=== PATIENT | female | born 1935 | race Caucasian/White ===

== ENCOUNTER → 2016-11-02 | Outpatient (CLI) | payer MEDICARE, OTHER | LOC: MW.CHFP 09:43 | PROVIDERS: ATTEND Family Medicine | DX: R73.01 Impaired fasting glucose (principal); Z53.9 Procedure and treatment not carried out, unspecified reason ==

== ENCOUNTER 2017-05-28 08:00 | Inpatient (IN) | payer MEDICARE, OTHER ==
[2017-07-03] MEDS ORDERED: Famotidine 20 MG/2 ML SDV IVPUSH SCH (06:00)
[2017-07-03] MEDS ORDERED: Ketorolac 15 MG/ML SDV IVPUSH SCH ×2 (06:00→14:15)
[2017-07-03] MEDS ORDERED: Scopolamine 1.5 MG Transdermal Patch TRDERM SCH (06:00)
[2017-07-03] MEDS ORDERED: Acetaminophen 1,000 MG in Premix Bag 1 BAG IV SCH ×2 (06:00→14:00)
[2017-07-03] MEDS ORDERED: Lactated Ringers 1,000 ML IV SCH (06:00)
[2017-07-03] MEDS ORDERED: oxyCODONE ER 10 MG TAB.ER PO SCH ×2 (06:00→21:00)
[2017-07-03] MEDS ORDERED: Tranexamic Acid 4,000 MG in Sodium Chloride 0.9% 100 ML IV SCH (08:00)
[2017-07-03] MEDS ORDERED: ceFAZolin 1 GM in Premix Bag 1 BAG IV SCH (08:00)
[2017-07-03] MEDS ORDERED: Ropivacaine 49.25 ML, Ketorolac 30 MG, EPINEPHrine 0.5 MG, cloNIDine 80 MCG in Sodium C... INJECT ONE (08:00)
[2017-07-03] MEDS ORDERED: Propofol 200 MG/20 ML SDV ONE (09:35)
[2017-07-03] MEDS ORDERED: Midazolam 1 MG/ML 2 ML SDV ONE (09:35)
[2017-07-03] MEDS ORDERED: diphenhydrAMINE 50 MG/ML SDV ONE (09:35)
[2017-07-03] MEDS ORDERED: Ondansetron 4 MG/2 ML SDV ONE (09:35)
[2017-07-03] MEDS ORDERED: fentaNYL 100 MCG/2 ML SDV ONE (09:35)
[2017-07-03] MEDS ORDERED: ceFAZolin 1 GM Vial ONE (09:36)
[2017-07-03] MEDS ORDERED: ePHEDrine 50 MG/ML SDV ONE (12:17)
[2017-07-03] MEDS ORDERED: oxyCODONE 5 MG Tab PO PRN (13:49)
[2017-07-03] MEDS ORDERED: HYDROmorphone 2 MG/ML Syringe IVPUSH PRN (14:21)
[2017-07-03] MEDS ORDERED: diphenhydrAMINE 50 MG Cap PO PRN (14:23)
[2017-07-03] MEDS ORDERED: Ondansetron 4 MG/2 ML SDV IVPUSH PRN (14:28)
[2017-07-03] MEDS ORDERED: Acetaminophen/HYDROcodone 325-10 MG Tab PO PRN (15:23)
[2017-07-03] MEDS ORDERED: oxyCODONE ER 10 MG TAB.ER ONE (17:24)
[2017-07-03] MEDS: Acetaminophen 1,000 MG in Premix Bag 1 BAG IV SCH ×2 (17:30→22:56)
--- NOTE | 2017-07-03 17:39 | PCM.CONS ---
H&P History of Present Illness - General Date of Service: 07/03/17 Admit Problem/Dx: Admission Diagnosis/Problem Admission Diagnosis/Problem Replacement of total knee joint Source of Information: Patient, Old Records (Dr. 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 Patient arrived to floor from PACU. She is alert and oriented, slightly drowsy. She denies chest pain, SOB or palpitations. No pain to L knee. Lam in place. Reports feeling well this morning prior to surgery and was doing well at home. Her plan is to return to home with upon discharge. ECHO 03/2016 reported EF 60-65% with some diastolic dysfunction, moderate pulmonary HTN, bioprosthetic aortic valve working well. PCP, Dr Burroughs. - Related Data Allergies/Adverse Reactions: Allergies Allergy/AdvReac Type Severity Reaction Status Date / Time nitrofurantoin Allergy Rash Verified 06/29/17 13:50 [From Macrobid] nitrofurantoin Allergy Rash Verified 06/29/17 13:50 macrocrystalline [From Macrobid] Home Medications: Home Meds Amitriptyline [Elavil] 5 mg PO BEDTIME 06/29/17 [History] Aspirin/Dipyridamole [Aspirin-Dipyridam ER 25-200 mg] 1 cap PO BIDMEALS [History] Calcium Carbonate [Calcium] 600 mg PO DAILY 06/29/17 [History] Cholecalciferol (Vitamin D3) [Vitamin D3] 1,000 unit PO DAILY 06/29/17 [History] Lisinopril 10 mg PO DAILY 06/29/17 [History] Metoprolol Tartrate 25 mg PO BID 06/29/17 [History] Multivitamin [Multiple Vitamins] 1 tab PO DAILY 06/29/17 [History] Vitamin B Complex [B Complex] 1 tab PO DAILY 06/29/17 [History] atorvaSTATin Calcium [Atorvastatin Calcium] 40 mg PO BEDTIME 06/29/17 [History] cycloSPORINE [Restasis Multidose] 1 drop EYEBOTH DAILY 06/29/17 [History] Past Medical History HEENT History: Reports: Cataract, Hard of Hearing, Other (See Below) Other HEENT History: wears glasses, 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 Denies: Asthma, COPD, PE Gastrointestinal History: Reports: Chronic Constipation, Irritable Bowel Syndrome Other Gastrointestinal History: lactose intolerant Genitourinary History: Reports: None. Denies: Chronic Renal Insuffiency Musculoskeletal History: Reports: Arthritis Neurological History: Reports: CVA Other Neuro History: after Aortic valve replacement, has hearing loss to L ear , but no other residual Endocrine/Metabolic History: Reports: None. Denies: Diabetes, Type II, Hypothyroidism Dermatologic History: Reports: Other (See Below) Other Dermatologic History: has 3 "spots" frozen on her forehead - Past Surgical History HEENT Surgical History: Reports: Cataract Surgery Cardiovascular Surgical History: Reports: Coronary Artery Bypass, Valve Replacement Other Cardiovascular Surgeries/Procedures: Aortic valve replacement GI Surgical History: Reports: Cholecystectomy Female Surgical History: Reports: Breast Biopsy Social & Family History - Tobacco Use Smoking Status *Q: Never Smoker - Recreational Drug Use Recreational Drug Use: No Drug Use in Last 12 Months: No H&P Review of Systems - Review of Systems: Review Of Systems: See Below General: Reports: No Symptoms. Denies: Fever, Chills, Malaise, Weakness HEENT: Reports: No Symptoms. Denies: Headaches, Sinus Congestion, Visual Changes Pulmonary: Reports: No Symptoms. Denies: Shortness of Breath Cardiovascular: Reports: No Symptoms. Denies: Chest Pain, Palpitations, Edema Gastrointestinal: Reports: No Symptoms. Denies: Abdominal Pain, Black Stool, Bloody Stool, Decreased Appetite, Nausea, Vomiting Genitourinary: Reports: Burning Musculoskeletal: Reports: No Symptoms Skin: Reports: No Symptoms Psychiatric: Reports: No Symptoms. Denies: Confusion Hematologic/Lymphatic: Reports: No Symptoms Immunologic: Reports: No Symptoms Exam - Exam Exam: See Below - Vital Signs Vital Signs: Last Vital Signs Temp 96.5 F 07/03/17 14:15 Pulse 58 L 07/03/17 14:15 Resp 18 07/03/17 14:15 BP 158/68 H 07/03/17 14:15 Pulse Ox 98 12/19/17 14:15 Weight: 60.328 kg - Exam Quality Assessment: Supplemental Oxygen, Urinary Catheter, DVT Prophylaxis General: Alert, Oriented, Cooperative HEENT: Conjunctiva Clear, Posterior Pharynx Clear, Pupils Reactive Neck: Supple, Trachea Midline, 2 Lungs: Clear to Auscultation, Normal Respiratory Effort Cardiovascular: Regular Rate, Regular Rhythm, Normal S1, Normal S2 GI/Abdominal Exam: Normal Bowel Sounds, Soft, Non-Tender, No Organomegaly, No Distention, No Abnormal Bruit, No Mass, Pelvis Stable Extremities: Normal Inspection, Normal Range of Motion, Non-Tender, No Pedal Edema, Normal Capillary Refill Neuro Extensive - Mental Status: Alert, Oriented x3, Normal Mood/Affect, Normal Cognition Neuro Extensive - Motor, Sensory, Reflexes: CN II-XII Intact Psychiatric: Alert, Normal Affect, Normal Mood Consult PN Assessment/Plan Procedures: Procedures ASSAY OF CK (CPK) (12/29/13) ASSAY OF FOLIC ACID SERUM (07/04/16) ASSAY OF FREE THYROXINE (09/21/14) ASSAY THYROID STIM HORMONE (09/21/14) CHEST X-RAY 2VW FRONTAL&LATL (05/10/17) COMPLETE CBC AUTOMATED (06/30/16) COMPLETE CBC W/AUTO DIFF WBC (06/25/17) COMPREHEN METABOLIC PANEL (01/23/17) DRAIN/INJ JOINT/BURSA W/O US (12/09/15) ELECTROCARDIOGRAM TRACING (05/10/17) GLYCOSYLATED HEMOGLOBIN TEST (05/10/17) IIV4 VACC NO PRSV 0.5 ML IM (05/10/16) LIPID PANEL (04/04/17) LOWER EXTREMITY STUDY (04/22/15) METABOLIC PANEL TOTAL CA (06/25/17) MICROBE SUSCEPTIBLE MAI (10/27/16) MRI JNT OF LWR EXTRE W/O DYE (04/26/17) OFFICE/OUTPATIENT VISIT EST (05/10/17) OFFICE/OUTPATIENT VISIT EST (04/10/17) OFFICE/OUTPATIENT VISIT EST (05/10/16) OFFICE/OUTPATIENT VISIT EST (08/31/15) OFFICE/OUTPATIENT VISIT EST (02/23/14) PCV13 VACCINE IM (05/10/16) PROTEIN E-PHORESIS SERUM (04/09/15) PROTHROMBIN TIME (05/10/17) ROUTINE VENIPUNCTURE (06/25/17) TRANSFERASE (AST) (SGOT) (12/29/13) TTE W/DOPPLER COMPLETE (06/01/17) URINALYSIS AUTO W/SCOPE (05/11/17) URINE BACTERIA CULTURE (10/27/16) URINE CULTURE/COLONY COUNT (02/21/17) VITAMIN B-12 (07/04/16) X-RAY EXAM OF KNEE 1 OR 2 (05/04/15) X-RAY EXAM OF KNEE 3 (04/09/15) (1) S/P total knee arthroplasty SNOMED Code(s): 3972897694291, 7214047665296 Code(s): Z96.659 - PRESENCE OF UNSPECIFIED ARTIFICIAL KNEE JOINT Current Visit: Yes Qualifiers: Laterality: left Qualified Code(s): Z96.652 - Presence of left artificial knee joint (2) HTN (hypertension) SNOMED Code(s): 38826854 Code(s): I10 - ESSENTIAL (PRIMARY) HYPERTENSION Current Visit: Yes Qualifiers: Hypertension type: essential hypertension Qualified Code(s): I10 - Essential (primary) hypertension (3) History of CVA with residual deficit SNOMED Code(s): 125051605 Code(s): I69.30 - UNSPECIFIED SEQUELAE OF CEREBRAL INFARCTION Current Visit : Yes (4) Hx of aortic valve replacement SNOMED Code(s): 9486605730754, 9220127997377 Code(s): Z95.2 - PRESENCE OF PROSTHETIC HEART VALVE Current Visit: Yes (5) Hx of CABG SNOMED Code(s): 114490704 Code(s): Z95.1 - PRESENCE OF AORTOCORONARY BYPASS GRAFT Current Visit: Yes (6) Pulmonary HTN SNOMED Code(s): 81471607 Code(s): I27.20 - PULMONARY HYPERTENSION, UNSPECIFIED Current Visit: Yes (7) Diastolic dysfunction SNOMED Code(s): 4798180 Code(s): I51.9 - HEART DISEASE, UNSPECIFIED Current Visit: Yes Problem List Initiated/Reviewed/Updated: Yes Plan: This 82 year old female admitted for L TKA Hospitalist service consulted for medical comorbidities 1. S/P L TKA: orders per Dr. Antonio 2. Hx AVR: Continue Aggrenox BID, starting tomorrow morning. 3. HTN: Stable. Continue Metoprolol, Lisinopril. BMP pending. 4. CAD, HX CABG: Stable, continue Atorvastatin. 5. Hx diastolic dysfunction, moderate pulmonary HTN: Will stop LR now, patient obtained 2 L LR in OR. appears euvolemic, would recommend small boluses if hydration needed. VTE prophylaxis: ASA stopped and switched to patient home medication Aggrenox BID.
--- NOTE | 2017-07-03 17:39 | PCM.OPNOTE ---
- General Post-Op/Procedure Note Date of Surgery/Procedure: 07/03/17 Operative Procedure(s): L TKA Post-Op Diagnosis: DJD left knee Anesthesia Technique: Moderate Sedation, Spinal Primary Surgeon: Elly Antonio Staff Nurse Icu Resource Team: Jamee Smith Staff Nurse Icu Resource Team: Miky Sutherland in mLs: 50 Condition: Good Free Text/Narrative:: tt=36 min #[id number]
[2017-07-03] MEDS: Metoprolol Tartrate 25 MG Tab PO SCH (18:20)
[2017-07-03] MEDS: ceFAZolin 1 GM in Premix Bag 1 BAG IV SCH (18:35)
--- NOTE | 2017-07-03 19:04 | OR ---
SURGEON: Elly Antonio MD DATE OF PROCEDURE: 07/03/2017 PREOPERATIVE DIAGNOSIS: Degenerative joint disease, left knee, tricompartmental. POSTOPERATIVE DIAGNOSIS: Degenerative joint disease, left knee, tricompartmental. PROCEDURE: Left total knee arthroplasty. COMPLAINT INVESTIGATIONS OFFICER: Jamee Smith PA-C and Miky Sutherland PA-C. ANESTHESIA: Spinal with sedation. ESTIMATED BLOOD LOSS: 50 mL. TOURNIQUET TIME: 36 minutes. COMPLICATIONS: None. DVT PROPHYLAXIS: PAS boot and SUSANA hose to the nonoperative leg. IMPLANTS USED: Keily Persona femoral component size 6 standard (LPS), tibial component size D, 11 mm all-polyethylene articular surface, and 32 mm all-polyethylene patella. FINDINGS: Intraoperative findings showed evidence of tricompartmental degenerative changes with complete eburnation of the bone along the medial femoral condyle and medial tibial plateau. Osteophyte formation was also noted. No significant synovitis was found. BRIEF HISTORY: Dilshad is an 82-year-old female, who has had complaint of progressive left knee pain. She had failed conservative treatment. Due to her lack of response to conservative treatment, I did recommend surgical intervention. The risks and goals of the procedure were discussed with the patient and were documented preoperatively. She agreed to proceed. DESCRIPTION OF PROCEDURE: The patient was properly identified and brought to the operating room. The patient was then transferred from the operating room cart and placed on the operating table in a supine position. Anesthesia was administered by the anesthesia staff. After adequate anesthesia was obtained, a well-padded tourniquet was applied to the surgical lower extremity. Lam catheter was placed. The lower extremity was then prepped in standard fashion using ChloraPrep solution. It was then sterilely draped. A time-out was performed to ensure correct site and procedure. Preoperative antibiotics were given along with one gram tranexamic acid IV. The surgical site had been marked preoperatively. An Esmarch was used to exsanguinate the right lower extremity and the tourniquet was inflated. An incision was made over the anterior aspect of the knee. The subcutaneous tissues were dissected down to the level of the fascia. A medial parapatellar approach to the knee was made. A portion of the infrapatellar fat pad was then excised. The distal femur was then exposed. The step reamer was used to gain access to the intramedullary canal. This was placed in 6 degrees of valgus. Pins were placed. The distal femoral cutting block was placed and the distal femoral cut was made. Instrumentation was then removed. The femur was then sized. Both Whitesides' line and the epicondylar axis were then marked with electrocautery. The 4-in-1 cutting block was placed. This was placed in a slightly externally rotated position, which corresponded well with the previously drawn lines. The cutting guide was then pinned into position. An Miguel Ángel wing guide was used to check the depth of resection of our anterior condylar cut and it was felt that no notching would occur. The anterior condylar cut was then made followed by the posterior condylar cut. Both the posterior chamfer and anterior chamfer cuts were then made. The cutting block was then removed along with the excess bony remnants. We then turned our attention to the tibia. The anterior cruciate ligament and posterior cruciate ligament were released and a posterior cruciate ligament retractor was placed to allow the tibia to be pulled anteriorly. The tibial extra-medullary guide was then positioned. We chose to take approximately 2 mm off of the lowest side. The proximal tibia cutting guide was then placed and screwed into position. The proximal tibial resection was then made with care being taken to protect the patellar tendon. The bony resection was then removed. The remainder of the medial and lateral meniscus were then excised. Care was taken to protect the popliteus tendon. The tibia was then sized to the appropriate size. The distal femur was then elevated. The posterior capsule was stripped off the distal femur both medially and laterally. The posterior capsule along with the medial and lateral gutters were then injected with a standard mixture consisting of clonidine, epinephrine, Toradol, and opivacaine, unless any allergies were found preoperatively. The femoral component was then placed onto the distal femur in a slightly lateral position. This fit the femur well. A box cut was then made without difficulty. This was then removed. The tibial trial along with the polyethylene liner was then placed. The knee came easily into full extension and was stable to varus and valgus stressing both in full extension and flexion. Any additional releases were performed at this time. We then returned our attention to the patella. The patella was everted and towel clamps were used to hold the patella in position. It was resected to a 15 millimeter thickness. It was then sized to the appropriate size. It was prepared in the usual fashion after placing the predetermined size clamps. This was placed in a slightly superior and medial position. The clamp was then removed. The patellar trial button was placed. The knee was taken through a range of motion using the no-touch technique. The patella tracked centrally. A drop mary was then placed to check alignment. All instruments were then removed from the knee. The tibial sizer was then placed on the tibia. The tibia was prepared in the usual fashion using the reamer and broach. This was then removed. All bony surfaces were copiously irrigated with Pulsavac solution. They were then suctioned dry. Cement was prepared on the back table in the usual manner. Antibiotic impregnated cement was used if the patient was diabetic. Once it was prepared, the bone ends were again suctioned dry. The tibia was cemented into place first. This was malleted into position. Excess cement was then cleared. The femur was then placed in a similar manner. We placed the polyethylene trial into place and the knee was brought into full extension. An axial load was placed while keeping the knee in full extension. The patella button was also cemented into position and the clamp was used to hold this in place as the cement was allowed to cure. The wound was copiously irrigated with saline using a pulsavac welder helper. Following this, 1 gram of tranexamic acid was applied topically to the wound during the curing process. After we had adequate curing of the cement, the knee was again taken through a range of motion. The size of the polyethylene was then determined. The polyethylene trial was then removed. The tibial tray was suctioned to make sure there was no remaining soft tissue or cement. Excess cement was cleared from around the edges of the prosthesis as well. The tourniquet was then deflated. We were able to observe for any excess bleeding and none was noted. Electrocautery was used to maintain hemostasis. An additional gram of tranexamic acid was given IV. The retractors were again placed and the predetermined polyethylene was then placed. This was locked into position without difficulty. The knee was again taken through a range of motion with no change from the prior exam. The fascial layer was closed with Number One Vicryl. The subcutaneous tissues were closed with 2-0 Vicryl. The skin was closed with regina. Xeroform gauze was placed over the wound and a bulky dressing was applied. The patient was then awakened from anesthesia and transferred back to the operating room cart. They were brought to the recovery room in stable condition. All needle and sponge counts were correct. ZEESHAN KIRK /[id number]
[2017-07-03] MEDS: Acetaminophen 500 MG Tab PO SCH (20:50)
[2017-07-03] MEDS: Amitriptyline 10 MG Tab PO SCH (20:57)
[2017-07-03] MEDS: Docusate Sodium 100 MG Cap PO SCH (20:57)
[2017-07-03] MEDS: atorvaSTATin 40 MG Tab PO SCH (20:57)
[2017-07-04] MEDS: ceFAZolin 1 GM in Premix Bag 1 BAG IV SCH (02:28)
[2017-07-04] MEDS: Acetaminophen 500 MG Tab PO SCH ×4 (02:33→22:53)
[2017-07-04] MEDS ORDERED: Acetaminophen 500 MG Tab PO SCH (05:00)
[2017-07-04] MEDS: Multivitamin Tab PO SCH (08:09)
[2017-07-04] MEDS: Docusate Sodium 100 MG Cap PO SCH ×2 (08:09→20:59)
[2017-07-04] MEDS: Cholecalciferol (Vitamin D3) 1,000 Unit Tab PO SCH (08:10)
--- NOTE | 2017-07-04 08:36 | PCM48HPAN ---
Post Anesthesia Note - EVALUATION WITHIN 48HRS OF ANESTHETIC Vital Signs in Normal Range: Yes Patient Participated in Evaluation: Yes Respiratory Function Stable: Yes Airway Patent: Yes Cardiovascular Function Stable: Yes Hydration Status Stable: Yes Pain Control Satisfactory: Yes Nausea and Vomiting Control Satisfactory: Yes Mental Status Recovered: Yes - COMMENTS/OBSERVATIONS Free Text/Narrative:: Patient sitting up in chair and states she is doing really well. Denies any complaints at this time
[2017-07-04] MEDS ORDERED: Sodium Chloride 0.9% 500 ML IV SCH ×2 (08:45→16:15)
[2017-07-04] MEDS ORDERED: Calcium Carbonate 500 MG Tab.Chew PO SCH (09:00)
[2017-07-04] MEDS ORDERED: Lisinopril 10 MG Tab PO SCH (09:00)
[2017-07-04] MEDS ORDERED: Aspirin 325 MG Tab.EC PO SCH (09:00)
[2017-07-04] MEDS: Metoprolol Tartrate 25 MG Tab PO SCH ×2 (09:00→16:32)
--- NOTE | 2017-07-04 09:11 | PCM.SURGPN ---
Addendum entered and electronically signed by Jamee Smith PA 07/04/17 11: 26: pt continues to be pleasantly confused. will d/c norco ordered tylenol 1000 mg PO q6h for pain control if tylenol is not adequate, please contact provider Original Note: <Jamee Smith - Last Filed: 07/04/17 09:07> - General Info Date of Service: 07/04/17 Date of Surgery/Procedure: 07/03/17 POD#: 1 Functional Status: Reports: Pain Controlled, Tolerating Diet, Ambulating - Review of Systems General: Reports: No Symptoms Pulmonary: Reports: No Symptoms Cardiovascular: Reports: No Symptoms Gastrointestinal: Reports: No Symptoms Musculoskeletal: Reports: Leg Pain Psychiatric: Reports: Confusion (per other providers, patient's baseline is pleasantly confused.) Systems Review Comment:: pt up to chair for breakfast pleasantly confused - believes she is at a conference no pain at rest, minimal with activity tolerating PO intake well no concerns today - Patient Data Vitals - Most Recent: Last Vital Signs Temp 97.6 F 07/04/17 08:07 Pulse 59 L 07/04/17 08:07 Resp 18 07/04/17 08:07 BP 104/52 L 07/04/17 08:07 Pulse Ox 92 L 07/04/17 08:07 Weight - Most Recent: 60.328 kg I&O - Last 24 Hours: Intake & Output 07/03/17 07/04/17 07/04/17 22:59 06:59 14:59 Intake Total 200 860 Output Total 0 350 Balance 200 510 Lab Results Last 24 Hrs: Laboratory Results - last 24 hr 07/03/17 07/03/17 07/03/17 Range/Units 10:35 16:00 16:00 WBC 8.32 (4.0-11.0) K/uL RBC 3.94 L (4.30-5.90) M/uL Hgb 13.1 (12.0-16.0) g/dL Hct 39.7 (36.0-46.0) % MCV 100.8 H (80.0-98.0) fL MCH 33.2 H (27.0-32.0) pg MCHC 33.0 (31.0-37.0) g/dL RDW Std Deviation 46.5 (28.0-62.0) fl RDW Coeff of Julissa 13 (11.0-15.0) % Plt Count 100 L (150-400) K/uL MPV 10.70 (7.40-12.00) fL Neut % (Auto) 71.8 (48.0-80.0) % Lymph % (Auto) 17.1 (16.0-40.0) % [place] % (Auto) 10.8 (0.0-15.0) % Eos % (Auto) 0.2 (0.0-7.0) % Baso % (Auto) 0.1 (0.0-1.5) % Neut # (Auto) 6.0 H (1.4-5.7) K/uL Lymph # (Auto) 1.4 (0.6-2.4) K/uL [place] # (Auto) 0.9 H (0.0-0.8) K/uL Eos # (Auto) 0.0 (0.0-0.7) K/uL Baso # (Auto) 0.0 (0.0-0.1) K/uL Nucleated RBC % 0.0 /100WBC Nucleated RBCs # 0 K/uL Sodium 137 (136-146) mmol/L Potassium 5.0 (3.5-5.1) mmol/L Chloride 103 (98-110) mmol/L Carbon Dioxide 28 (21-31) mmol/L BUN 16 (6.0-23.0) mg/dL Creatinine 1.2 (0.6-1.5) mg/dL Est Cr Clr Drug Dosing 27.27 mL/min Estimated GFR (MDRD) 43.0 ml/min Glucose 129 H (60-110) mg/dL Calcium 8.6 L (8.8-10.8) mg/dL Blood Type O POSITIVE Antibody Screen NEGATIVE 07/04/17 07/04/17 Range/Units 05:01 05:01 WBC (4.0-11.0) K/uL RBC (4.30-5.90) M/uL Hgb 11.9 L (12.0-16.0) g/dL Hct 36.1 (36.0-46.0) % MCV (80.0-98.0) fL MCH (27.0-32.0) pg MCHC (31.0-37.0) g/dL RDW Std Deviation (28.0-62.0) fl RDW Coeff of Julissa (11.0-15.0) % Plt Count (150-400) K/uL MPV (7.40-12.00) fL Neut % (Auto) (48.0-80.0) % Lymph % (Auto) (16.0-40.0) % [place] % (Auto) (0.0-15.0) % Eos % (Auto) (0.0-7.0) % Baso % (Auto) (0.0-1.5) % Neut # (Auto) (1.4-5.7) K/uL Lymph # (Auto) (0.6-2.4) K/uL [place] # (Auto) (0.0-0.8) K/uL Eos # (Auto) (0.0-0.7) K/uL Baso # (Auto) (0.0-0.1) K/uL Nucleated RBC % /100WBC Nucleated RBCs # K/uL Sodium 137 (136-146) mmol/L Potassium 4.8 (3.5-5.1) mmol/L Chloride 102 (98-110) mmol/L Carbon Dioxide 27 (21-31) mmol/L BUN 21 (6.0-23.0) mg/dL Creatinine 1.7 H (0.6-1.5) mg/dL Est Cr Clr Drug Dosing 19.25 mL/min Estimated GFR (MDRD) 28.8 ml/min Glucose 116 H (60-110) mg/dL Calcium 8.5 L (8.8-10.8) mg/dL Blood Type Antibody Screen Med Orders - Current: Current Medications Acetaminophen (Tylenol Extra Strength) 1,000 mg PO Q6H [facility] Last Admin: 07/04/17 05:17 Dose: 1,000 mg Hydrocodone Bitart/Acetaminophen ([place] 325-10 Mg) 1 - 2 tab PO Q4H PRN PRN Reason: Pain Last Admin: 07/04/17 02:36 Dose: 1 tab Amitriptyline HCl (Elavil) 5 mg PO BEDTIME [facility] Last Admin: 07/03/17 20:57 Dose: 5 mg Atorvastatin Calcium (Lipitor) 40 mg PO BEDTIME [facility] Last Admin: 07/03/17 20:57 Dose: 40 mg Calcium Carbonate/Glycine (Tums) 600 mg PO DAILY [facility] Last Admin: 07/04/17 08:10 Dose: 600 mg Cholecalciferol (Vitamin D3) 1,000 units PO DAILY [facility] Last Admin: 07/04/17 08:10 Dose: 1,000 units Diphenhydramine HCl (Benadryl) 25 - 50 mg PO Q6H PRN PRN Reason: Itching Dipyridamole/Aspirin (Aggrenox 200-25 Mg) 1 cap PO BIDMEALS [facility] Docusate Sodium (Colace) 100 mg PO BID [facility] Last Admin: 07/04/17 08:09 Dose: 100 mg Hydromorphone HCl (Dilaudid) 0.5 - 1 mg IVPUSH Q3H PRN PRN Reason: Pain Sodium Chloride (Normal Saline) 500 mls @ 175 mls/hr IV ASDIRECTED [facility] Stop: 07/04/17 11:37 Metoprolol Tartrate (Lopressor) 25 mg PO BIDMEALS [facility] Last Admin: 07/03/17 18:20 Dose: 25 mg Multivitamins/Minerals/Vitamin C (Tab-A-Tone) 1 tab PO DAILY [facility] Last Admin: 07/04/17 08:09 Dose: 1 tab Ondansetron HCl (Zofran) 4 mg IVPUSH Q6H PRN PRN Reason: Nausea/Vomiting Cyclosporine [ Restasis Multidose] 1 Drop 1 each EYEBOTH DAILY [facility] Vitamin B Complex 1 (Tab) 1 each PO DAILY [facility] Discontinued Medications Acetaminophen (Tylenol Extra Strength) 1,000 mg PO Q6H [facility] Last Admin: 07/04/17 02:33 Dose: Not Given Aspirin (Ecotrin) 325 mg PO BID [facility] Cefazolin Sodium (Ancef) Confirm Administered Dose 1 gm .ROUTE .STK-MED ONE Stop: 07/03/17 09:37 Diphenhydramine HCl (Benadryl) Confirm Administered Dose 50 mg .ROUTE .STK-MED ONE Stop: 07/03/17 09:36 Ephedrine Sulfate (Ephedrine Sulfate) Confirm Administered Dose 50 mg .ROUTE .STK-MED ONE Stop: 07/03/17 12:18 Famotidine (Pepcid) 40 mg IVPUSH ONARRIVE [facility] Stop: 07/03/17 14:01 Fentanyl (Sublimaze) Confirm Administered Dose 100 mcg .ROUTE .STK-MED ONE Stop: 07/03/17 09:36 Acetaminophen 1,000 mg/ Premix 100 mls @ 400 mls/hr IV ONARRIVE [facility] Stop: 07/03/17 14:01 Cefazolin Sodium/Dextrose 1 gm (/ Premix) 50 mls @ 100 mls/hr IV ONCALL [facility] Stop: 07/03/17 14:01 Ropivacaine 49.25 ml/Ketorolac Tromethamine 30 mg/Epinephrine HCl 0.5 mg/ Clonidine HCl 80 mcg/ Sodium Chloride 100 mls @ 50 mls/hr INJECT SEECOMMENT ONE Stop: 07/03/17 09:59 Lactated Ringer's (Ringers, Lactated) 1,000 mls @ 100 mls/hr IV ASDIRECTED [facility] Tranexamic Acid 4,000 mg/ (Sodium Chloride) 140 mls @ 600 mls/hr IV ASDIRECTED [facility] Stop: 07/03/17 14:01 Acetaminophen 1,000 mg/ Premix 100 mls @ 400 mls/hr IV Q6H [facility] Stop: 07/03/17 20:00 Last Admin: 07/03/17 19:38 Dose: Not Given Cefazolin Sodium/Dextrose 1 gm (/ Premix) 50 mls @ 100 mls/hr IV Q8H [facility] Stop: 07/04/17 02:00 Last Admin: 07/04/17 02:28 Dose: 100 mls/hr Acetaminophen 1,000 mg/ Premix 100 mls @ 400 mls/hr IV Q6H [facility] Stop: 07/03/17 23:30 Last Admin: 07/03/17 22:56 Dose: 400 mls/hr Cefazolin Sodium/Dextrose (Ancef) Confirm Administered Dose 50 mls @ as directed .ROUTE .STK-MED ONE Stop: 07/03/17 09:36 Acetaminophen (Ofirmev) Confirm Administered Dose 100 mls @ as directed IV .STK- MED ONE Stop: 07/03/17 17:30 Ketorolac Tromethamine (Toradol) 15 mg IVPUSH ONARRIVE [facility] Stop: 07/03/17 14:01 Ketorolac Tromethamine (Toradol) 15 mg IVPUSH Q6H [facility] Stop: 07/04/17 04:00 Last Admin: 07/03/17 19:38 Dose: Not Given Lisinopril (Prinivil) 10 mg PO DAILY [facility] Midazolam HCl (Versed 1 Mg/Ml) Confirm Administered Dose 2 mg .ROUTE .STK-MED ONE Stop: 07/03/17 09:36 Ondansetron HCl (Zofran) Confirm Administered Dose 4 mg .ROUTE .STK-MED ONE Stop: 07/03/17 09:36 Oxycodone HCl (Oxycontin) 10 mg PO ONARRIVE [facility] Stop: 07/03/17 14:01 Oxycodone HCl (Oxycontin) 10 mg PO Q12HR [facility] Oxycodone HCl (Oxycodone) 5 - 10 mg PO Q4H PRN PRN Reason: Pain Oxycodone HCl (Oxycontin) Confirm Administered Dose 10 mg .ROUTE .STK-MED ONE Stop: 07/03/17 17:25 Propofol (Diprivan 20 Ml) Confirm Administered Dose 400 mg .ROUTE .STK-MED ONE Stop: 07/03/17 09:36 Scopolamine (Transderm-Scop) 1.5 mg TRDERM ONARRIVE [facility] Tranexamic Acid (Cyklokapron) Confirm Administered Dose 4,000 mg .ROUTE .STK- MED ONE Stop: 07/03/17 07:22 - Exam Wound/Incisions: Dressing Dry and Intact General: Alert, Oriented Cardiovascular: Regular Rate, Regular Rhythm Extremities: Other (exam LLE - at/ehl/gastroc 5/5, dp 2+, sensation intact distally. ) Physical Findings Comment:: vss, afeb uo 450mL hgb 11.9 Cr 1.7 - Problem List Review Problem List Initiated/Reviewed/Updated: Yes - My Orders Last 24 Hours: Active Orders 24 hr Category Date Time Status Insert Urinary Catheter [OM.PC] Q24H Care 07/04/17 08:00 Ordered Remove Regalado Catheter [Urinary Catheter Removal] [RC] Care 07/04/17 09:06 Ordered Per Unit Routine Consult to Physical Therapy [PT Evaluation and Cons 07/03/17 14:29 Active Treatment] [CONS] Routine Regular Diet [DIET] Diet 07/03/17 Dinner Active HEMOGLOBIN/HEMATOCRIT,HH [HEME] DAILY Lab 07/05/17 05:00 Ordered HEMOGLOBIN/HEMATOCRIT,HH [HEME] DAILY Lab 07/06/17 05:00 Ordered Acetaminophen [Tylenol Extra Strength] Med 07/04/17 05:00 Active 1,000 mg PO Q6H Acetaminophen/HYDROcodone [Pingree 325-10 MG] Med 07/03/17 15:23 Active 1 - 2 tab PO Q4H PRN Amitriptyline [Elavil] Med 07/03/17 21:00 Active 5 mg PO BEDTIME Aspirin/Dipyridamole [Aggrenox 200-25 MG] Med 07/04/17 09:00 Active 1 cap PO BIDMEALS Calcium Carbonate [Tums] Med 07/04/17 09:00 Active 600 mg PO DAILY Cholecalciferol (Vitamin D3) [Vitamin D3] Med 07/04/17 09:00 Active 1,000 units PO DAILY Docusate Sodium [Colace] Med 07/03/17 21:00 Active 100 mg PO BID HYDROmorphone [Dilaudid] Med 07/03/17 14:21 Active 0.5 - 1 mg IVPUSH Q3H PRN Metoprolol Tartrate [Lopressor] Med 07/03/17 17:00 Active 25 mg PO BIDMEALS Multivitamins [Tab-A-Tone] Med 07/04/17 09:00 Active 1 tab PO DAILY Ondansetron [Zofran] Med 07/03/17 14:28 Active 4 mg IVPUSH Q6H PRN Patient's Own Medication [Ptom] Med 07/04/17 09:00 Active 1 each EYEBOTH DAILY Patient's Own Medication [Ptom] Med 07/04/17 09:00 Active 1 each PO DAILY Sodium Chloride 0.9% [Normal Saline] 500 ml Med 07/04/17 08:45 Active IV ASDIRECTED atorvaSTATin [Lipitor] Med 07/03/17 21:00 Active 40 mg PO BEDTIME diphenhydrAMINE [Benadryl] Med 07/03/17 14:23 Active 25 - 50 mg PO Q6H PRN Ice Therapy [OM.PC] Routine Oth 07/03/17 14:30 Ordered Medication Orders Acetaminophen (Tylenol Extra Strength) 1,000 mg PO Q6H [facility] Last Admin: 07/04/17 05:17 Dose: 1,000 mg Hydrocodone Bitart/Acetaminophen (Pingree 325-10 Mg) 1 - 2 tab PO Q4H PRN PRN Reason: Pain Last Admin: 07/04/17 02:36 Dose: 1 tab Amitriptyline HCl (Elavil) 5 mg PO BEDTIME [facility] Last Admin: 07/03/17 20:57 Dose: 5 mg Atorvastatin Calcium (Lipitor) 40 mg PO BEDTIME [facility] Last Admin: 07/03/17 20:57 Dose: 40 mg Calcium Carbonate/Glycine (Tums) 600 mg PO DAILY [facility] Last Admin: 07/04/17 08:10 Dose: 600 mg Cholecalciferol (Vitamin D3) 1,000 units PO DAILY [facility] Last Admin: 07/04/17 08:10 Dose: 1,000 units Diphenhydramine HCl (Benadryl) 25 - 50 mg PO Q6H PRN PRN Reason: Itching Dipyridamole/Aspirin (Aggrenox 200-25 Mg) 1 cap PO BIDMEALS [facility] Docusate Sodium (Colace) 100 mg PO BID [facility] Last Admin: 07/04/17 08:09 Dose: 100 mg Admin: 07/03/17 20:57 Dose: 100 mg Hydromorphone HCl (Dilaudid) 0.5 - 1 mg IVPUSH Q3H PRN PRN Reason: Pain Sodium Chloride (Normal Saline) 500 mls @ 175 mls/hr IV ASDIRECTED [facility] Stop: 07/04/17 11:37 Metoprolol Tartrate (Lopressor) 25 mg PO BIDMEALS [facility] Last Admin: 07/03/17 18:20 Dose: 25 mg Multivitamins/Minerals/Vitamin C (Tab-A-Tone) 1 tab PO DAILY [facility] Last Admin: 07/04/17 08:09 Dose: 1 tab Ondansetron HCl (Zofran) 4 mg IVPUSH Q6H PRN PRN Reason: Nausea/Vomiting Cyclosporine [ Restasis Multidose] 1 Drop 1 each EYEBOTH DAILY [facility] Vitamin B Complex 1 (Tab) 1 each PO DAILY [facility] - Assessment Assessment (Free Text/Narrative):: POD#1 L TKA acute posthemorrhagic anemia - Plan Plan (Free Text/Narrative):: DC regalado fluid bolus per hospitalist PT today home aggrenox as DVT prophylaxis if pain controlled and does well with PT, will d/ch to home today dressing change prior to discharge <Elly Antonio R - Last Filed: 12/20/17 12:20> - Patient Data Vitals - Most Recent: Last Vital Signs Temp 97.6 F 07/04/17 08:07 Pulse 65 07/04/17 11:33 Resp 18 07/04/17 08:07 BP 107/46 L 07/04/17 11:33 Pulse Ox 97 07/04/17 11:33 I&O - Last 24 Hours: Intake & Output 07/03/17 07/04/17 07/04/17 22:59 06:59 14:59 Intake Total 200 860 Output Total 0 350 Balance 200 510 Lab Results Last 24 Hrs: Laboratory Results - last 24 hr 07/03/17 07/03/17 07/03/17 Range/Units 10:35 16:00 16:00 WBC 8.32 (4.0-11.0) K/uL RBC 3.94 L (4.30-5.90) M/uL Hgb 13.1 (12.0-16.0) g/dL Hct 39.7 (36.0-46.0) % MCV 100.8 H (80.0-98.0) fL MCH 33.2 H (27.0-32.0) pg MCHC 33.0 (31.0-37.0) g/dL RDW Std Deviation 46.5 (28.0-62.0) fl RDW Coeff of Julissa 13 (11.0-15.0) % Plt Count 100 L (150-400) K/uL MPV 10.70 (7.40-12.00) fL Neut % (Auto) 71.8 (48.0-80.0) % Lymph % (Auto) 17.1 (16.0-40.0) % [place] % (Auto) 10.8 (0.0-15.0) % Eos % (Auto) 0.2 (0.0-7.0) % Baso % (Auto) 0.1 (0.0-1.5) % Neut # (Auto) 6.0 H (1.4-5.7) K/uL Lymph # (Auto) 1.4 (0.6-2.4) K/uL [place] # (Auto) 0.9 H (0.0-0.8) K/uL Eos # (Auto) 0.0 (0.0-0.7) K/uL Baso # (Auto) 0.0 (0.0-0.1) K/uL Nucleated RBC % 0.0 /100WBC Nucleated RBCs # 0 K/uL Sodium 137 (136-146) mmol/L Potassium 5.0 (3.5-5.1) mmol/L Chloride 103 (98-110) mmol/L Carbon Dioxide 28 (21-31) mmol/L BUN 16 (6.0-23.0) mg/dL Creatinine 1.2 (0.6-1.5) mg/dL Est Cr Clr Drug Dosing 27.27 mL/min Estimated GFR (MDRD) 43.0 ml/min Glucose 129 H (60-110) mg/dL Calcium 8.6 L (8.8-10.8) mg/dL Blood Type O POSITIVE Antibody Screen NEGATIVE 07/04/17 07/04/17 Range/Units 05:01 05:01 WBC (4.0-11.0) K/uL RBC (4.30-5.90) M/uL Hgb 11.9 L (12.0-16.0) g/dL Hct 36.1 (36.0-46.0) % MCV (80.0-98.0) fL MCH (27.0-32.0) pg MCHC (31.0-37.0) g/dL RDW Std Deviation (28.0-62.0) fl RDW Coeff of Julissa (11.0-15.0) % Plt Count (150-400) K/uL MPV (7.40-12.00) fL Neut % (Auto) (48.0-80.0) % Lymph % (Auto) (16.0-40.0) % [place] % (Auto) (0.0-15.0) % Eos % (Auto) (0.0-7.0) % Baso % (Auto) (0.0-1.5) % Neut # (Auto) (1.4-5.7) K/uL Lymph # (Auto) (0.6-2.4) K/uL [place] # (Auto) (0.0-0.8) K/uL Eos # (Auto) (0.0-0.7) K/uL Baso # (Auto) (0.0-0.1) K/uL Nucleated RBC % /100WBC Nucleated RBCs # K/uL Sodium 137 (136-146) mmol/L Potassium 4.8 (3.5-5.1) mmol/L Chloride 102 (98-110) mmol/L Carbon Dioxide 27 (21-31) mmol/L BUN 21 (6.0-23.0) mg/dL Creatinine 1.7 H (0.6-1.5) mg/dL Est Cr Clr Drug Dosing 19.25 mL/min Estimated GFR (MDRD) 28.8 ml/min Glucose 116 H (60-110) mg/dL Calcium 8.5 L (8.8-10.8) mg/dL Blood Type Antibody Screen Med Orders - Current: Current Medications Acetaminophen (Tylenol Extra Strength) 1,000 mg PO Q6H [facility] Last Admin: 07/04/17 11:38 Dose: 1,000 mg Amitriptyline HCl (Elavil) 5 mg PO BEDTIME [facility] Last Admin: 07/03/17 20:57 Dose: 5 mg Atorvastatin Calcium (Lipitor) 40 mg PO BEDTIME [facility] Last Admin: 07/03/17 20:57 Dose: 40 mg Calcium Carbonate/Glycine (Tums) 600 mg PO DAILY [facility] Last Admin: 07/04/17 08:10 Dose: 600 mg Cholecalciferol (Vitamin D3) 1,000 units PO DAILY [facility] Last Admin: 07/04/17 08:10 Dose: 1,000 units Diphenhydramine HCl (Benadryl) 25 - 50 mg PO Q6H PRN PRN Reason: Itching Dipyridamole/Aspirin (Aggrenox 200-25 Mg) 1 cap PO BIDMEALS [facility] Last Admin: 07/04/17 09:21 Dose: 1 cap Docusate Sodium (Colace) 100 mg PO BID [facility] Last Admin: 07/04/17 08:09 Dose: 100 mg Hydromorphone HCl (Dilaudid) 0.5 - 1 mg IVPUSH Q3H PRN PRN Reason: Pain Metoprolol Tartrate (Lopressor) 25 mg PO BIDMEALS [facility] Last Admin: 07/04/17 09:00 Dose: Not Given Multivitamins/Minerals/Vitamin C (Tab-A-Tone) 1 tab PO DAILY [facility] Last Admin: 07/04/17 08:09 Dose: 1 tab Ondansetron HCl (Zofran) 4 mg IVPUSH Q6H PRN PRN Reason: Nausea/Vomiting Cyclosporine [ Restasis Multidose] 1 Drop 1 each EYEBOTH DAILY [facility] Last Admin: 07/04/17 10:02 Dose: Not Given Vitamin B Complex 1 (Tab) 1 each PO DAILY [facility] Last Admin: 07/04/17 10:02 Dose: Not Given Discontinued Medications Acetaminophen (Tylenol Extra Strength) 1,000 mg PO Q6H [facility] Last Admin: 07/04/17 02:33 Dose: Not Given Acetaminophen (Tylenol Extra Strength) 1,000 mg PO Q6H [facility] Last Admin: 07/04/17 05:17 Dose: 1,000 mg Hydrocodone Bitart/Acetaminophen (Pingree 325-10 Mg) 1 - 2 tab PO Q4H PRN PRN Reason: Pain Last Admin: 07/04/17 02:36 Dose: 1 tab Aspirin (Ecotrin) 325 mg PO BID [facility] Cefazolin Sodium (Ancef) Confirm Administered Dose 1 gm .ROUTE .STK-MED ONE Stop: 07/03/17 09:37 Diphenhydramine HCl (Benadryl) Confirm Administered Dose 50 mg .ROUTE .STK-MED ONE Stop: 07/03/17 09:36 Ephedrine Sulfate (Ephedrine Sulfate) Confirm Administered Dose 50 mg .ROUTE .STK-MED ONE Stop: 07/03/17 12:18 Famotidine (Pepcid) 40 mg IVPUSH ONARRIVE [facility] Stop: 07/03/17 14:01 Fentanyl (Sublimaze) Confirm Administered Dose 100 mcg .ROUTE .STK-MED ONE Stop: 07/03/17 09:36 Acetaminophen 1,000 mg/ Premix 100 mls @ 400 mls/hr IV ONARRIVE [facility] Stop: 07/03/17 14:01 Cefazolin Sodium/Dextrose 1 gm (/ Premix) 50 mls @ 100 mls/hr IV ONCALL [facility] Stop: 07/03/17 14:01 Ropivacaine 49.25 ml/Ketorolac Tromethamine 30 mg/Epinephrine HCl 0.5 mg/ Clonidine HCl 80 mcg/ Sodium Chloride 100 mls @ 50 mls/hr INJECT SEECOMMENT ONE Stop: 07/03/17 09:59 Lactated Ringer's (Ringers, Lactated) 1,000 mls @ 100 mls/hr IV ASDIRECTED [facility] Tranexamic Acid 4,000 mg/ (Sodium Chloride) 140 mls @ 600 mls/hr IV ASDIRECTED [facility] Stop: 07/03/17 14:01 Acetaminophen 1,000 mg/ Premix 100 mls @ 400 mls/hr IV Q6H [facility] Stop: 07/03/17 20:00 Last Admin: 07/03/17 19:38 Dose: Not Given Cefazolin Sodium/Dextrose 1 gm (/ Premix) 50 mls @ 100 mls/hr IV Q8H [facility] Stop: 07/04/17 02:00 Last Admin: 07/04/17 02:28 Dose: 100 mls/hr Acetaminophen 1,000 mg/ Premix 100 mls @ 400 mls/hr IV Q6H [facility] Stop: 07/03/17 23:30 Last Admin: 07/03/17 22:56 Dose: 400 mls/hr Cefazolin Sodium/Dextrose (Ancef) Confirm Administered Dose 50 mls @ as directed .ROUTE .STK-MED ONE Stop: 07/03/17 09:36 Acetaminophen (Ofirmev) Confirm Administered Dose 100 mls @ as directed IV .STK- MED ONE Stop: 07/03/17 17:30 Sodium Chloride (Normal Saline) 500 mls @ 175 mls/hr IV ASDIRECTED [facility] Stop: 07/04/17 11:37 Last Admin: 07/04/17 09:23 Dose: 175 mls/hr Ketorolac Tromethamine (Toradol) 15 mg IVPUSH ONARRIVE [facility] Stop: 07/03/17 14:01 Ketorolac Tromethamine (Toradol) 15 mg IVPUSH Q6H [facility] Stop: 07/04/17 04:00 Last Admin: 07/03/17 19:38 Dose: Not Given Lisinopril (Prinivil) 10 mg PO DAILY [facility] Midazolam HCl (Versed 1 Mg/Ml) Confirm Administered Dose 2 mg .ROUTE .STK-MED ONE Stop: 07/03/17 09:36 Ondansetron HCl (Zofran) Confirm Administered Dose 4 mg .ROUTE .STK-MED ONE Stop: 07/03/17 09:36 Oxycodone HCl (Oxycontin) 10 mg PO ONARRIVE [facility] Stop: 07/03/17 14:01 Oxycodone HCl (Oxycontin) 10 mg PO Q12HR [facility] Oxycodone HCl (Oxycodone) 5 - 10 mg PO Q4H PRN PRN Reason: Pain Oxycodone HCl (Oxycontin) Confirm Administered Dose 10 mg .ROUTE .STK-MED ONE Stop: 07/03/17 17:25 Propofol (Diprivan 20 Ml) Confirm Administered Dose 400 mg .ROUTE .STK-MED ONE Stop: 07/03/17 09:36 Scopolamine (Transderm-Scop) 1.5 mg TRDERM ONARRIVE [facility] Tranexamic Acid (Cyklokapron) Confirm Administered Dose 4,000 mg .ROUTE .STK- MED ONE Stop: 07/03/17 07:22 - My Orders Last 24 Hours: Active Orders 24 hr Category Date Time Status Insert Urinary Catheter [OM.PC] Q24H Care 07/04/17 08:00 Ordered Remove Regalado Catheter [Urinary Catheter Removal] [RC] Care 07/04/17 09:06 Active Per Unit Routine Consult to Physical Therapy [PT Evaluation and Cons 07/03/17 14:29 Active Treatment] [CONS] Routine Regular Diet [DIET] Diet 07/03/17 Dinner Active HEMOGLOBIN/HEMATOCRIT,HH [HEME] DAILY Lab 07/05/17 05:00 Ordered HEMOGLOBIN/HEMATOCRIT,HH [HEME] DAILY Lab 07/06/17 05:00 Ordered Acetaminophen [Tylenol Extra Strength] Med 07/04/17 11:30 Active 1,000 mg PO Q6H Amitriptyline [Elavil] Med 07/03/17 21:00 Active 5 mg PO BEDTIME Aspirin/Dipyridamole [Aggrenox 200-25 MG] Med 07/04/17 09:00 Active 1 cap PO BIDMEALS Calcium Carbonate [Tums] Med 07/04/17 09:00 Active 600 mg PO DAILY Cholecalciferol (Vitamin D3) [Vitamin D3] Med 07/04/17 09:00 Active 1,000 units PO DAILY Docusate Sodium [Colace] Med 07/03/17 21:00 Active 100 mg PO BID HYDROmorphone [Dilaudid] Med 07/03/17 14:21 Active 0.5 - 1 mg IVPUSH Q3H PRN Metoprolol Tartrate [Lopressor] Med 07/03/17 17:00 Active 25 mg PO BIDMEALS Multivitamins [Tab-A-Tone] Med 07/04/17 09:00 Active 1 tab PO DAILY Ondansetron [Zofran] Med 07/03/17 14:28 Active 4 mg IVPUSH Q6H PRN Patient's Own Medication [Ptom] Med 07/04/17 09:00 Active 1 each EYEBOTH DAILY Patient's Own Medication [Ptom] Med 07/04/17 09:00 Active 1 each PO DAILY atorvaSTATin [Lipitor] Med 07/03/17 21:00 Active 40 mg PO BEDTIME diphenhydrAMINE [Benadryl] Med 07/03/17 14:23 Active 25 - 50 mg PO Q6H PRN Ice Therapy [OM.PC] Routine Oth 07/03/17 14:30 Ordered Medication Orders Acetaminophen (Tylenol Extra Strength) 1,000 mg PO Q6H [facility] Last Admin: 07/04/17 11:38 Dose: 1,000 mg Amitriptyline HCl (Elavil) 5 mg PO BEDTIME [facility] Last Admin: 07/03/17 20:57 Dose: 5 mg Atorvastatin Calcium (Lipitor) 40 mg PO BEDTIME [facility] Last Admin: 07/03/17 20:57 Dose: 40 mg Calcium Carbonate/Glycine (Tums) 600 mg PO DAILY [facility] Last Admin: 07/04/17 08:10 Dose: 600 mg Cholecalciferol (Vitamin D3) 1,000 units PO DAILY [facility] Last Admin: 07/04/17 08:10 Dose: 1,000 units Diphenhydramine HCl (Benadryl) 25 - 50 mg PO Q6H PRN PRN Reason: Itching Dipyridamole/Aspirin (Aggrenox 200-25 Mg) 1 cap PO BIDMEALS [facility] Last Admin: 07/04/17 09:21 Dose: 1 cap Docusate Sodium (Colace) 100 mg PO BID [facility] Last Admin: 07/04/17 08:09 Dose: 100 mg Admin: 07/03/17 20:57 Dose: 100 mg Hydromorphone HCl (Dilaudid) 0.5 - 1 mg IVPUSH Q3H PRN PRN Reason: Pain Metoprolol Tartrate (Lopressor) 25 mg PO BIDMEALS [facility] Last Admin: 07/04/17 09:00 Dose: Not Given Admin: 07/03/17 18:20 Dose: 25 mg Multivitamins/Minerals/Vitamin C (Tab-A-Tone) 1 tab PO DAILY [facility] Last Admin: 07/04/17 08:09 Dose: 1 tab Ondansetron HCl (Zofran) 4 mg IVPUSH Q6H PRN PRN Reason: Nausea/Vomiting Cyclosporine [ Restasis Multidose] 1 Drop 1 each EYEBOTH DAILY [facility] Last Admin: 07/04/17 10:02 Dose: Vitamin B Complex 1 (Tab) 1 each PO DAILY [facility] Last Admin: 07/04/17 10:02 Dose: - Plan Plan (Free Text/Narrative):: 1115 Patient seen and examined. Agree with the above note. Patient has some confusion today which is slightly more confused than her baseline. She states she is not having any pain in the knee. She did well with physical therapy. Appreciate hospitalist management with medical comorbidities. Exam of the knee shows a dressing to be dry and intact. AT/EHL/gastroc 5/5. Sensation grossly intact. DP/PT pulses 2+. 1. Minimize narcotic usage. Will give scheduled Tylenol. 2. Resume Aggrenox for DVT prophylaxis. 3. Continue physical therapy 4. Plan discharge home tomorrow. erick
[2017-07-04] MEDS: Aspirin/Dipyridamole 200-25 MG Cap.ER PO SCH ×2 (09:21→16:31)
--- NOTE | 2017-07-04 09:35 | CR ---
EXAMINATION: Left knee HISTORY: TKA COMPARISON: 04/26/2017 TECHNIQUE: 2 views FINDINGS/IMPRESSION: Left total knee hardware is demonstrated in good position and alignment. Postope rative soft tissue changes are noted.
[2017-07-04] MEDS: Vitamin B Complex 1 TAB PO SCH (10:02)
[2017-07-04] MEDS: Cyclosporine [Restasis Multidose] 1 DROP EYEBOTH SCH (10:02)
--- NOTE | 2017-07-04 10:04 | PCM.CONSN ---
- General Info Date of Service: 07/04/17 Admission Dx/Problem (Free Text): Admission Diagnosis/Problem Admission Diagnosis/Problem Replacement of total knee joint Subjective Update: Sitting up in the chair today. Denies any pain, no chest pain or SOB, Had to be remind she had knee surgery. Functional Status: Reports: Pain Controlled, Tolerating Diet, Ambulating - Review of Systems General: Reports: No Symptoms. Denies: Fever Pulmonary: Reports: No Symptoms. Denies: Shortness of Breath Cardiovascular: Reports: No Symptoms. Denies: Chest Pain Gastrointestinal: Reports: No Symptoms. Denies: Abdominal Pain, Nausea, Vomiting Genitourinary: Reports: No Symptoms. Denies: Dysuria, Frequency Psychiatric: Reports: No Symptoms. Denies: Confusion - Patient Data Vitals - Most Recent: Last Vital Signs Temp 97.6 F 07/04/17 08:07 Pulse 59 L 07/04/17 08:07 Resp 18 07/04/17 08:07 BP 104/52 L 07/04/17 08:07 Pulse Ox 92 L 07/04/17 08:07 Weight - Most Recent: 60.328 kg I&O - Last 24 Hours: Intake & Output 07/03/17 07/04/17 07/04/17 22:59 06:59 14:59 Intake Total 200 860 Output Total 0 350 Balance 200 510 Lab Results Last 24 Hours: Laboratory Results - last 24 hr 07/03/17 07/03/17 07/03/17 Range/Units 10:35 16:00 16:00 WBC 8.32 (4.0-11.0) K/uL RBC 3.94 L (4.30-5.90) M/uL Hgb 13.1 (12.0-16.0) g/dL Hct 39.7 (36.0-46.0) % MCV 100.8 H (80.0-98.0) fL MCH 33.2 H (27.0-32.0) pg MCHC 33.0 (31.0-37.0) g/dL RDW Std Deviation 46.5 (28.0-62.0) fl RDW Coeff of Julissa 13 (11.0-15.0) % Plt Count 100 L (150-400) K/uL MPV 10.70 (7.40-12.00) fL Neut % (Auto) 71.8 (48.0-80.0) % Lymph % (Auto) 17.1 (16.0-40.0) % Long % (Auto) 10.8 (0.0-15.0) % Eos % (Auto) 0.2 (0.0-7.0) % Baso % (Auto) 0.1 (0.0-1.5) % Neut # (Auto) 6.0 H (1.4-5.7) K/uL Lymph # (Auto) 1.4 (0.6-2.4) K/uL Long # (Auto) 0.9 H (0.0-0.8) K/uL Eos # (Auto) 0.0 (0.0-0.7) K/uL Baso # (Auto) 0.0 (0.0-0.1) K/uL Nucleated RBC % 0.0 /100WBC Nucleated RBCs # 0 K/uL Sodium 137 (136-146) mmol/L Potassium 5.0 (3.5-5.1) mmol/L Chloride 103 (98-110) mmol/L Carbon Dioxide 28 (21-31) mmol/L BUN 16 (6.0-23.0) mg/dL Creatinine 1.2 (0.6-1.5) mg/dL Est Cr Clr Drug Dosing 27.27 mL/min Estimated GFR (MDRD) 43.0 ml/min Glucose 129 H (60-110) mg/dL Calcium 8.6 L (8.8-10.8) mg/dL Blood Type O POSITIVE Antibody Screen NEGATIVE 07/04/17 07/04/17 Range/Units 05:01 05:01 WBC (4.0-11.0) K/uL RBC (4.30-5.90) M/uL Hgb 11.9 L (12.0-16.0) g/dL Hct 36.1 (36.0-46.0) % MCV (80.0-98.0) fL MCH (27.0-32.0) pg MCHC (31.0-37.0) g/dL RDW Std Deviation (28.0-62.0) fl RDW Coeff of Julissa (11.0-15.0) % Plt Count (150-400) K/uL MPV (7.40-12.00) fL Neut % (Auto) (48.0-80.0) % Lymph % (Auto) (16.0-40.0) % Long % (Auto) (0.0-15.0) % Eos % (Auto) (0.0-7.0) % Baso % (Auto) (0.0-1.5) % Neut # (Auto) (1.4-5.7) K/uL Lymph # (Auto) (0.6-2.4) K/uL Long # (Auto) (0.0-0.8) K/uL Eos # (Auto) (0.0-0.7) K/uL Baso # (Auto) (0.0-0.1) K/uL Nucleated RBC % /100WBC Nucleated RBCs # K/uL Sodium 137 (136-146) mmol/L Potassium 4.8 (3.5-5.1) mmol/L Chloride 102 (98-110) mmol/L Carbon Dioxide 27 (21-31) mmol/L BUN 21 (6.0-23.0) mg/dL Creatinine 1.7 H (0.6-1.5) mg/dL Est Cr Clr Drug Dosing 19.25 mL/min Estimated GFR (MDRD) 28.8 ml/min Glucose 116 H (60-110) mg/dL Calcium 8.5 L (8.8-10.8) mg/dL Blood Type Antibody Screen Med Orders - Current: Current Medications Hydrocodone Bitart/Acetaminophen ([place] 325-10 Mg) 1 - 2 tab PO Q4H PRN PRN Reason: Pain Last Admin: 07/04/17 02:36 Dose: 1 tab Amitriptyline HCl (Elavil) 5 mg PO BEDTIME [facility] Last Admin: 07/03/17 20:57 Dose: 5 mg Atorvastatin Calcium (Lipitor) 40 mg PO BEDTIME [facility] Last Admin: 07/03/17 20:57 Dose: 40 mg Calcium Carbonate/Glycine (Tums) 600 mg PO DAILY [facility] Last Admin: 07/04/17 08:10 Dose: 600 mg Cholecalciferol (Vitamin D3) 1,000 units PO DAILY [facility] Last Admin: 07/04/17 08:10 Dose: 1,000 units Diphenhydramine HCl (Benadryl) 25 - 50 mg PO Q6H PRN PRN Reason: Itching Dipyridamole/Aspirin (Aggrenox 200-25 Mg) 1 cap PO BIDMEALS [facility] Last Admin: 07/04/17 09:21 Dose: 1 cap Docusate Sodium (Colace) 100 mg PO BID [facility] Last Admin: 07/04/17 08:09 Dose: 100 mg Hydromorphone HCl (Dilaudid) 0.5 - 1 mg IVPUSH Q3H PRN PRN Reason: Pain Sodium Chloride (Normal Saline) 500 mls @ 175 mls/hr IV ASDIRECTED [facility] Stop: 07/04/17 11:37 Last Admin: 07/04/17 09:23 Dose: 175 mls/hr Metoprolol Tartrate (Lopressor) 25 mg PO BIDMEALS [facility] Last Admin: 07/03/17 18:20 Dose: 25 mg Multivitamins/Minerals/Vitamin C (Tab-A-Tone) 1 tab PO DAILY [facility] Last Admin: 07/04/17 08:09 Dose: 1 tab Ondansetron HCl (Zofran) 4 mg IVPUSH Q6H PRN PRN Reason: Nausea/Vomiting Cyclosporine [ Restasis Multidose] 1 Drop 1 each EYEBOTH DAILY [facility] Last Admin: 07/04/17 10:02 Dose: Not Given Vitamin B Complex 1 (Tab) 1 each PO DAILY [facility] Last Admin: 07/04/17 10:02 Dose: Not Given Discontinued Medications Acetaminophen (Tylenol Extra Strength) 1,000 mg PO Q6H [facility] Last Admin: 07/04/17 02:33 Dose: Not Given Acetaminophen (Tylenol Extra Strength) 1,000 mg PO Q6H [facility] Last Admin: 07/04/17 05:17 Dose: 1,000 mg Aspirin (Ecotrin) 325 mg PO BID [facility] Cefazolin Sodium (Ancef) Confirm Administered Dose 1 gm .ROUTE .STK-MED ONE Stop: 07/03/17 09:37 Diphenhydramine HCl (Benadryl) Confirm Administered Dose 50 mg .ROUTE .STK-MED ONE Stop: 07/03/17 09:36 Ephedrine Sulfate (Ephedrine Sulfate) Confirm Administered Dose 50 mg .ROUTE .STK-MED ONE Stop: 07/03/17 12:18 Famotidine (Pepcid) 40 mg IVPUSH ONARRIVE [facility] Stop: 07/03/17 14:01 Fentanyl (Sublimaze) Confirm Administered Dose 100 mcg .ROUTE .STK-MED ONE Stop: 07/03/17 09:36 Acetaminophen 1,000 mg/ Premix 100 mls @ 400 mls/hr IV ONARRIVE [facility] Stop: 07/03/17 14:01 Cefazolin Sodium/Dextrose 1 gm (/ Premix) 50 mls @ 100 mls/hr IV ONCALL [facility] Stop: 07/03/17 14:01 Ropivacaine 49.25 ml/Ketorolac Tromethamine 30 mg/Epinephrine HCl 0.5 mg/ Clonidine HCl 80 mcg/ Sodium Chloride 100 mls @ 50 mls/hr INJECT SEECOMMENT ONE Stop: 07/03/17 09:59 Lactated Ringer's (Ringers, Lactated) 1,000 mls @ 100 mls/hr IV ASDIRECTED [facility] Tranexamic Acid 4,000 mg/ (Sodium Chloride) 140 mls @ 600 mls/hr IV ASDIRECTED [facility] Stop: 07/03/17 14:01 Acetaminophen 1,000 mg/ Premix 100 mls @ 400 mls/hr IV Q6H [facility] Stop: 07/03/17 20:00 Last Admin: 07/03/17 19:38 Dose: Not Given Cefazolin Sodium/Dextrose 1 gm (/ Premix) 50 mls @ 100 mls/hr IV Q8H [facility] Stop: 07/04/17 02:00 Last Admin: 07/04/17 02:28 Dose: 100 mls/hr Acetaminophen 1,000 mg/ Premix 100 mls @ 400 mls/hr IV Q6H [facility] Stop: 07/03/17 23:30 Last Admin: 07/03/17 22:56 Dose: 400 mls/hr Cefazolin Sodium/Dextrose (Ancef) Confirm Administered Dose 50 mls @ as directed .ROUTE .STK-MED ONE Stop: 07/03/17 09:36 Acetaminophen (Ofirmev) Confirm Administered Dose 100 mls @ as directed IV .STK- MED ONE Stop: 07/03/17 17:30 Ketorolac Tromethamine (Toradol) 15 mg IVPUSH ONARRIVE [facility] Stop: 07/03/17 14:01 Ketorolac Tromethamine (Toradol) 15 mg IVPUSH Q6H [facility] Stop: 07/04/17 04:00 Last Admin: 07/03/17 19:38 Dose: Not Given Lisinopril (Prinivil) 10 mg PO DAILY [facility] Midazolam HCl (Versed 1 Mg/Ml) Confirm Administered Dose 2 mg .ROUTE .STK-MED ONE Stop: 07/03/17 09:36 Ondansetron HCl (Zofran) Confirm Administered Dose 4 mg .ROUTE .STK-MED ONE Stop: 07/03/17 09:36 Oxycodone HCl (Oxycontin) 10 mg PO ONARRIVE [facility] Stop: 07/03/17 14:01 Oxycodone HCl (Oxycontin) 10 mg PO Q12HR [facility] Oxycodone HCl (Oxycodone) 5 - 10 mg PO Q4H PRN PRN Reason: Pain Oxycodone HCl (Oxycontin) Confirm Administered Dose 10 mg .ROUTE .STK-MED ONE Stop: 07/03/17 17:25 Propofol (Diprivan 20 Ml) Confirm Administered Dose 400 mg .ROUTE .STK-MED ONE Stop: 07/03/17 09:36 Scopolamine (Transderm-Scop) 1.5 mg TRDERM ONARRIVE [facility] Tranexamic Acid (Cyklokapron) Confirm Administered Dose 4,000 mg .ROUTE .STK- MED ONE Stop: 07/03/17 07:22 - Exam General: Alert, Cooperative, No Acute Distress. No: Oriented (slight confusion noted, needed to be redirected. Knew she was in the hospital, but unsure why.) Neck: Supple Lungs: Clear to Auscultation, Normal Respiratory Effort Cardiovascular: Regular Rate, Regular Rhythm, Murmurs GI/Abdominal Exam: Normal Bowel Sounds, Soft, Non-Tender, No Organomegaly, No Distention, No Abnormal Bruit, No Mass, Pelvis Stable Extremities: Normal Inspection, Pedal Edema (scant to operative leg) Wound/Incisions: Dressing Dry and Intact Psy/Mental Status: Alert, Normal Affect, Normal Mood Consult PN Assessment/Plan Procedures: Procedures ASSAY OF CK (CPK) (12/29/13) ASSAY OF FOLIC ACID SERUM (07/04/16) ASSAY OF FREE THYROXINE (09/21/14) ASSAY THYROID STIM HORMONE (09/21/14) CHEST X-RAY 2VW FRONTAL&LATL (05/10/17) COMPLETE CBC AUTOMATED (06/30/16) COMPLETE CBC W/AUTO DIFF WBC (06/25/17) COMPREHEN METABOLIC PANEL (01/23/17) DRAIN/INJ JOINT/BURSA W/O US (12/09/15) ELECTROCARDIOGRAM TRACING (05/10/17) GLYCOSYLATED HEMOGLOBIN TEST (05/10/17) IIV4 VACC NO PRSV 0.5 ML IM (05/10/16) LIPID PANEL (04/04/17) LOWER EXTREMITY STUDY (04/22/15) METABOLIC PANEL TOTAL CA (06/25/17) MICROBE SUSCEPTIBLE MAI (10/27/16) MRI JNT OF LWR EXTRE W/O DYE (04/26/17) OFFICE/OUTPATIENT VISIT EST (05/10/17) OFFICE/OUTPATIENT VISIT EST (04/10/17) OFFICE/OUTPATIENT VISIT EST (05/10/16) OFFICE/OUTPATIENT VISIT EST (08/31/15) OFFICE/OUTPATIENT VISIT EST (02/23/14) PCV13 VACCINE IM (05/10/16) PROTEIN E-PHORESIS SERUM (04/09/15) PROTHROMBIN TIME (05/10/17) ROUTINE VENIPUNCTURE (06/25/17) TRANSFERASE (AST) (SGOT) (12/29/13) TTE W/DOPPLER COMPLETE (06/01/17) URINALYSIS AUTO W/SCOPE (05/11/17) URINE BACTERIA CULTURE (10/27/16) URINE CULTURE/COLONY COUNT (02/21/17) VITAMIN B-12 (07/04/16) X-RAY EXAM OF KNEE 1 OR 2 (05/04/15) X-RAY EXAM OF KNEE 3 (04/09/15) (1) S/P total knee arthroplasty SNOMED Code(s): 5372522890423, 6232937387295 Code(s): Z96.659 - PRESENCE OF UNSPECIFIED ARTIFICIAL KNEE JOINT Current Visit: Yes Qualifiers: Laterality: left Qualified Code(s): Z96.652 - Presence of left artificial knee joint (2) HTN (hypertension) SNOMED Code(s): 17740035 Code(s): I10 - ESSENTIAL (PRIMARY) HYPERTENSION Current Visit: Yes Qualifiers: Hypertension type: essential hypertension Qualified Code(s): I10 - Essential (primary) hypertension (3) History of CVA with residual deficit SNOMED Code(s): 639942125 Code(s): I69.30 - UNSPECIFIED SEQUELAE OF CEREBRAL INFARCTION Current Visit : Yes (4) Hx of aortic valve replacement SNOMED Code(s): 8668254308576, 4715269208604 Code(s): Z95.2 - PRESENCE OF PROSTHETIC HEART VALVE Current Visit: Yes (5) Hx of CABG SNOMED Code(s): 173917170 Code(s): Z95.1 - PRESENCE OF AORTOCORONARY BYPASS GRAFT Current Visit: Yes (6) Pulmonary HTN SNOMED Code(s): 48707990 Code(s): I27.20 - PULMONARY HYPERTENSION, UNSPECIFIED Current Visit: Yes (7) Diastolic dysfunction SNOMED Code(s): 0123585 Code(s): I51.9 - HEART DISEASE, UNSPECIFIED Current Visit: Yes Problem List Initiated/Reviewed/Updated: Yes My Orders Last 24 Hours: My Active Orders 07/03/17 17:00 Metoprolol Tartrate [Lopressor] 25 mg PO BIDMEALS 07/03/17 21:00 Amitriptyline [Elavil] 5 mg PO BEDTIME atorvaSTATin [Lipitor] 40 mg PO BEDTIME 07/04/17 08:45 Sodium Chloride 0.9% [Normal Saline] 500 ml IV ASDIRECTED 07/04/17 09:00 Aspirin/Dipyridamole [Aggrenox 200-25 MG] 1 cap PO BIDMEALS Calcium Carbonate [Tums] 600 mg PO DAILY Cholecalciferol (Vitamin D3) [Vitamin D3] 1,000 units PO DAILY Multivitamins [Tab-A-Tone] 1 tab PO DAILY Patient's Own Medication [Ptom] 1 each EYEBOTH DAILY Patient's Own Medication [Ptom] 1 each PO DAILY Plan: This 82 year old female admitted for L TKA Hospitalist service consulted for medical comorbidities 1. S/P L TKA: orders per Dr. Antonio 2. Hx AVR: Continue Aggrenox BID 3. HTN: Stable. Continue Metoprolol. Holding Lisinopril due to elevated Cr this am. 4. CAD, HX CABG: Stable, continue Atorvastatin. 5. Hx diastolic dysfunction, moderate pulmonary HTN: Will stop LR now, patient obtained 2 L LR in OR. appears euvolemic, would recommend small boluses if hydration needed. 6. Elevated Cr; 1.7 today, did receive 1 dose of Toradol yesterday pre- operative. May be a little dry this morning, urine output at 400 overnight. Will given 500 ml NS bolus this am and monitor. Otherwise may follow with PCP, Lisinopril held as well. VTE prophylaxis: Aggrenox BID.
[2017-07-04] MEDS: atorvaSTATin 40 MG Tab PO SCH (20:59)
[2017-07-04] MEDS: Amitriptyline 10 MG Tab PO SCH (20:59)
[2017-07-05] MEDS: Acetaminophen 500 MG Tab PO SCH ×3 (06:24→16:49)
[2017-07-05] MEDS: Multivitamin Tab PO SCH (08:38)
[2017-07-05] MEDS: Aspirin/Dipyridamole 200-25 MG Cap.ER PO SCH ×2 (08:38→16:49)
[2017-07-05] MEDS: Cholecalciferol (Vitamin D3) 1,000 Unit Tab PO SCH (08:38)
[2017-07-05] MEDS: Docusate Sodium 100 MG Cap PO SCH (08:38)
[2017-07-05] MEDS: Cyclosporine [Restasis Multidose] 1 DROP EYEBOTH SCH (08:39)
[2017-07-05] MEDS: Vitamin B Complex 1 TAB PO SCH (08:39)
[2017-07-05] MEDS: Metoprolol Tartrate 25 MG Tab PO SCH ×2 (08:57→16:50)
[2017-07-05] MEDS ORDERED: Calcium Carbonate 500 MG Tab.Chew PO SCH (09:00)
[2017-07-05] MEDS ORDERED: Lisinopril 10 MG Tab PO SCH (09:00)
--- NOTE | 2017-07-05 09:13 | PCM.SURGPN ---
<Jamee Smith R - Last Filed: 07/05/17 09:14> - General Info Date of Service: 07/05/17 Date of Surgery/Procedure: 07/03/17 POD#: 2 Functional Status: Reports: Pain Controlled, Tolerating Diet, Ambulating, Urinating - Review of Systems General: Reports: No Symptoms Psychiatric: Reports: Confusion Systems Review Comment:: pt up to chair states L knee is painful, but feels her pain is controlled with current pain medications minimized narcotic use, tylenol only for pain contrl still pleasantly confused no specific concerns today - Patient Data Vitals - Most Recent: Last Vital Signs Temp 97.7 F 07/05/17 08:00 Pulse 70 07/05/17 08:57 Resp 20 07/05/17 08:00 BP 129/61 07/05/17 08:57 Pulse Ox 95 07/05/17 08:00 Weight - Most Recent: 60.328 kg I&O - Last 24 Hours: Intake & Output 07/04/17 07/05/17 07/05/17 22:59 06:59 14:59 Intake Total 150 Output Total 350 Balance -200 Lab Results Last 24 Hrs: Laboratory Results - last 24 hr 07/05/17 07/05/17 Range/Units 05:55 05:55 Hgb 11.3 L (12.0-16.0) g/dL Hct 33.8 L (36.0-46.0) % Sodium 124 L (136-146) mmol/L Potassium 4.2 (3.5-5.1) mmol/L Chloride 93 L (98-110) mmol/L Carbon Dioxide 23 (21-31) mmol/L BUN 22 (6.0-23.0) mg/dL Creatinine 1.3 (0.6-1.5) mg/dL Est Cr Clr Drug Dosing 25.18 mL/min Estimated GFR (MDRD) 39.2 ml/min Glucose 143 H (60-110) mg/dL Calcium 7.8 L (8.8-10.8) mg/dL Med Orders - Current: Current Medications Acetaminophen (Tylenol Extra Strength) 1,000 mg PO Q6H [facility] Last Admin: 07/05/17 06:24 Dose: 1,000 mg Amitriptyline HCl (Elavil) 5 mg PO BEDTIME [facility] Last Admin: 07/04/17 20:59 Dose: 5 mg Atorvastatin Calcium (Lipitor) 40 mg PO BEDTIME [facility] Last Admin: 07/04/17 20:59 Dose: 40 mg Calcium Carbonate/Glycine (Tums) 500 mg PO DAILY [facility] Last Admin: 07/05/17 08:42 Dose: 500 mg Cholecalciferol (Vitamin D3) 1,000 units PO DAILY [facility] Last Admin: 07/05/17 08:38 Dose: 1,000 units Diphenhydramine HCl (Benadryl) 25 - 50 mg PO Q6H PRN PRN Reason: Itching Dipyridamole/Aspirin (Aggrenox 200-25 Mg) 1 cap PO BIDMEALS [facility] Last Admin: 07/05/17 08:38 Dose: 1 cap Docusate Sodium (Colace) 100 mg PO BID [facility] Last Admin: 07/05/17 08:38 Dose: 100 mg Hydromorphone HCl (Dilaudid) 0.5 - 1 mg IVPUSH Q3H PRN PRN Reason: Pain Lisinopril (Prinivil) 10 mg PO DAILY [facility] Last Admin: 07/05/17 08:57 Dose: 10 mg Metoprolol Tartrate (Lopressor) 25 mg PO BIDMEALS [facility] Last Admin: 07/05/17 08:57 Dose: 25 mg Multivitamins/Minerals/Vitamin C (Tab-A-Tone) 1 tab PO DAILY [facility] Last Admin: 07/05/17 08:38 Dose: 1 tab Ondansetron HCl (Zofran) 4 mg IVPUSH Q6H PRN PRN Reason: Nausea/Vomiting Last Admin: 07/04/17 22:45 Dose: 4 mg Cyclosporine [ Restasis Multidose] 1 Drop 1 each EYEBOTH DAILY [facility] Last Admin: 07/05/17 08:39 Dose: Not Given Vitamin B Complex 1 (Tab) 1 each PO DAILY [facility] Last Admin: 07/05/17 08:39 Dose: Not Given Discontinued Medications Acetaminophen (Tylenol Extra Strength) 1,000 mg PO Q6H [facility] Last Admin: 07/04/17 02:33 Dose: Not Given Acetaminophen (Tylenol Extra Strength) 1,000 mg PO Q6H [facility] Last Admin: 07/04/17 05:17 Dose: 1,000 mg Hydrocodone Bitart/Acetaminophen ([place] 325-10 Mg) 1 - 2 tab PO Q4H PRN PRN Reason: Pain Last Admin: 07/04/17 02:36 Dose: 1 tab Aspirin (Ecotrin) 325 mg PO BID [facility] Calcium Carbonate/Glycine (Tums) 600 mg PO DAILY [facility] Last Admin: 07/04/17 08:10 Dose: 600 mg Cefazolin Sodium (Ancef) Confirm Administered Dose 1 gm .ROUTE .STK-MED ONE Stop: 07/03/17 09:37 Diphenhydramine HCl (Benadryl) Confirm Administered Dose 50 mg .ROUTE .STK-MED ONE Stop: 07/03/17 09:36 Ephedrine Sulfate (Ephedrine Sulfate) Confirm Administered Dose 50 mg .ROUTE .STK-MED ONE Stop: 07/03/17 12:18 Famotidine (Pepcid) 40 mg IVPUSH ONARRIVE [facility] Stop: 07/03/17 14:01 Fentanyl (Sublimaze) Confirm Administered Dose 100 mcg .ROUTE .STK-MED ONE Stop: 07/03/17 09:36 Acetaminophen 1,000 mg/ Premix 100 mls @ 400 mls/hr IV ONARRIVE [facility] Stop: 07/03/17 14:01 Cefazolin Sodium/Dextrose 1 gm (/ Premix) 50 mls @ 100 mls/hr IV ONCALL [facility] Stop: 07/03/17 14:01 Ropivacaine 49.25 ml/Ketorolac Tromethamine 30 mg/Epinephrine HCl 0.5 mg/ Clonidine HCl 80 mcg/ Sodium Chloride 100 mls @ 50 mls/hr INJECT SEECOMMENT ONE Stop: 07/03/17 09:59 Lactated Ringer's (Ringers, Lactated) 1,000 mls @ 100 mls/hr IV ASDIRECTED [facility] Tranexamic Acid 4,000 mg/ (Sodium Chloride) 140 mls @ 600 mls/hr IV ASDIRECTED [facility] Stop: 07/03/17 14:01 Acetaminophen 1,000 mg/ Premix 100 mls @ 400 mls/hr IV Q6H [facility] Stop: 07/03/17 20:00 Last Admin: 07/03/17 19:38 Dose: Not Given Cefazolin Sodium/Dextrose 1 gm (/ Premix) 50 mls @ 100 mls/hr IV Q8H [facility] Stop: 07/04/17 02:00 Last Admin: 07/04/17 02:28 Dose: 100 mls/hr Acetaminophen 1,000 mg/ Premix 100 mls @ 400 mls/hr IV Q6H [facility] Stop: 07/03/17 23:30 Last Admin: 07/03/17 22:56 Dose: 400 mls/hr Cefazolin Sodium/Dextrose (Ancef) Confirm Administered Dose 50 mls @ as directed .ROUTE .STK-MED ONE Stop: 07/03/17 09:36 Acetaminophen (Ofirmev) Confirm Administered Dose 100 mls @ as directed IV .STK- MED ONE Stop: 07/03/17 17:30 Sodium Chloride (Normal Saline) 500 mls @ 175 mls/hr IV ASDIRECTED [facility] Stop: 07/04/17 11:37 Last Admin: 07/04/17 09:23 Dose: 175 mls/hr Sodium Chloride (Normal Saline) 500 mls @ 175 mls/hr IV ASDIRECTED [facility] Stop: 07/04/17 19:07 Last Admin: 07/04/17 16:29 Dose: 175 mls/hr Ketorolac Tromethamine (Toradol) 15 mg IVPUSH ONARRIVE [facility] Stop: 07/03/17 14:01 Ketorolac Tromethamine (Toradol) 15 mg IVPUSH Q6H [facility] Stop: 07/04/17 04:00 Last Admin: 07/03/17 19:38 Dose: Not Given Lisinopril (Prinivil) 10 mg PO DAILY [facility] Midazolam HCl (Versed 1 Mg/Ml) Confirm Administered Dose 2 mg .ROUTE .STK-MED ONE Stop: 07/03/17 09:36 Ondansetron HCl (Zofran) Confirm Administered Dose 4 mg .ROUTE .STK-MED ONE Stop: 07/03/17 09:36 Oxycodone HCl (Oxycontin) 10 mg PO ONARRIVE [facility] Stop: 07/03/17 14:01 Oxycodone HCl (Oxycontin) 10 mg PO Q12HR [facility] Oxycodone HCl (Oxycodone) 5 - 10 mg PO Q4H PRN PRN Reason: Pain Oxycodone HCl (Oxycontin) Confirm Administered Dose 10 mg .ROUTE .STK-MED ONE Stop: 07/03/17 17:25 Propofol (Diprivan 20 Ml) Confirm Administered Dose 400 mg .ROUTE .STK-MED ONE Stop: 07/03/17 09:36 Scopolamine (Transderm-Scop) 1.5 mg TRDERM ONARRIVE [facility] Tranexamic Acid (Cyklokapron) Confirm Administered Dose 4,000 mg .ROUTE .STK- MED ONE Stop: 07/03/17 07:22 - Exam Wound/Incisions: Drainage (serosanguinous drainage from incision site). No: Erythema General: Alert, Oriented Cardiovascular: Regular Rate, Regular Rhythm Extremities: Other (LLE - at/ehl/gastroc 5/5, dp 2+, sensation intact distally) Physical Findings Comment:: vss, afeb hgb 11.3 - Problem List Review Problem List Initiated/Reviewed/Updated: Yes - My Orders Last 24 Hours: Active Orders 24 hr Category Date Time Status Insert Urinary Catheter [OM.PC] Q24H Care 07/05/17 08:00 Ordered Remove Lam Catheter [Urinary Catheter Removal] [RC] Care 07/04/17 09:06 Active Per Unit Routine HEMOGLOBIN/HEMATOCRIT,HH [HEME] DAILY Lab 07/06/17 05:00 Ordered Acetaminophen [Tylenol Extra Strength] Med 07/04/17 11:30 Active 1,000 mg PO Q6H Aspirin/Dipyridamole [Aggrenox 200-25 MG] Med 07/04/17 09:00 Active 1 cap PO BIDMEALS Calcium Carbonate [Tums] Med 07/05/17 09:00 Active 500 mg PO DAILY Cholecalciferol (Vitamin D3) [Vitamin D3] Med 07/04/17 09:00 Active 1,000 units PO DAILY Lisinopril [Prinivil] Med 07/05/17 09:00 Active 10 mg PO DAILY Multivitamins [Tab-A-Tone] Med 07/04/17 09:00 Active 1 tab PO DAILY Patient's Own Medication [Ptom] Med 07/04/17 09:00 Active 1 each EYEBOTH DAILY Patient's Own Medication [Ptom] Med 07/04/17 09:00 Active 1 each PO DAILY Medication Orders Acetaminophen (Tylenol Extra Strength) 1,000 mg PO Q6H [facility] Last Admin: 07/05/17 06:24 Dose: 1,000 mg Admin: 07/04/17 22:53 Dose: 1,000 mg Admin: 07/04/17 16:30 Dose: 1,000 mg Admin: 07/04/17 11:38 Dose: 1,000 mg Amitriptyline HCl (Elavil) 5 mg PO BEDTIME [facility] Last Admin: 07/04/17 20:59 Dose: 5 mg Admin: 07/03/17 20:57 Dose: 5 mg Atorvastatin Calcium (Lipitor) 40 mg PO BEDTIME [facility] Last Admin: 07/04/17 20:59 Dose: 40 mg Admin: 07/03/17 20:57 Dose: 40 mg Calcium Carbonate/Glycine (Tums) 500 mg PO DAILY [facility] Last Admin: 07/05/17 08:42 Dose: 500 mg Cholecalciferol (Vitamin D3) 1,000 units PO DAILY [facility] Last Admin: 07/05/17 08:38 Dose: 1,000 units Admin: 07/04/17 08:10 Dose: 1,000 units Diphenhydramine HCl (Benadryl) 25 - 50 mg PO Q6H PRN PRN Reason: Itching Dipyridamole/Aspirin (Aggrenox 200-25 Mg) 1 cap PO BIDMEALS [facility] Last Admin: 07/05/17 08:38 Dose: 1 cap Admin: 07/04/17 16:31 Dose: 1 cap Admin: 07/04/17 09:21 Dose: 1 cap Docusate Sodium (Colace) 100 mg PO BID [facility] Last Admin: 07/05/17 08:38 Dose: 100 mg Admin: 07/04/17 20:59 Dose: 100 mg Admin: 07/04/17 08:09 Dose: 100 mg Admin: 07/03/17 20:57 Dose: 100 mg Hydromorphone HCl (Dilaudid) 0.5 - 1 mg IVPUSH Q3H PRN PRN Reason: Pain Lisinopril (Prinivil) 10 mg PO DAILY [facility] Last Admin: 07/05/17 08:57 Dose: 10 mg Metoprolol Tartrate (Lopressor) 25 mg PO BIDMEALS [facility] Last Admin: 07/05/17 08:57 Dose: 25 mg Admin: 07/04/17 16:32 Dose: Not Given Admin: 07/04/17 09:00 Dose: Not Given Admin: 07/03/17 18:20 Dose: 25 mg Multivitamins/Minerals/Vitamin C (Tab-A-Tone) 1 tab PO DAILY [facility] Last Admin: 07/05/17 08:38 Dose: 1 tab Admin: 07/04/17 08:09 Dose: 1 tab Ondansetron HCl (Zofran) 4 mg IVPUSH Q6H PRN PRN Reason: Nausea/Vomiting Last Admin: 07/04/17 22:45 Dose: 4 mg Cyclosporine [ Restasis Multidose] 1 Drop 1 each EYEBOTH DAILY [facility] Last Admin: 07/05/17 08:39 Dose: Admin: 07/04/17 10:02 Dose: Vitamin B Complex 1 (Tab) 1 each PO DAILY [facility] Last Admin: 07/05/17 08:39 Dose: Admin: 07/04/17 10:02 Dose: - Assessment Assessment (Free Text/Narrative):: POD#2 L TKA acute posthemorrhagic anemia - Plan Plan (Free Text/Narrative):: d/ch to home today dressing changed to Aquacel dressing see home meds - tylenol and colace only rx for walker on chart d/ch summary #[id number] <Elly Antonio R - Last Filed: 07/05/17 10:52> - Patient Data Vitals - Most Recent: Last Vital Signs Temp 97.7 F 07/05/17 08:00 Pulse 70 07/05/17 08:57 Resp 20 07/05/17 08:00 BP 129/61 07/05/17 08:57 Pulse Ox 95 07/05/17 08:00 I&O - Last 24 Hours: Intake & Output 07/04/17 07/05/17 07/05/17 22:59 06:59 14:59 Intake Total 150 Output Total 350 Balance -200 Lab Results Last 24 Hrs: Laboratory Results - last 24 hr 07/05/17 07/05/17 07/05/17 Range/Units 05:55 05:55 10:08 Hgb 11.3 L (12.0-16.0) g/dL Hct 33.8 L (36.0-46.0) % Sodium 124 L 125 L (136-146) mmol/L Potassium 4.2 4.6 (3.5-5.1) mmol/L Chloride 93 L 95 L (98-110) mmol/L Carbon Dioxide 23 22 (21-31) mmol/L BUN 22 21 (6.0-23.0) mg/dL Creatinine 1.3 1.2 (0.6-1.5) mg/dL Est Cr Clr Drug Dosing 25.18 27.27 mL/min Estimated GFR (MDRD) 39.2 43.0 ml/min Glucose 143 H 121 H (60-110) mg/dL Calcium 7.8 L 7.9 L (8.8-10.8) mg/dL Med Orders - Current: Current Medications Acetaminophen (Tylenol Extra Strength) 1,000 mg PO Q6H [facility] Last Admin: 07/05/17 06:24 Dose: 1,000 mg Amitriptyline HCl (Elavil) 5 mg PO BEDTIME [facility] Last Admin: 07/04/17 20:59 Dose: 5 mg Atorvastatin Calcium (Lipitor) 40 mg PO BEDTIME [facility] Last Admin: 07/04/17 20:59 Dose: 40 mg Calcium Carbonate/Glycine (Tums) 500 mg PO DAILY [facility] Last Admin: 07/05/17 08:42 Dose: 500 mg Cholecalciferol (Vitamin D3) 1,000 units PO DAILY [facility] Last Admin: 07/05/17 08:38 Dose: 1,000 units Diphenhydramine HCl (Benadryl) 25 - 50 mg PO Q6H PRN PRN Reason: Itching Dipyridamole/Aspirin (Aggrenox 200-25 Mg) 1 cap PO BIDMEALS [facility] Last Admin: 07/05/17 08:38 Dose: 1 cap Docusate Sodium (Colace) 100 mg PO BID [facility] Last Admin: 07/05/17 08:38 Dose: 100 mg Hydromorphone HCl (Dilaudid) 0.5 - 1 mg IVPUSH Q3H PRN PRN Reason: Pain Lisinopril (Prinivil) 10 mg PO DAILY [facility] Last Admin: 07/05/17 08:57 Dose: 10 mg Metoprolol Tartrate (Lopressor) 25 mg PO BIDMEALS [facility] Last Admin: 07/05/17 08:57 Dose: 25 mg Multivitamins/Minerals/Vitamin C (Tab-A-Tone) 1 tab PO DAILY [facility] Last Admin: 07/05/17 08:38 Dose: 1 tab Ondansetron HCl (Zofran) 4 mg IVPUSH Q6H PRN PRN Reason: Nausea/Vomiting Last Admin: 07/04/17 22:45 Dose: 4 mg Cyclosporine [ Restasis Multidose] 1 Drop 1 each EYEBOTH DAILY [facility] Last Admin: 07/05/17 08:39 Dose: Not Given Vitamin B Complex 1 (Tab) 1 each PO DAILY [facility] Last Admin: 07/05/17 08:39 Dose: Not Given Discontinued Medications Acetaminophen (Tylenol Extra Strength) 1,000 mg PO Q6H [facility] Last Admin: 07/04/17 02:33 Dose: Not Given Acetaminophen (Tylenol Extra Strength) 1,000 mg PO Q6H [facility] Last Admin: 07/04/17 05:17 Dose: 1,000 mg Hydrocodone Bitart/Acetaminophen ([place] 325-10 Mg) 1 - 2 tab PO Q4H PRN PRN Reason: Pain Last Admin: 07/04/17 02:36 Dose: 1 tab Aspirin (Ecotrin) 325 mg PO BID [facility] Calcium Carbonate/Glycine (Tums) 600 mg PO DAILY [facility] Last Admin: 07/04/17 08:10 Dose: 600 mg Cefazolin Sodium (Ancef) Confirm Administered Dose 1 gm .ROUTE .STK-MED ONE Stop: 07/03/17 09:37 Diphenhydramine HCl (Benadryl) Confirm Administered Dose 50 mg .ROUTE .STK-MED ONE Stop: 07/03/17 09:36 Ephedrine Sulfate (Ephedrine Sulfate) Confirm Administered Dose 50 mg .ROUTE .STK-MED ONE Stop: 07/03/17 12:18 Famotidine (Pepcid) 40 mg IVPUSH ONARRIVE [facility] Stop: 07/03/17 14:01 Fentanyl (Sublimaze) Confirm Administered Dose 100 mcg .ROUTE .STK-MED ONE Stop: 07/03/17 09:36 Acetaminophen 1,000 mg/ Premix 100 mls @ 400 mls/hr IV ONARRIVE [facility] Stop: 07/03/17 14:01 Cefazolin Sodium/Dextrose 1 gm (/ Premix) 50 mls @ 100 mls/hr IV ONCALL [facility] Stop: 07/03/17 14:01 Ropivacaine 49.25 ml/Ketorolac Tromethamine 30 mg/Epinephrine HCl 0.5 mg/ Clonidine HCl 80 mcg/ Sodium Chloride 100 mls @ 50 mls/hr INJECT SEECOMMENT ONE Stop: 07/03/17 09:59 Lactated Ringer's (Ringers, Lactated) 1,000 mls @ 100 mls/hr IV ASDIRECTED [facility] Tranexamic Acid 4,000 mg/ (Sodium Chloride) 140 mls @ 600 mls/hr IV ASDIRECTED [facility] Stop: 07/03/17 14:01 Acetaminophen 1,000 mg/ Premix 100 mls @ 400 mls/hr IV Q6H [facility] Stop: 07/03/17 20:00 Last Admin: 07/03/17 19:38 Dose: Not Given Cefazolin Sodium/Dextrose 1 gm (/ Premix) 50 mls @ 100 mls/hr IV Q8H [facility] Stop: 07/04/17 02:00 Last Admin: 07/04/17 02:28 Dose: 100 mls/hr Acetaminophen 1,000 mg/ Premix 100 mls @ 400 mls/hr IV Q6H [facility] Stop: 07/03/17 23:30 Last Admin: 07/03/17 22:56 Dose: 400 mls/hr Cefazolin Sodium/Dextrose (Ancef) Confirm Administered Dose 50 mls @ as directed .ROUTE .STK-MED ONE Stop: 07/03/17 09:36 Acetaminophen (Ofirmev) Confirm Administered Dose 100 mls @ as directed IV .STK- MED ONE Stop: 07/03/17 17:30 Sodium Chloride (Normal Saline) 500 mls @ 175 mls/hr IV ASDIRECTED [facility] Stop: 07/04/17 11:37 Last Admin: 07/04/17 09:23 Dose: 175 mls/hr Sodium Chloride (Normal Saline) 500 mls @ 175 mls/hr IV ASDIRECTED [facility] Stop: 07/04/17 19:07 Last Admin: 07/04/17 16:29 Dose: 175 mls/hr Ketorolac Tromethamine (Toradol) 15 mg IVPUSH ONARRIVE [facility] Stop: 07/03/17 14:01 Ketorolac Tromethamine (Toradol) 15 mg IVPUSH Q6H [facility] Stop: 07/04/17 04:00 Last Admin: 07/03/17 19:38 Dose: Not Given Lisinopril (Prinivil) 10 mg PO DAILY [facility] Midazolam HCl (Versed 1 Mg/Ml) Confirm Administered Dose 2 mg .ROUTE .STK-MED ONE Stop: 07/03/17 09:36 Ondansetron HCl (Zofran) Confirm Administered Dose 4 mg .ROUTE .STK-MED ONE Stop: 07/03/17 09:36 Oxycodone HCl (Oxycontin) 10 mg PO ONARRIVE [facility] Stop: 07/03/17 14:01 Oxycodone HCl (Oxycontin) 10 mg PO Q12HR [facility] Oxycodone HCl (Oxycodone) 5 - 10 mg PO Q4H PRN PRN Reason: Pain Oxycodone HCl (Oxycontin) Confirm Administered Dose 10 mg .ROUTE .STK-MED ONE Stop: 07/03/17 17:25 Propofol (Diprivan 20 Ml) Confirm Administered Dose 400 mg .ROUTE .STK-MED ONE Stop: 07/03/17 09:36 Scopolamine (Transderm-Scop) 1.5 mg TRDERM ONARRIVE [facility] Tranexamic Acid (Cyklokapron) Confirm Administered Dose 4,000 mg .ROUTE .STK- MED ONE Stop: 07/03/17 07:22 - My Orders Last 24 Hours: Active Orders 24 hr Category Date Time Status Insert Urinary Catheter [OM.PC] Q24H Care 07/05/17 08:00 Ordered Ready for Discharge [RC] PER UNIT ROUTINE Care 07/05/17 09:16 Active HEMOGLOBIN/HEMATOCRIT,HH [HEME] DAILY Lab 07/06/17 05:00 Ordered Acetaminophen [Tylenol Extra Strength] Med 07/04/17 11:30 Active 1,000 mg PO Q6H Calcium Carbonate [Tums] Med 07/05/17 09:00 Active 500 mg PO DAILY Lisinopril [Prinivil] Med 07/05/17 09:00 Active 10 mg PO DAILY Medication Orders Acetaminophen (Tylenol Extra Strength) 1,000 mg PO Q6H [facility] Last Admin: 07/05/17 06:24 Dose: 1,000 mg Admin: 07/04/17 22:53 Dose: 1,000 mg Admin: 07/04/17 16:30 Dose: 1,000 mg Admin: 07/04/17 11:38 Dose: 1,000 mg Amitriptyline HCl (Elavil) 5 mg PO BEDTIME [facility] Last Admin: 07/04/17 20:59 Dose: 5 mg Admin: 07/03/17 20:57 Dose: 5 mg Atorvastatin Calcium (Lipitor) 40 mg PO BEDTIME [facility] Last Admin: 07/04/17 20:59 Dose: 40 mg Admin: 07/03/17 20:57 Dose: 40 mg Calcium Carbonate/Glycine (Tums) 500 mg PO DAILY [facility] Last Admin: 07/05/17 08:42 Dose: 500 mg Cholecalciferol (Vitamin D3) 1,000 units PO DAILY [facility] Last Admin: 07/05/17 08:38 Dose: 1,000 units Admin: 07/04/17 08:10 Dose: 1,000 units Diphenhydramine HCl (Benadryl) 25 - 50 mg PO Q6H PRN PRN Reason: Itching Dipyridamole/Aspirin (Aggrenox 200-25 Mg) 1 cap PO BIDMEALS [facility] Last Admin: 07/05/17 08:38 Dose: 1 cap Admin: 07/04/17 16:31 Dose: 1 cap Admin: 07/04/17 09:21 Dose: 1 cap Docusate Sodium (Colace) 100 mg PO BID [facility] Last Admin: 07/05/17 08:38 Dose: 100 mg Admin: 07/04/17 20:59 Dose: 100 mg Admin: 07/04/17 08:09 Dose: 100 mg Admin: 07/03/17 20:57 Dose: 100 mg Hydromorphone HCl (Dilaudid) 0.5 - 1 mg IVPUSH Q3H PRN PRN Reason: Pain Lisinopril (Prinivil) 10 mg PO DAILY [facility] Last Admin: 07/05/17 08:57 Dose: 10 mg Metoprolol Tartrate (Lopressor) 25 mg PO BIDMEALS [facility] Last Admin: 07/05/17 08:57 Dose: 25 mg Admin: 07/04/17 16:32 Dose: Not Given Admin: 07/04/17 09:00 Dose: Not Given Admin: 07/03/17 18:20 Dose: 25 mg Multivitamins/Minerals/Vitamin C (Tab-A-Tone) 1 tab PO DAILY [facility] Last Admin: 07/05/17 08:38 Dose: 1 tab Admin: 07/04/17 08:09 Dose: 1 tab Ondansetron HCl (Zofran) 4 mg IVPUSH Q6H PRN PRN Reason: Nausea/Vomiting Last Admin: 07/04/17 22:45 Dose: 4 mg Cyclosporine [ Restasis Multidose] 1 Drop 1 each EYEBOTH DAILY [facility] Last Admin: 07/05/17 08:39 Dose: Admin: 12/20/17 10:02 Dose: Vitamin B Complex 1 (Tab) 1 each PO DAILY [facility] Last Admin: 07/05/17 08:39 Dose: Admin: 07/04/17 10:02 Dose: - Plan Plan (Free Text/Narrative):: 1030 Patient seen and examined. Agree with above. Patient has been up walking with PT --doing well. Pain controlled with po tylenol. Mild confusion from yesterday better. Hgb stable. Hyponatremia noted today--hospitalist is following. VSS, afeb Dressing dry/intact. NVI. POD #2 1. continue PT 2. tylenol prn for pain 3. possible discharge later today--per hospitalist discretion 4. consider HH for discharge--social service to evaluate
--- NOTE | 2017-07-05 10:06 | PCM.CONSN ---
- General Info Date of Service: 07/05/17 Admission Dx/Problem (Free Text): Admission Diagnosis/Problem Admission Diagnosis/Problem Replacement of total knee joint Subjective Update: Pleasantly confused today, but is alert and oriented x 3. No chest pain or SOB. L knee pain continues, but tylenol helps. 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 Functional Status: Reports: Pain Controlled, Tolerating Diet, Ambulating, Urinating - Review of Systems HEENT: Reports: No Symptoms. Denies: Headaches, Visual Changes Pulmonary: Reports: No Symptoms. Denies: Shortness of Breath, Cough, Sputum Cardiovascular: Reports: No Symptoms. Denies: Chest Pain, Edema Gastrointestinal: Denies: Abdominal Pain, Nausea, Vomiting Musculoskeletal: Reports: Joint Pain (L knee). Denies: Neck Pain Neurological: Reports: No Symptoms Psychiatric: Reports: No Symptoms - Patient Data Vitals - Most Recent: Last Vital Signs Temp 97.7 F 07/05/17 08:00 Pulse 70 07/05/17 08:57 Resp 20 07/05/17 08:00 BP 129/61 07/05/17 08:57 Pulse Ox 95 07/05/17 08:00 Weight - Most Recent: 60.328 kg I&O - Last 24 Hours: Intake & Output 07/04/17 07/05/17 07/05/17 22:59 06:59 14:59 Intake Total 150 Output Total 350 Balance -200 Lab Results Last 24 Hours: Laboratory Results - last 24 hr 07/05/17 07/05/17 Range/Units 05:55 05:55 Hgb 11.3 L (12.0-16.0) g/dL Hct 33.8 L (36.0-46.0) % Sodium 124 L (136-146) mmol/L Potassium 4.2 (3.5-5.1) mmol/L Chloride 93 L (98-110) mmol/L Carbon Dioxide 23 (21-31) mmol/L BUN 22 (6.0-23.0) mg/dL Creatinine 1.3 (0.6-1.5) mg/dL Est Cr Clr Drug Dosing 25.18 mL/min Estimated GFR (MDRD) 39.2 ml/min Glucose 143 H (60-110) mg/dL Calcium 7.8 L (8.8-10.8) mg/dL Med Orders - Current: Current Medications Acetaminophen (Tylenol Extra Strength) 1,000 mg PO Q6H [facility] Last Admin: 07/05/17 06:24 Dose: 1,000 mg Amitriptyline HCl (Elavil) 5 mg PO BEDTIME [facility] Last Admin: 07/04/17 20:59 Dose: 5 mg Atorvastatin Calcium (Lipitor) 40 mg PO BEDTIME [facility] Last Admin: 07/04/17 20:59 Dose: 40 mg Calcium Carbonate/Glycine (Tums) 500 mg PO DAILY [facility] Last Admin: 07/05/17 08:42 Dose: 500 mg Cholecalciferol (Vitamin D3) 1,000 units PO DAILY [facility] Last Admin: 07/05/17 08:38 Dose: 1,000 units Diphenhydramine HCl (Benadryl) 25 - 50 mg PO Q6H PRN PRN Reason: Itching Dipyridamole/Aspirin (Aggrenox 200-25 Mg) 1 cap PO BIDMEALS [facility] Last Admin: 07/05/17 08:38 Dose: 1 cap Docusate Sodium (Colace) 100 mg PO BID [facility] Last Admin: 07/05/17 08:38 Dose: 100 mg Hydromorphone HCl (Dilaudid) 0.5 - 1 mg IVPUSH Q3H PRN PRN Reason: Pain Lisinopril (Prinivil) 10 mg PO DAILY [facility] Last Admin: 07/05/17 08:57 Dose: 10 mg Metoprolol Tartrate (Lopressor) 25 mg PO BIDMEALS [facility] Last Admin: 07/05/17 08:57 Dose: 25 mg Multivitamins/Minerals/Vitamin C (Tab-A-Tone) 1 tab PO DAILY [facility] Last Admin: 07/05/17 08:38 Dose: 1 tab Ondansetron HCl (Zofran) 4 mg IVPUSH Q6H PRN PRN Reason: Nausea/Vomiting Last Admin: 07/04/17 22:45 Dose: 4 mg Cyclosporine [ Restasis Multidose] 1 Drop 1 each EYEBOTH DAILY [facility] Last Admin: 07/05/17 08:39 Dose: Not Given Vitamin B Complex 1 (Tab) 1 each PO DAILY [facility] Last Admin: 07/05/17 08:39 Dose: Not Given Discontinued Medications Acetaminophen (Tylenol Extra Strength) 1,000 mg PO Q6H [facility] Last Admin: 07/04/17 02:33 Dose: Not Given Acetaminophen (Tylenol Extra Strength) 1,000 mg PO Q6H [facility] Last Admin: 07/04/17 05:17 Dose: 1,000 mg Hydrocodone Bitart/Acetaminophen ([place] 325-10 Mg) 1 - 2 tab PO Q4H PRN PRN Reason: Pain Last Admin: 07/04/17 02:36 Dose: 1 tab Aspirin (Ecotrin) 325 mg PO BID [facility] Calcium Carbonate/Glycine (Tums) 600 mg PO DAILY [facility] Last Admin: 07/04/17 08:10 Dose: 600 mg Cefazolin Sodium (Ancef) Confirm Administered Dose 1 gm .ROUTE .STK-MED ONE Stop: 07/03/17 09:37 Diphenhydramine HCl (Benadryl) Confirm Administered Dose 50 mg .ROUTE .STK-MED ONE Stop: 07/03/17 09:36 Ephedrine Sulfate (Ephedrine Sulfate) Confirm Administered Dose 50 mg .ROUTE .STK-MED ONE Stop: 07/03/17 12:18 Famotidine (Pepcid) 40 mg IVPUSH ONARRIVE [facility] Stop: 07/03/17 14:01 Fentanyl (Sublimaze) Confirm Administered Dose 100 mcg .ROUTE .STK-MED ONE Stop: 07/03/17 09:36 Acetaminophen 1,000 mg/ Premix 100 mls @ 400 mls/hr IV ONARRIVE [facility] Stop: 07/03/17 14:01 Cefazolin Sodium/Dextrose 1 gm (/ Premix) 50 mls @ 100 mls/hr IV ONCALL [facility] Stop: 07/03/17 14:01 Ropivacaine 49.25 ml/Ketorolac Tromethamine 30 mg/Epinephrine HCl 0.5 mg/ Clonidine HCl 80 mcg/ Sodium Chloride 100 mls @ 50 mls/hr INJECT SEECOMMENT ONE Stop: 07/03/17 09:59 Lactated Ringer's (Ringers, Lactated) 1,000 mls @ 100 mls/hr IV ASDIRECTED [facility] Tranexamic Acid 4,000 mg/ (Sodium Chloride) 140 mls @ 600 mls/hr IV ASDIRECTED [facility] Stop: 07/03/17 14:01 Acetaminophen 1,000 mg/ Premix 100 mls @ 400 mls/hr IV Q6H [facility] Stop: 07/03/17 20:00 Last Admin: 07/03/17 19:38 Dose: Not Given Cefazolin Sodium/Dextrose 1 gm (/ Premix) 50 mls @ 100 mls/hr IV Q8H [facility] Stop: 07/04/17 02:00 Last Admin: 07/04/17 02:28 Dose: 100 mls/hr Acetaminophen 1,000 mg/ Premix 100 mls @ 400 mls/hr IV Q6H [facility] Stop: 07/03/17 23:30 Last Admin: 07/03/17 22:56 Dose: 400 mls/hr Cefazolin Sodium/Dextrose (Ancef) Confirm Administered Dose 50 mls @ as directed .ROUTE .STK-MED ONE Stop: 07/03/17 09:36 Acetaminophen (Ofirmev) Confirm Administered Dose 100 mls @ as directed IV .STK- MED ONE Stop: 07/03/17 17:30 Sodium Chloride (Normal Saline) 500 mls @ 175 mls/hr IV ASDIRECTED [facility] Stop: 07/04/17 11:37 Last Admin: 07/04/17 09:23 Dose: 175 mls/hr Sodium Chloride (Normal Saline) 500 mls @ 175 mls/hr IV ASDIRECTED [facility] Stop: 07/04/17 19:07 Last Admin: 07/04/17 16:29 Dose: 175 mls/hr Ketorolac Tromethamine (Toradol) 15 mg IVPUSH ONARRIVE [facility] Stop: 07/03/17 14:01 Ketorolac Tromethamine (Toradol) 15 mg IVPUSH Q6H [facility] Stop: 07/04/17 04:00 Last Admin: 07/03/17 19:38 Dose: Not Given Lisinopril (Prinivil) 10 mg PO DAILY [facility] Midazolam HCl (Versed 1 Mg/Ml) Confirm Administered Dose 2 mg .ROUTE .STK-MED ONE Stop: 07/03/17 09:36 Ondansetron HCl (Zofran) Confirm Administered Dose 4 mg .ROUTE .STK-MED ONE Stop: 07/03/17 09:36 Oxycodone HCl (Oxycontin) 10 mg PO ONARRIVE [facility] Stop: 07/03/17 14:01 Oxycodone HCl (Oxycontin) 10 mg PO Q12HR [facility] Oxycodone HCl (Oxycodone) 5 - 10 mg PO Q4H PRN PRN Reason: Pain Oxycodone HCl (Oxycontin) Confirm Administered Dose 10 mg .ROUTE .STK-MED ONE Stop: 07/03/17 17:25 Propofol (Diprivan 20 Ml) Confirm Administered Dose 400 mg .ROUTE .STK-MED ONE Stop: 07/03/17 09:36 Scopolamine (Transderm-Scop) 1.5 mg TRDERM ONARRIVE [facility] Tranexamic Acid (Cyklokapron) Confirm Administered Dose 4,000 mg .ROUTE .STK- MED ONE Stop: 07/03/17 07:22 - Exam General: Alert, Oriented, Cooperative, No Acute Distress Neck: Supple Lungs: Clear to Auscultation, Normal Respiratory Effort Cardiovascular: Regular Rate, Regular Rhythm GI/Abdominal Exam: Normal Bowel Sounds, Soft, Non-Tender, No Organomegaly, No Distention, No Abnormal Bruit, No Mass, Pelvis Stable Extremities: Normal Inspection, Normal Range of Motion, Non-Tender, No Pedal Edema, Normal Capillary Refill Wound/Incisions: Dressing Dry and Intact Neurological: No New Focal Deficit Psy/Mental Status: Alert, Normal Affect, Normal Mood, Other (at times pleasantly confused.) Consult PN Assessment/Plan Procedures: Procedures ASSAY OF CK (CPK) (12/29/13) ASSAY OF FOLIC ACID SERUM (07/04/16) ASSAY OF FREE THYROXINE (09/21/14) ASSAY THYROID STIM HORMONE (09/21/14) CHEST X-RAY 2VW FRONTAL&LATL (05/10/17) COMPLETE CBC AUTOMATED (06/30/16) COMPLETE CBC W/AUTO DIFF WBC (06/25/17) COMPREHEN METABOLIC PANEL (01/23/17) DRAIN/INJ JOINT/BURSA W/O US (12/09/15) ELECTROCARDIOGRAM TRACING (05/10/17) GLYCOSYLATED HEMOGLOBIN TEST (05/10/17) IIV4 VACC NO PRSV 0.5 ML IM (05/10/16) LIPID PANEL (04/04/17) LOWER EXTREMITY STUDY (04/22/15) METABOLIC PANEL TOTAL CA (06/25/17) MICROBE SUSCEPTIBLE MAI (10/27/16) MRI JNT OF LWR EXTRE W/O DYE (04/26/17) OFFICE/OUTPATIENT VISIT EST (05/10/17) OFFICE/OUTPATIENT VISIT EST (04/10/17) OFFICE/OUTPATIENT VISIT EST (05/10/16) OFFICE/OUTPATIENT VISIT EST (08/31/15) OFFICE/OUTPATIENT VISIT EST (02/23/14) PCV13 VACCINE IM (05/10/16) PROTEIN E-PHORESIS SERUM (04/09/15) PROTHROMBIN TIME (05/10/17) ROUTINE VENIPUNCTURE (06/25/17) TRANSFERASE (AST) (SGOT) (12/29/13) TTE W/DOPPLER COMPLETE (06/01/17) URINALYSIS AUTO W/SCOPE (05/11/17) URINE BACTERIA CULTURE (10/27/16) URINE CULTURE/COLONY COUNT (02/21/17) VITAMIN B-12 (07/04/16) X-RAY EXAM OF KNEE 1 OR 2 (05/04/15) X-RAY EXAM OF KNEE 3 (04/09/15) (1) S/P total knee arthroplasty SNOMED Code(s): 0693159276948, 9709252509444 Code(s): Z96.659 - PRESENCE OF UNSPECIFIED ARTIFICIAL KNEE JOINT Current Visit: Yes Qualifiers: Laterality: left Qualified Code(s): Z96.652 - Presence of left artificial knee joint (2) HTN (hypertension) SNOMED Code(s): 40401253 Code(s): I10 - ESSENTIAL (PRIMARY) HYPERTENSION Current Visit: Yes Qualifiers: Hypertension type: essential hypertension Qualified Code(s): I10 - Essential (primary) hypertension (3) History of CVA with residual deficit SNOMED Code(s): 769071433 Code(s): I69.30 - UNSPECIFIED SEQUELAE OF CEREBRAL INFARCTION Current Visit : Yes (4) Hx of aortic valve replacement SNOMED Code(s): 5538261188563, 6186827181257 Code(s): Z95.2 - PRESENCE OF PROSTHETIC HEART VALVE Current Visit: Yes (5) Hx of CABG SNOMED Code(s): 824206725 Code(s): Z95.1 - PRESENCE OF AORTOCORONARY BYPASS GRAFT Current Visit: Yes (6) Pulmonary HTN SNOMED Code(s): 01449565 Code(s): I27.20 - PULMONARY HYPERTENSION, UNSPECIFIED Current Visit: Yes (7) Diastolic dysfunction SNOMED Code(s): 6638916 Code(s): I51.9 - HEART DISEASE, UNSPECIFIED Current Visit: Yes Problem List Initiated/Reviewed/Updated: Yes My Orders Last 24 Hours: My Active Orders 07/05/17 09:00 Calcium Carbonate [Tums] 500 mg PO DAILY Lisinopril [Prinivil] 10 mg PO DAILY 07/05/17 09:48 BMP [BASIC METABOLIC PANEL,BMP] [CHEM] Routine Plan: This 82 year old female admitted for L TKA Hospitalist service consulted for medical comorbidities 1. S/P L TKA: orders per Dr. Antonio 2. Hx AVR: Continue Aggrenox BID 3. HTN: Stable. Continue Metoprolol and Lisinopril, BP better starting to produce more urine. Hyponatremia noted this am, but patient asymptomatic. Will recheck and if not lower, would be able to discharge with follow up with PCP next week for BMP. 4. CAD, HX CABG: Stable, continue Atorvastatin. 5. Hx diastolic dysfunction, moderate pulmonary HTN: Appears euvolemic VTE prophylaxis: Aggrenox BID.
--- NOTE | 2017-07-05 13:27 | PCM.SN ---
- Free Text/Narrative Note: repeat BMP showed slight improvement in serum sodium - hospitalist recommends follow-up on outpatient basis Pt would benefit from home health services for physical therapy and wound care. She is homebound based on her recent left total knee arthroplasty, inability to drive, and winter weather makes transfers from her house to the vehicle very difficult for her in order for her to attend outpatient physical therapy. She is pleasantly confused, which will make independent wound care difficult. okay to discharge to home. see d/ch instructions, rx rx for wheeled walker on chart
--- NOTE | 2017-07-05 16:01 | PCM.SN ---
- Free Text/Narrative Note: nursing c/w Aquacel dressing being saturated okay'ed to remove and replace, and upon removal, moderate serosanguinous drainage was noted from the incision and I was called to floor moderate serosanguinous drainage from midaspect of incision with gentle palpation, able to express same drainage from wound between regina no surrounding erythema fluid collection seems to be normal post-op fluid shifts/collection that has settled between skin and fascia, was gently expressed with no pain to the patient wound was redressed with gauze, ABD, and DANIELA wrap for home wound care: would recommend leaving compression dressing in place until in-home eval. if no active drainage on in-home eval, place Aquacel dressing over incision/regina. if active drainage, replace compression dressing with new gauze, ABD, and DANIELA wrap
--- NOTE | 2017-07-06 15:31 | DISCH ---
DATE OF DISCHARGE: 07/05/2017 PRIMARY CARE PHYSICIAN: Richard Burroughs M.D. ADMITTING DIAGNOSIS: Degenerative joint disease, left knee, tricompartmental. OTHER MEDICAL DIAGNOSES: 1. Bioprosthetic aortic heart valve replacement. 2. History of stroke. DISCHARGE DIAGNOSES: 1. Degenerative joint disease, left knee, tricompartmental. 2. Bioprosthetic aortic heart valve replacement. 3. History of stroke. 4. Acute posthemorrhagic anemia. BRIEF HISTORY: Dilshad is an 82-year-old female who has had progressive complaints of left knee pain. She had tried and failed conservative treatment. At that time, surgical treatment was recommended. On July 03, 2017, the patient underwent a left total knee arthroplasty done by Dr. Elly Antonio. This was done under spinal anesthesia with sedation. Estimated blood loss was 50 mL. Tourniquet time was 36 minutes. There were no known complications. Upon completion of the procedure, the patient was transferred to the PACU and subsequently to Med/Surg for postoperative care. HOSPITAL COURSE: Postoperatively, the patient did well. She received 2 doses of Ancef postoperatively for a total of 24 hours of antibiotic coverage. The hospitalist service followed her through her hospital stay. Physical therapy followed her through her hospital stay. Her home Aggrenox was started on postoperative day #1 as DVT prophylaxis. We minimized her narcotic pain medication as she was pleasantly confused throughout her hospital stay. Her pain is better controlled with Tylenol only. Her vital signs have been stable. She has been afebrile. Her hemoglobin on the morning of July 05 was 11.3. She is ambulating with a wheeled walker. Her pain is controlled. She feels comfortable with discharge to home. DISCHARGE MEDICATIONS: 1. Tylenol extra strength 500 mg. 2. Colace 100 mg. DISCHARGE INSTRUCTIONS: 1. Follow up in clinic 10-14 days from the date of procedure. This appointment has been made for the patient. 2. Outpatient physical therapy 2-3 times per week for 6 weeks. 3. No driving while taking narcotic pain medication. 4. Change dressing on July 09, 2017. She should place a new Aquacel dressing and leave that in place until followup. 5. SUSANA hose, on in the morning, off in the evening. 6. Polar Care to the left knee as needed. For complete medication reconciliation and discharge instructions, please refer back to the patient's EHR. Should she have questions or concerns prior to her followup appointment, she has been advised to return to clinic or call. OMARI KIRK /[id number] MTDD
== END 2017-07-05 17:15 | disposition home or self-care (01) | DRG 470 ==
LOC: MW.MS 07-03 13:11
PROVIDERS: ADMIT Orthopaedic Surgery; ATTEND Orthopaedic Surgery
PROC: 0SRD0J9 Replacement of Left Knee Joint with Synthetic Substitute, Cemented, Open Approach (ICD-10-PCS; principal; 2017-07-03)
DX: M17.12 Unilateral primary osteoarthritis, left knee (principal); I50.30 Unspecified diastolic (congestive) heart failure; E87.1 Hypo-osmolality and hyponatremia; M25.762 Osteophyte, left knee; I25.10 Atherosclerotic heart disease of native coronary artery without angina pectoris; I10 Essential (primary) hypertension; E78.00 Pure hypercholesterolemia, unspecified; I27.20 Pulmonary hypertension, unspecified; Z95.1 Presence of aortocoronary bypass graft; Z86.73 Personal history of transient ischemic attack (TIA), and cerebral infarction without residual deficits; Z95.2 Presence of prosthetic heart valve; Z88.8 Allergy status to other drugs, medicaments and biological substances; Z79.899 Other long term (current) drug therapy
CPT/HCPCS: 01402; 36415; 73560-26-LT; 73560-LT; 80048; 85014; 85018; 85025; 86850; 86900; 86901; 88305; 88312; 97110-GP; 97161-GP; A9270-GY; C1713; C1776; J0171; J0690; J0735; J1200; J1885; J2250; J2405; J2704; J2795; J3010; J7040; J7050

== ENCOUNTER 2017-07-06 02:55 | Emergency (ER) | payer MEDICARE, OTHER ==
--- NOTE | 2017-07-06 03:12 | EDM.PDOC ---
ED HPI GENERAL MEDICAL PROBLEM - General Chief Complaint: Lower Extremity Injury/Pain Stated Complaint: KNEE PAIN, RECENT SURGERY Time Seen by Provider: 07/06/17 03:01 - History of Present Illness INITIAL COMMENTS - FREE TEXT/NARRATIVE: HISTORY AND PHYSICAL: History of present illness: Patient 82-year-old white female had recent left knee arthroplasty presents with concern of left knee pain she denies other concern is been no chest pain shortness breath nausea vomiting fever chills Review of systems: As per history of present illness and below otherwise all systems reviewed and negative. Past medical history: As per history of present illness and as reviewed below otherwise noncontributory. Surgical history: As per history of present illness and as reviewed below otherwise noncontributory. Social history: No reported history of drug or alcohol abuse. Family history: As per history of present illness and as reviewed below otherwise noncontributory. Physical exam: HEENT: Atraumatic, normocephalic, pupils reactive, negative for conjunctival pallor or scleral icterus, mucous membranes moist, throat clear, neck supple, nontender, trachea midline. Lungs: Clear to auscultation, breath sounds equal bilaterally, chest nontender. Heart: S1S2, regular, negative for clicks, rubs, or JVD. Abdomen: Soft, nondistended, nontender. Negative for masses or hepatosplenomegaly. Negative for costovertebral tenderness. Pelvis: Stable nontender. Genitourinary: Deferred. Rectal: Deferred. Extremities: He has some mild swelling consistent with postop changes there is no significant erythema wound is clean without evidence of infection.. Neuro: Awake, alert, follows commands moves all extremities limited but grossly nonfocal exam Diagnostics: CBC CMP x-ray left knee Therapeutics: None Impression: #1 postoperative left knee pain Definitive disposition and diagnosis as appropriate pending reevaluation and review of above. left knee Pain Score (Numeric/FACES): 3 - Related Data Allergies Allergy/AdvReac Type Severity Reaction Status Date / Time nitrofurantoin Allergy Rash Verified 07/06/17 03:41 [From Macrobid] nitrofurantoin Allergy Rash Verified 07/06/17 03:41 macrocrystalline [From Macrobid] Home Meds: Home Meds Amitriptyline [Elavil] 5 mg PO BEDTIME 06/29/17 [History] Aspirin/Dipyridamole [Aspirin-Dipyridam ER 25-200 mg] 1 cap PO BIDMEALS [History] Calcium Carbonate [Calcium] 600 mg PO DAILY 06/29/17 [History] Cholecalciferol (Vitamin D3) [Vitamin D3] 1,000 unit PO DAILY 06/29/17 [History] Lisinopril 10 mg PO DAILY 06/29/17 [History] Metoprolol Tartrate 25 mg PO BID 06/29/17 [History] Multivitamin [Multiple Vitamins] 1 tab PO DAILY 06/29/17 [History] Vitamin B Complex [B Complex] 1 tab PO DAILY 06/29/17 [History] atorvaSTATin Calcium [Atorvastatin Calcium] 40 mg PO BEDTIME 06/29/17 [History] cycloSPORINE [Restasis Multidose] 1 drop EYEBOTH DAILY 06/29/17 [History] Acetaminophen [Tylenol Extra Strength] 1,000 mg PO Q6H #100 tablet 07/04/17 [Rx] Docusate Sodium [Colace] 100 mg PO BID #60 cap 07/04/17 [Rx] Past Medical History HEENT History: Reports: Cataract, Hard of Hearing, Other (See Below) Other HEENT History: wears glasses, 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 Denies: Asthma, COPD, PE Gastrointestinal History: Reports: Chronic Constipation, Irritable Bowel Syndrome Other Gastrointestinal History: lactose intolerant Genitourinary History: Reports: None. Denies: Chronic Renal Insuffiency Musculoskeletal History: Reports: Arthritis Neurological History: Reports: CVA Other Neuro History: after Aortic valve replacement, has hearing loss to L ear , but no other residual Endocrine/Metabolic History: Reports: None. Denies: Diabetes, Type II, Hypothyroidism Dermatologic History: Reports: Other (See Below) Other Dermatologic History: has 3 "spots" frozen on her forehead - Past Surgical History HEENT Surgical History: Reports: Cataract Surgery Cardiovascular Surgical History: Reports: Coronary Artery Bypass, Valve Replacement Other Cardiovascular Surgeries/Procedures: Aortic valve replacement GI Surgical History: Reports: Cholecystectomy Female Surgical History: Reports: Breast Biopsy Social & Family History - Tobacco Use Smoking Status *Q: Never Smoker - Recreational Drug Use Recreational Drug Use: No Drug Use in Last 12 Months: No Review of Systems - Review of Systems Review Of Systems: ROS reveals no pertinent complaints other than HPI. ED EXAM, GENERAL - Physical Exam Exam: See Below (See dictation) Course - Vital Signs Last Recorded V/S: Last Vital Signs Temp 36.5 C 07/06/17 04:20 Pulse 72 07/06/17 04:20 Resp 18 07/06/17 04:20 BP 135/45 L 07/06/17 04:20 Pulse Ox 95 07/06/17 04:20 - Orders/Labs/Meds Orders: Active Orders 24 hr Category Date Time Status Knee 1V or 2V Lt [CR] Stat Exams 07/06/17 03:38 Taken Labs: Laboratory Tests 07/06/17 07/06/17 Range/Units 03:27 03:27 WBC 10.25 (4.0-11.0) K/uL RBC 3.68 L (4.30-5.90) M/uL Hgb 12.2 (12.0-16.0) g/dL Hct 35.9 L (36.0-46.0) % MCV 97.6 (80.0-98.0) fL MCH 33.2 H (27.0-32.0) pg MCHC 34.0 (31.0-37.0) g/dL RDW Std Deviation 44.8 (28.0-62.0) fl RDW Coeff of Julissa 13 (11.0-15.0) % Plt Count 116 L (150-400) K/uL MPV 11.20 (7.40-12.00) fL Neut % (Auto) 69.9 (48.0-80.0) % Lymph % (Auto) 15.1 L (16.0-40.0) % [place] % (Auto) 14.6 (0.0-15.0) % Eos % (Auto) 0.3 (0.0-7.0) % Baso % (Auto) 0.1 (0.0-1.5) % Neut # (Auto) 7.2 H (1.4-5.7) K/uL Lymph # (Auto) 1.6 (0.6-2.4) K/uL [place] # (Auto) 1.5 H (0.0-0.8) K/uL Eos # (Auto) 0.0 (0.0-0.7) K/uL Baso # (Auto) 0.0 (0.0-0.1) K/uL Nucleated RBC % 0.0 /100WBC Nucleated RBCs # 0 K/uL Sodium 128 L (136-146) mmol/L Potassium 4.9 (3.5-5.1) mmol/L Chloride 98 (98-110) mmol/L Carbon Dioxide 22 (21-31) mmol/L BUN 21 (6.0-23.0) mg/dL Creatinine 1.1 (0.6-1.5) mg/dL Est Cr Clr Drug Dosing 29.75 mL/min Estimated GFR (MDRD) 47.6 ml/min Glucose 110 (60-110) mg/dL Calcium 8.6 L (8.8-10.8) mg/dL Total Bilirubin 0.9 (0.1-1.5) mg/dL AST 26 (5-40) IU/L ALT 9 (8-54) IU/L Alkaline Phosphatase 79 (40-150) Total Protein 6.7 (6.0-8.0) g/dL Albumin 3.5 (3.4-4.8) g/dL Globulin 3.2 (2.0-3.5) g/dL Albumin/Globulin Ratio 1.1 L (1.3-2.8) Departure - Departure Time of Disposition: 06:22 Disposition: Home, Self-Care 01 Condition: Good Clinical Impression: Pain at surgical site - Discharge Information Instructions: Total Knee Replacement, Care After, [id number] Referrals: Richard Burroughs MD [Primary Care Provider] - Forms: ED Department Discharge - My Orders Last 24 Hours: My Active Orders 07/06/17 03:38 Knee 1V or 2V Lt [CR] Stat - Assessment/Plan Last 24 Hours: My Active Orders 07/06/17 03:38 Knee 1V or 2V Lt [CR] Stat
--- NOTE | 2017-07-06 18:00 | CR ---
EXAM DATE: 07/06/17 PATIENT'S AGE: 82 Patient: MALCOLM MANCILLA Facility: [place], [place] Site . Site : [id number] Study: XRay Knee Left [id number]/22/2017 3:47:40 AM Ordering Physician: Paco Sanabria Final Report: Indication: Postop injury, unable to bend knee Technique: Two views left knee Comparison: None Findings/impression: : Status post left knee arthroplasty. Anatomic alignment. No fracture or subluxation. Postoperative air and skin regina seen anterior to the knee joint. Mild soft tissue swelling along the distal femur. Dictated by Anita Bailey MD @ Jul 06 2017 4:08AM (Electronic Signature) Report Signed by Proxy. RIZWAN
== END 2017-07-06 04:35 | disposition home or self-care (01) ==
LOC: MW.ED 02:55
DX: G89.18 Other acute postprocedural pain (principal); M25.562 Pain in left knee; I10 Essential (primary) hypertension; I25.10 Atherosclerotic heart disease of native coronary artery without angina pectoris; E78.00 Pure hypercholesterolemia, unspecified; Z95.2 Presence of prosthetic heart valve; Z79.82 Long term (current) use of aspirin; Z79.899 Other long term (current) drug therapy; Z88.8 Allergy status to other drugs, medicaments and biological substances; Z98.890 Other specified postprocedural states
CPT/HCPCS: 36415; 73560-26-LT; 73560-LT; 80053; 85025; 99282; 99284

== ENCOUNTER 2019-03-28 23:08 | Emergency (ER) | payer MEDICARE, OTHER ==
[2019-03-28] MEDS ORDERED: Sodium Chloride 0.9% 10 ML Syringe FLUSH PRN (23:21)
[2019-03-28] MEDS ORDERED: Sodium Chloride 0.9% 2.5 ML Syringe FLUSH PRN (23:21)
[2019-03-28] MEDS ORDERED: Aspirin 81 MG Tab.Chew PO ONE (23:21)
--- NOTE | 2019-03-28 23:26 | EDM.PDOC ---
ED HPI GENERAL MEDICAL PROBLEM - General Chief Complaint: Chest Pain Stated Complaint: PT HAS CHEST PAINS Time Seen by Provider: 03/28/19 23:10 - History of Present Illness INITIAL COMMENTS - FREE TEXT/NARRATIVE: HISTORY AND PHYSICAL: History of present illness: The patient is an 83-year-old female who follows in our clinic and has a history of hypertension/pulmonary hypertension CVA CABG aVR who presents via EMS with episodic left chest pain which is localized just to the left upper sternum and shortness of breath. The patient was last seen in the clinic in December and says that she discussed with her provider that she was having episodes and he did not think much of it nor did he do any other tests. She says that she has 1-2 episodes a day since December but usually they don't last very long with a maximum of 30 minutes. She says initially they were not associated with shortness of breath and this evening she called the ambulance because the episode lasted longer, 2-3 hours, then usual and she felt more short of breath. She currently has no pain in the ED and took no medications for this prior to arrival. EMS did not given any medications in route either. She says she has no abdominal pain and is eating and drinking normally and she has no history of leg edema nor is she having any leg edema or swelling currently. She tells me that she was going to wait and get seen in the clinic on Sunday but when she called to make an appointment earlier today they did not have any and she talked to one of her friends who is a nurse who thought she should be checked out more emergently. He said no fevers chills cough or respiratory symptoms no nausea vomiting or diarrhea and no hematuria or dysuria. She says that she does go to the bathroom and urinates quite frequently but again that is not new or different. She currently is not short of breath here in the ED. The patient says that with her valve replacement she is unsure if it is mechanical or tissue but she does not recall that she takes any blood thinners. Please see below for more information on this Review of systems: As per history of present illness and below otherwise all systems reviewed and negative. Past medical history: As per history of present illness and as reviewed below otherwise noncontributory. Surgical history: As per history of present illness and as reviewed below otherwise noncontributory. Social history: No reported history of drug or alcohol abuse. Family history: As per history of present illness and as reviewed below otherwise noncontributory. Physical exam: General: Well-developed well-nourished female who is nontoxic and smiling and interactive here in the ED. Vital signs are noted by me and she is not breathless on my evaluation HEENT: Atraumatic, normocephalic, negative for conjunctival pallor or scleral icterus, mucous membranes moist, throat clear, neck supple, nontender, trachea midline. Lungs: Clear to auscultation with slightly diminished breath sounds in the bases but no wheezing stridor or work of breathing, breath sounds equal bilaterally, chest with some mild tenderness just to the left of the sternum in the chest wall area without defects deformities or crepitus with the patient says that this does reproduce her pain Heart: S1S2, regular, negative for clicks, rubs, or JVD. The patient does have a slight systolic ejection murmur heard at the left sternal border but it does not sound like a mechanical valve clicking Abdomen: Soft, nondistended, nontender. Negative for masses or hepatosplenomegaly. Negative for costovertebral tenderness. Pelvis: Stable nontender. Genitourinary: Deferred. Rectal: Deferred. Extremities: Atraumatic, negative for cords or calf pain. Neurovascular unremarkable. No pedal edema or leg asymmetry Neuro: Awake, alert, oriented. Cranial nerves II through XII unremarkable. Cerebellum unremarkable. Motor and sensory unremarkable throughout. Exam nonfocal. Diagnostics: EKG CBC CMP INR troponin UA chest x-ray urine culture Therapeutics: IV O2 monitor aspirin According to the report of her clinic visit in December of this year the patient has a FreeStyle aortic valve replacement done in [place] and she was started on Plavix by her provider on that care visit Patient has been stable here in the ED and I discussed all test results with the patient and her and son at bedside. I have offered her observation admission due to her risk factors but not due to her history or due to her objective findings here tonight. I will treat her UTI. After discussion the pt and family wants to go home and follow up in clinic. They're aware of the risks involved and that I cannot completely rule out a cardiac event here and that would require observation admission and there are still comfortable with care plan at home as this chest pain is of a more chronic nature. I've advised him on reasons to return to the ED Impression: Episodic left chest pain acute on chronic, dyspnea objective nonspecific; UTI Definitive disposition and diagnosis as appropriate pending reevaluation and review of above. chest Pain Score (Numeric/FACES): 4 - Related Data Allergies Allergy/AdvReac Type Severity Reaction Status Date / Time nitrofurantoin Allergy Rash Verified 03/28/19 23:13 [From Macrobid] nitrofurantoin Allergy Rash Verified 03/28/19 23:13 macrocrystalline [From Macrobid] Home Meds: Home Meds Lisinopril 10 mg PO DAILY 06/29/17 [History] Metoprolol Tartrate 25 mg PO BID 06/29/17 [History] atorvaSTATin Calcium [Atorvastatin Calcium] 40 mg PO BEDTIME 06/29/17 [History] Clopidogrel [Plavix] 1 tab PO DAILY 03/28/19 [History] Multivitamin [Multivitamins] 1 tab PO DAILY 03/29/19 [History] Past Medical History HEENT History: Reports: Cataract, Hard of Hearing, Other (See Below) Other HEENT History: wears glasses, 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 Denies: Asthma, COPD, PE Gastrointestinal History: Reports: Chronic Constipation, Irritable Bowel Syndrome Other Gastrointestinal History: lactose intolerant Genitourinary History: Reports: None. Denies: Chronic Renal Insuffiency Musculoskeletal History: Reports: Arthritis Neurological History: Reports: CVA Other Neuro History: after Aortic valve replacement, has hearing loss to L ear , but no other residual Endocrine/Metabolic History: Reports: None. Denies: Diabetes, Type II, Hypothyroidism Dermatologic History: Reports: Other (See Below) Other Dermatologic History: has 3 "spots" frozen on her forehead - Infectious Disease History Infectious Disease History: Reports: Chicken Pox, Measles - Past Surgical History HEENT Surgical History: Reports: Cataract Surgery Cardiovascular Surgical History: Reports: Coronary Artery Bypass, Valve Replacement Other Cardiovascular Surgeries/Procedures: Aortic valve replacement GI Surgical History: Reports: Cholecystectomy Female Surgical History: Reports: Breast Biopsy Social & Family History - Caffeine Use Caffeine Use: Reports: Coffee, Soda ED ROS GENERAL - Review of Systems Review Of Systems: ROS reveals no pertinent complaints other than HPI. ED EXAM, GENERAL - Physical Exam Exam: See Below (See dictation) Course - Vital Signs Last Recorded V/S: Last Vital Signs Temp 36.5 C 03/28/19 23:08 Pulse 65 03/28/19 23:08 Resp 18 03/28/19 23:08 BP 151/90 H 03/28/19 23:08 Pulse Ox 98 03/28/19 23:08 - Orders/Labs/Meds Orders: Active Orders 24 hr Category Date Time Status Cardiac Monitoring [RC] . DIRECTED Care 03/28/19 23:20 Active EKG Documentation Completion [RC] STAT Care 03/28/19 23:20 Active Oxygen Therapy, ED [RC] ASDIRECTED Care 03/28/19 23:20 Active Pulse Oximetry [RC] ASDIRECTED Care 03/28/19 23:20 Active CULTURE URINE [RM] Stat Lab 03/29/19 00:20 Received Sodium Chloride 0.9% [Saline Flush] Med 03/28/19 23:21 Active 10 ml FLUSH ASDIRECTED PRN Sodium Chloride 0.9% [Saline Flush] Med 03/28/19 23:21 Active 2.5 ml FLUSH ASDIRECTED PRN Saline Lock Insert [OM.PC] Stat Oth 03/28/19 23:20 Ordered Medication Orders Sodium Chloride (Saline Flush) 10 ml FLUSH ASDIRECTED PRN PRN Reason: Keep Vein Open Sodium Chloride (Saline Flush) 2.5 ml FLUSH ASDIRECTED PRN PRN Reason: Keep Vein Open Labs: Laboratory Tests 03/28/19 03/28/19 03/28/19 Range/Units 23:30 23:30 23:30 WBC 7.19 (4.0-11.0) K/uL RBC 4.12 L (4.30-5.90) M/uL Hgb 13.6 (12.0-16.0) g/dL Hct 40.9 (36.0-46.0) % MCV 99.3 H (80.0-98.0) fL MCH 33.0 H (27.0-32.0) pg MCHC 33.3 (31.0-37.0) g/dL RDW Std Deviation 46.0 (28.0-62.0) fl RDW Coeff of Julissa 13 (11.0-15.0) % Plt Count 142 L (150-400) K/uL MPV 10.50 (7.40-12.00) fL Neut % (Auto) 58.0 (48.0-80.0) % Lymph % (Auto) 26.1 (16.0-40.0) % Gem % (Auto) 14.7 (0.0-15.0) % Eos % (Auto) 1.1 (0.0-7.0) % Baso % (Auto) 0.1 (0.0-1.5) % Neut # (Auto) 4.2 (1.4-5.7) K/uL Lymph # (Auto) 1.9 (0.6-2.4) K/uL Gem # (Auto) 1.1 H (0.0-0.8) K/uL Eos # (Auto) 0.1 (0.0-0.7) K/uL Baso # (Auto) 0.0 (0.0-0.1) K/uL Nucleated RBC % 0.0 /100WBC Nucleated RBCs # 0 K/uL INR 1.07 Sodium 139 (136-145) mmol/L Potassium 4.8 (3.5-5.1) mmol/L Chloride 102 (98-107) mmol/L Carbon Dioxide 28.2 (21.0-32.0) mmol/L BUN 28 H (7.0-18.0) mg/dL Creatinine 1.3 H (0.6-1.0) mg/dL Est Cr Clr Drug Dosing TNP Estimated GFR (MDRD) 39.1 ml/min Glucose 101 (74-106) mg/dL Calcium 9.3 (8.5-10.1) mg/dL Total Bilirubin 0.3 (0.2-1.0) mg/dL AST 17 (15-37) IU/L ALT 20 (14-63) IU/L Alkaline Phosphatase 104 (46-116) U/L Troponin I < 0.050 (0.000-0.056) ng/mL Total Protein 7.2 (6.4-8.2) g/dL Albumin 3.3 L (3.4-5.0) g/dL Globulin 3.9 (2.6-4.0) g/dL Albumin/Globulin Ratio 0.9 (0.9-1.6) Urine Color Urine Appearance Urine pH (5.0-8.0) Ur Specific Barton (1.001-1.035) Urine Protein (NEGATIVE) mg/dL Urine Glucose (UA) (NEGATIVE) mg/dL Urine Ketones (NEGATIVE) mg/dL Urine Occult Blood (NEGATIVE) Urine Nitrite (NEGATIVE) Urine Bilirubin (NEGATIVE) Urine Urobilinogen (<2.0) EU/dL Ur Leukocyte Esterase (NEGATIVE) Urine RBC (0-2/HPF) Urine WBC (0-5/HPF) Ur Epithelial Cells (NONE-FEW) Urine Bacteria (NEGATIVE) 03/29/19 Range/Units 00:20 WBC (4.0-11.0) K/uL RBC (4.30-5.90) M/uL Hgb (12.0-16.0) g/dL Hct (36.0-46.0) % MCV (80.0-98.0) fL MCH (27.0-32.0) pg MCHC (31.0-37.0) g/dL RDW Std Deviation (28.0-62.0) fl RDW Coeff of Julissa (11.0-15.0) % Plt Count (150-400) K/uL MPV (7.40-12.00) fL Neut % (Auto) (48.0-80.0) % Lymph % (Auto) (16.0-40.0) % Gem % (Auto) (0.0-15.0) % Eos % (Auto) (0.0-7.0) % Baso % (Auto) (0.0-1.5) % Neut # (Auto) (1.4-5.7) K/uL Lymph # (Auto) (0.6-2.4) K/uL Gem # (Auto) (0.0-0.8) K/uL Eos # (Auto) (0.0-0.7) K/uL Baso # (Auto) (0.0-0.1) K/uL Nucleated RBC % /100WBC Nucleated RBCs # K/uL INR Sodium (136-145) mmol/L Potassium (3.5-5.1) mmol/L Chloride (98-107) mmol/L Carbon Dioxide (21.0-32.0) mmol/L BUN (7.0-18.0) mg/dL Creatinine (0.6-1.0) mg/dL Est Cr Clr Drug Dosing Estimated GFR (MDRD) ml/min Glucose (74-106) mg/dL Calcium (8.5-10.1) mg/dL Total Bilirubin (0.2-1.0) mg/dL AST (15-37) IU/L ALT (14-63) IU/L Alkaline Phosphatase (46-116) U/L Troponin I (0.000-0.056) ng/mL Total Protein (6.4-8.2) g/dL Albumin (3.4-5.0) g/dL Globulin (2.6-4.0) g/dL Albumin/Globulin Ratio (0.9-1.6) Urine Color YELLOW Urine Appearance CLOUDY Urine pH 7.0 (5.0-8.0) Ur Specific Barton <= 1.005 (1.001-1.035) Urine Protein NEGATIVE (NEGATIVE) mg/dL Urine Glucose (UA) NEGATIVE (NEGATIVE) mg/dL Urine Ketones NEGATIVE (NEGATIVE) mg/dL Urine Occult Blood NEGATIVE (NEGATIVE) Urine Nitrite POSITIVE H (NEGATIVE) Urine Bilirubin NEGATIVE (NEGATIVE) Urine Urobilinogen 0.2 (<2.0) EU/dL Ur Leukocyte Esterase LARGE H (NEGATIVE) Urine RBC 0-1 (0-2/HPF) Urine WBC 17-24 (0-5/HPF) Ur Epithelial Cells RARE (NONE-FEW) Urine Bacteria 2+ H (NEGATIVE) Meds: Medications Generic Name Dose Route Start Last Admin Trade Name Pranay PRN Reason Stop Dose Admin Sodium Chloride 10 ml 03/28/19 23:21 Saline Flush FLUSH ASDIRECTED PRN Keep Vein Open Sodium Chloride 2.5 ml 03/28/19 23:21 Saline Flush FLUSH ASDIRECTED PRN Keep Vein Open Discontinued Medications Generic Name Dose Route Start Last Admin Trade Name Pranay PRN Reason Stop Dose Admin Aspirin 324 mg 03/28/19 23:21 03/28/19 23:35 Aspirin PO 03/28/19 23:22 324 mg ONETIME ONE Administration Ciprofloxacin 500 mg 03/29/19 00:44 Ciprofloxacin Hcl PO 03/29/19 00:45 ONETIME ONE Departure - Departure Time of Disposition: 00:56 Disposition: Home, Self-Care 01 Condition: Good Clinical Impression: Chest pain Qualifiers: Chest pain type: unspecified Qualified Code(s): R07.9 - Chest pain, unspecified Dyspnea, unspecified Qualifiers: Dyspnea type: unspecified Qualified Code(s): R06.00 - Dyspnea, unspecified UTI (urinary tract infection) Qualifiers: Urinary tract infection type: site unspecified Hematuria presence: without hematuria Qualified Code(s): N39.0 - Urinary tract infection, site not specified - Discharge Information Referrals: Richard Burroughs MD [Primary Care Provider] - Forms: ED Department Discharge Additional Instructions: The following information is given to patients seen in the emergency department who are being discharged to home. This information is to outline your options for follow-up care. We provide all patients seen in our emergency department with a follow-up referral. The need for follow-up, as well as the timing and circumstances, are variable depending upon the specifics of your emergency department visit. If you don't have a primary care physician on staff, we will provide you with a referral. We always advise you to contact your personal physician following an emergency department visit to inform them of the circumstance of the visit and for follow-up with them and/or the need for any referrals to a consulting specialist. The emergency department will also refer you to a specialist when appropriate. This referral assures that you have the opportunity for followup care with a specialist. All of these measure are taken in an effort to provide you with optimal care, which includes your followup. Under all circumstances we always encourage you to contact your private physician who remains a resource for coordinating your care. When calling for followup care, please make the office aware that this follow-up is from your recent emergency room visit. If for any reason you are refused follow-up, please contact the [facility] emergency department at and ask to speak to the emergency department charge nurse [facility] Primary care- [facility] [address] Continue all home medications and please fill the prescription you have been given for antibiotics for urinary tract infection. Please continue to monitor symptoms and return to ER as needed and as discussed. Connect the clinic and get a follow-up appointment for next week with your provider or one of his associates. - My Orders Last 24 Hours: My Active Orders 03/28/19 23:20 Cardiac Monitoring [RC] . DIRECTED EKG Documentation Completion [RC] STAT Oxygen Therapy, ED [RC] ASDIRECTED Pulse Oximetry [RC] ASDIRECTED Saline Lock Insert [OM.PC] Stat 03/28/19 23:21 Sodium Chloride 0.9% [Saline Flush] 10 ml FLUSH ASDIRECTED PRN Sodium Chloride 0.9% [Saline Flush] 2.5 ml FLUSH ASDIRECTED PRN 03/29/19 00:20 CULTURE URINE [RM] Stat - Assessment/Plan Last 24 Hours: My Active Orders 03/28/19 23:20 Cardiac Monitoring [RC] . DIRECTED EKG Documentation Completion [RC] STAT Oxygen Therapy, ED [RC] ASDIRECTED Pulse Oximetry [RC] ASDIRECTED Saline Lock Insert [OM.PC] Stat 03/28/19 23:21 Sodium Chloride 0.9% [Saline Flush] 10 ml FLUSH ASDIRECTED PRN Sodium Chloride 0.9% [Saline Flush] 2.5 ml FLUSH ASDIRECTED PRN 03/29/19 00:20 CULTURE URINE [RM] Stat
[2019-03-28 23:55] LABS: BLOOD UREA NITROGEN,BUN 28 mg/dL (7.0-18.0); CARBON DIOXIDE,CO2 28.2 mmol/L (21.0-32.0); CHLORIDE,CL 102 mmol/L (98-107); GLUCOSE RANDOM 101 mg/dL (74-106); POTASSIUM,K 4.8 mmol/L (3.5-5.1); SODIUM,NA 139 mmol/L (136-145)
--- NOTE | 2019-03-29 00:29 | CR ---
INDICATION: Chest pain, shortness of breath TECHNIQUE: Chest radiograph 1 view COMPARISON: None FINDINGS: Mediastinum: The cardiac silhouette is near the upper limits of normal. Previous median sternotomy and coronary artery bypass grafting (CABG) noted. Lung: Both lungs are unremarkable in appearance. No sign of pleural effusion seen. No pneumothorax is identified. IMPRESSION: 1. No acute cardiopulmonary disease is seen. Dictated by Frederick Rosario MD @ 03/29/2019 12:27:33 AM Dictated by: Frederick Rosario MD @ 03/29/2019 00:27:36 (Electronically Signed)
[2019-03-29] MEDS ORDERED: Ciprofloxacin 500 MG Tab PO ONE (00:44)
== END 2019-03-29 01:10 | disposition home or self-care (01) ==
LOC: MW.ED 23:08
DX: R07.9 Chest pain, unspecified (principal); R06.02 Shortness of breath; N39.0 Urinary tract infection, site not specified; I10 Essential (primary) hypertension; J44.9 Chronic obstructive pulmonary disease, unspecified; E78.00 Pure hypercholesterolemia, unspecified; Z86.73 Personal history of transient ischemic attack (TIA), and cerebral infarction without residual deficits; Z79.899 Other long term (current) drug therapy; Z88.8 Allergy status to other drugs, medicaments and biological substances
CPT/HCPCS: 36415; 71045; 80053; 81001; 84484; 85025; 85610; 87086; 87088; 87186; 93005; 99285; A9270

== ENCOUNTER 2021-03-12 23:01 | Emergency (ER) | payer MEDICARE, OTHER ==
[2021-03-12] MEDS ORDERED: Sodium Chloride 0.9% 10 ML Syringe FLUSH PRN (23:13)
[2021-03-12] MEDS ORDERED: Sodium Chloride 0.9% 2.5 ML Syringe FLUSH PRN (23:13)
--- NOTE | 2021-03-12 23:16 | EDM.PDOC ---
ED HPI GENERAL MEDICAL PROBLEM - General Chief Complaint: General Stated Complaint: DEMENTIA Time Seen by Provider: 03/12/21 23:02 - History of Present Illness INITIAL COMMENTS - FREE TEXT/NARRATIVE: History of present illness: [] The son is a historian. He says his mother lives with his father. She has more confused than usual now. She has been gradually more confused since 4 years ago when she had knee surgery. She is also had a CVA in the past. Today the patient was more confused according to the son and is afraid of the . She thinks the yelled at her. The son said he may have corrected her but he does not feel like the is a threat. The is sound mind and able bodied but older. The son says she does not recognize Harjinder or recall who her family members are today. Its been going on all day. Last time normal was yesterday. The patient takes medicine for blood pressure and cholesterol. She has a local physician. The patient has no complaint. She does ask if she is all right to decide whether to answer that she is all right. She denies any pain shortness of breath or physical discomfort. Review of systems: As per history of present illness and below otherwise all systems reviewed and negative. Past medical history: As per history of present illness and as reviewed below otherwise noncontributory. Surgical history: As per history of present illness and as reviewed below otherwise noncontributory. Social history: No reported history of drug or alcohol abuse. Family history: As per history of present illness and as reviewed below otherwise noncontributo ry. Physical exam: Constitutional - well developed, well-nourished and in no acute distress HEENT - normocephalic, no evidence of trauma - external nose and mouth normal - no mass in neck and no JVD - mucosae moist EYES - full EOM, PERRL, no icterus - no evidence of inflammation, injection, or drainage Respiratory - no respiratory distress, equal bilateral expansion, lungs clear to auscultation and no abnormal lung sounds Cardiovascular - Regular Rhythm with S1 and S2 appreciated and no murmur, gallop or rub. GI - abdomen soft without distension or organomegaly - normal bowel sounds - no guard or rebound Musculoskeletal no gross deformity of long bones or joints - no tenderness, swelling or edema Neurologic - Alert and oriented to person-thinks she is on vacation. Thinks she was talking to somebody other than her in the home. There is no one on her then in the home. CN II-XII grossly intact - motor sensory and coordination symmetrically normal Psychiatric - appropriate mood and affect with normal thought content Hematologic - No petechiae or purpura - mucosa appropriate color and sclera not pale - normal nail bed color and refill Integument - no rash or evidence of trauma - normal turgor Diagnostics: [] Therapeutics: [] Impression: [] Plan: [] Definitive disposition and diagnosis as appropriate pending reevaluation and review of above. - Related Data Allergies Allergy/AdvReac Type Severity Reaction Status Date / Time nitrofurantoin Allergy Rash Verified 03/12/21 23:05 [From Macrobid] nitrofurantoin Allergy Rash Verified 03/12/21 23:05 macrocrystalline [From Macrobid] Home Meds: Home Meds Lisinopril 10 mg PO DAILY 06/29/17 [History] Metoprolol Tartrate 25 mg PO BID 06/29/17 [History] atorvaSTATin Calcium [Atorvastatin Calcium] 40 mg PO BEDTIME 06/29/17 [History] Clopidogrel [Plavix] 1 tab PO DAILY 03/28/19 [History] Multivitamin [Multivitamins] 1 tab PO DAILY 03/29/19 [History] QUEtiapine [SEROquel] 50 mg PO BID PRN #15 tablet 03/13/21 [Rx] Past Medical History HEENT History: Reports: Cataract, Hard of Hearing, Other (See Below) Other HEENT History: wears glasses, 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 Denies: Asthma, COPD, PE Gastrointestinal History: Reports: Chronic Constipation, Irritable Bowel Syndrome Other Gastrointestinal History: lactose intolerant Genitourinary History: Reports: None. 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 Denies: Diabetes, Type II, Hypothyroidism Dermatologic History: Reports: Other (See Below) Other Dermatologic History: has 3 "spots" frozen on her forehead - Infectious Disease History Infectious Disease History: Reports: Chicken Pox, Measles - Past Surgical History HEENT Surgical History: Reports: Cataract Surgery Cardiovascular Surgical History: Reports: Coronary Artery Bypass, Valve Re placement Other Cardiovascular Surgeries/Procedures: Aortic valve replacement GI Surgical History: Reports: Cholecystectomy Female Surgical History: Reports: Breast Biopsy Social & Family History - Family History Family Medical History: No Pertinent Family History - Caffeine Use Caffeine Use: Reports: Coffee, Soda ED ROS GENERAL - Review of Systems Review Of Systems: Comprehensive ROS is negative, except as noted in HPI. ED EXAM, GENERAL - Physical Exam Exam: See Below Free Text/Narrative:: My physical exam is in the HPI #1 Interpretation EKG Interpretation Comments: EKG performed 03/12/2021 at time 2326 hrs. sinus rhythm heart rate 60 CT 188 QT duration 401 [place] 81 slight right axis deviation in the QRS and some T wave inversions in inferior and lateral leads. Compared to 03/28/2019 no acute change impression no acute injury Course - Vital Signs Last Recorded V/S: Last Vital Signs Temp 36.8 C 03/12/21 23:06 Pulse 58 L 03/12/21 23:06 Resp 18 03/12/21 23:06 BP 184/80 H 03/12/21 23:06 Pulse Ox 95 03/12/21 23:06 - Orders/Labs/Meds Orders: Active Orders 24 hr Category Date Time Status Sodium Chloride 0.9% [Saline Flush] Med 03/12/21 23:13 Active 10 ml FLUSH ASDIRECTED PRN Sodium Chloride 0.9% [Saline Flush] Med 03/12/21 23:13 Active 2.5 ml FLUSH ASDIRECTED PRN Saline Lock Insert [OM.PC] Stat Oth 03/12/21 23:13 Ordered Medication Orders Sodium Chloride (Sodium Chloride 0.9% 10 Ml Syringe) 10 ml FLUSH ASDIRECTED PRN PRN Reason: Keep Vein Open Sodium Chloride (Sodium Chloride 0.9% 2.5 Ml Syringe) 2.5 ml FLUSH ASDIRECTED PRN PRN Reason: Keep Vein Open Labs: Laboratory Tests 03/12/21 03/12/21 03/13/21 Range/Units 23:45 23:45 01:25 WBC 9.92 (4.0-11.0) K/uL RBC 4.13 L (4.30-5.90) M/uL Hgb 13.5 (12.0-16.0) g/dL Hct 38.7 (36.0-46.0) % MCV 93.7 (80.0-98.0) fL MCH 32.7 H (27.0-32.0) pg MCHC 34.9 (31.0-37.0) g/dL RDW Std Deviation 44.1 (28.0-62.0) fl RDW Coeff of Julissa 13 (11.0-15.0) % Plt Count 122 L (150-400) K/uL MPV 10.40 (7.40-12.00) fL Neut % (Auto) 70.2 (48.0-80.0) % Lymph % (Auto) 16.6 (16.0-40.0) % [place] % (Auto) 12.3 (0.0-15.0) % Eos % (Auto) 0.7 (0.0-7.0) % Baso % (Auto) 0.2 (0.0-1.5) % Neut # (Auto) 7.0 H (1.4-5.7) K/uL Lymph # (Auto) 1.7 (0.6-2.4) K/uL [place] # (Auto) 1.2 H (0.0-0.8) K/uL Eos # (Auto) 0.1 (0.0-0.7) K/uL Baso # (Auto) 0.0 (0.0-0.1) K/uL Nucleated RBC % 0.0 /100WBC Nucleated RBCs # 0 K/uL Sodium 133 L (136-145) mmol/L Potassium 4.5 (3.5-5.1) mmol/L Chloride 99 (98-107) mmol/L Carbon Dioxide 25.8 (21.0-32.0) mmol/L BUN 33 H (7.0-18.0) mg/dL Creatinine 1.6 H (0.6-1.0) mg/dL Est Cr Clr Drug Dosing TNP Estimated GFR (MDRD) 30.6 ml/min Glucose 102 (74-106) mg/dL Calcium 8.3 L (8.5-10.1) mg/dL Total Bilirubin 0.3 (0.2-1.0) mg/dL AST 22 (15-37) IU/L ALT 23 (14-63) IU/L Alkaline Phosphatase 100 (46-116) U/L Troponin I < 0.050 (0.000-0.056) ng/mL Total Protein 7.5 (6.4-8.2) g/dL Albumin 3.6 (3.4-5.0) g/dL Globulin 3.9 (2.6-4.0) g/dL Albumin/Globulin Ratio 0.9 (0.9-1.6) TSH, Ultra Sensitive 4.97 H (0.36-3.74) uIU/mL Urine Color YELLOW Urine Appearance CLEAR Urine pH 5.5 (5.0-8.0) Ur Specific [place] 1.015 (1.001-1.035) Urine Protein NEGATIVE (NEGATIVE) mg/dL Urine Glucose (UA) NEGATIVE (NEGATIVE) mg/dL Urine Ketones NEGATIVE (NEGATIVE) mg/dL Urine Occult Blood TRACE-INTACT H (NEGATIVE) Urine Nitrite NEGATIVE (NEGATIVE) Urine Bilirubin NEGATIVE (NEGATIVE) Urine Urobilinogen 0.2 (<2.0) EU/dL Ur Leukocyte Esterase NEGATIVE (NEGATIVE) Urine RBC 0-2 (0-2/HPF) Urine WBC 0-1 (0-5/HPF) Ur Epithelial Cells RARE (NONE-FEW) Urine Bacteria RARE (NEGATIVE) Meds: Medications Generic Name Dose Route Start Last Admin Trade Name Freq PRN Reason Stop Dose Admin Sodium Chloride 10 ml 03/12/21 23:13 Sodium Chloride 0.9% 10 Ml Syringe FLUSH ASDIRECTED PRN Keep Vein Open Sodium Chloride 2.5 ml 03/12/21 23:13 Sodium Chloride 0.9% 2.5 Ml Syringe FLUSH ASDIRECTED PRN Keep Vein Open Discontinued Medications Generic Name Dose Route Start Last Admin Trade Name Freq PRN Reason Stop Dose Admin Quetiapine Fumarate 50 mg 03/13/21 01:50 Quetiapine 25 Mg Tab PO 03/13/21 01:51 ONETIME ONE Departure - Departure Time of Disposition: 01:53 Disposition: Home, Self-Care 01 Condition: Good Clinical Impression: Anxiety, Memory loss - Discharge Information Prescriptions: QUEtiapine [SEROquel] 50 mg PO BID PRN #15 tablet PRN Reason: Agitation Referrals: Small,Richard Campos, MD [Primary Care Provider] - Forms: ED Department Discharge Additional Instructions: Try the medicines to help her relax. Call her doctor Sunday and arrange for further evaluation including possible evaluation by a neurologist. [facility] - Neurology Professional Building [address] [facility], [address] [place] [address] [facility] [address] [place] [id number] [facility] [address] [place] [id number] Sepsis Event Note (ED) - Focused Exam Vital Signs: Vital Signs Temp Pulse Resp BP Pulse Ox 03/12/21 23:06 36.8 C 58 L 18 184/80 H 95 - My Orders Last 24 Hours: My Active Orders 03/12/21 23:13 Sodium Chloride 0.9% [Saline Flush] 10 ml FLUSH ASDIRECTED PRN Sodium Chloride 0.9% [Saline Flush] 2.5 ml FLUSH ASDIRECTED PRN Saline Lock Insert [OM.PC] Stat - Assessment/Plan Last 24 Hours: My Active Orders 03/12/21 23:13 Sodium Chloride 0.9% [Saline Flush] 10 ml FLUSH ASDIRECTED PRN Sodium Chloride 0.9% [Saline Flush] 2.5 ml FLUSH ASDIRECTED PRN Saline Lock Insert [OM.PC] Stat
[2021-03-13 00:16] LABS: BLOOD UREA NITROGEN,BUN 33 mg/dL (7.0-18.0); CARBON DIOXIDE,CO2 25.8 mmol/L (21.0-32.0); CHLORIDE,CL 99 mmol/L (98-107); GLUCOSE RANDOM 102 mg/dL (74-106); POTASSIUM,K 4.5 mmol/L (3.5-5.1); SODIUM,NA 133 mmol/L (136-145)
--- NOTE | 2021-03-13 00:51 | CT ---
INDICATION: Confusion TECHNIQUE: CT Head without i.v. contrast. Coronal and sagittal reformats were obtained. COMPARISON: None FINDINGS: CSF space: Unremarkable for age. Brain: No evidence of mass, acute infarction or hemorrhage is seen. No mass-effect or midline shift is seen. Mild diffuse cortical atrophy is noted. The brain parenchyma is otherwise normal in appearance with preservation of the wallace-white matter junction. Calvarium: The visualized paranasal sinuses are well aerated. The mastoid air cells are clear. The visualized orbits are grossly unremarkable. The patient is status post prior bilateral cataract removal. The calvarium is unremarkable in appearance with no fractures identified. IMPRESSION: 1. No evidence of acute infarction, intracranial hemorrhage, or mass-effect seen. Please note that all CT scans at this facility use dose modulation, iterative reconstruction, and/or weight-based dosing when appropriate to reduce radiation dose to as low as reasonably achievable. Dictated by: Frederick Rosario MD @ 03/13/2021 00:49:16 (Electronically Signed)
[2021-03-13] MEDS: QUEtiapine 25 MG Tab PO ONE (02:19)
== END 2021-03-13 02:35 | disposition home or self-care (01) ==
LOC: MW.ED 23:01
DX: F41.9 Anxiety disorder, unspecified (principal); I25.10 Atherosclerotic heart disease of native coronary artery without angina pectoris; R41.3 Other amnesia; E78.00 Pure hypercholesterolemia, unspecified; I10 Essential (primary) hypertension; Z79.899 Other long term (current) drug therapy; Z86.73 Personal history of transient ischemic attack (TIA), and cerebral infarction without residual deficits; Z88.1 Allergy status to other antibiotic agents
CPT/HCPCS: 36415; 70450; 80053; 81001; 84443; 84484; 85025; 93005; 99285; A9270

== ENCOUNTER 2021-05-06 16:01 | Emergency (ER) | payer MEDICARE, OTHER | END 2021-05-06 18:55 | disposition left against medical advice (07) | LOC: MW.ED 16:01 | DX: Z53.21 Procedure and treatment not carried out due to patient leaving prior to being seen by health care provider (principal) ==

== ENCOUNTER 2023-07-07 17:58 | Inpatient (IN) | payer MEDICARE, OTHER ==
[2023-07-07] MEDS ORDERED: Morphine 4 MG/ML Syringe IVPUSH ONE (18:08)
[2023-07-07] MEDS ORDERED: Ondansetron 4 MG/2 ML SDV IVPUSH ONE (18:08)
[2023-07-07] MEDS ORDERED: Sodium Chloride 0.9% 1,000 ML IV ONE (18:08)
[2023-07-07 19:05] LABS: BICARBONATE,VENOUS 24 mEq/L (23-28); PCO2 VENOUS 48 mmHG (41-51); PH,VENOUS 7.31 (7.31-7.41)
[2023-07-07 19:06] LABS: BASOPHILS ABSOLUTE AUTO 0.03 K/uL (0.00-0.20); BASOPHILS PERCENT AUTO 0.3 % (0.0-1.0); EOSINOPHILS ABSOLUTE AUTO 0.05 K/uL (0.00-0.45); EOSINOPHILS PERCENT AUTO 0.6 % (0.0-6.0); HEMATOCRIT 45.6 % (37.0-47.0); HEMOGLOBIN 15.7 g/dL (12.0-16.0); IMMATURE GRAN ABSOLUTE AUTO 0.02 K/uL (0.00-0.05); IMMATURE GRAN PERCENT AUTO 0.2 % (0.0-0.4); LYMPHOCYTES ABSOLUTE AUTO 1.84 K/uL (1.00-4.80); LYMPHOCYTES PERCENT AUTO 21.2 % (24.0-44.0); MEAN CORPUSCULAR HEMOGLOBIN 32.3 pg (28.0-32.0); MEAN CORPUSCULAR HGB CONC 34.4 g/dL (32.0-36.0); MEAN CORPUSCULAR VOLUME 93.8 fL (83.0-99.0); MEAN PLATELET VOLUME 11.5 fL (9.4-12.3); MONOCYTES ABSOLUTE AUTO 0.74 K/uL (0.00-0.80); MONOCYTES PERCENT AUTO 8.5 % (0.0-8.0); NEUTROPHILS PERCENT AUTO 69.2 % (41.0-71.0); PLATELET COUNT,PLT 107 K/uL (150-400); RED BLOOD CELL COUNT 4.86 M/uL (4.10-5.30); WHITE BLOOD CELL COUNT,WBC 8.68 K/uL (3.9-11.3)
[2023-07-07 19:09] LABS: PO2 VENOUS < 30 mmHG
[2023-07-07 19:19] LABS: INR 1.1 (0.86-1.11); PTT,PARTIAL THROMBOPLSTIN TIME 27.6 SEC (23.9-30.7)
[2023-07-07 19:38] LABS: LACTIC ACID 1.3 mmol/L (0.4-2.0)
[2023-07-07 19:47] LABS: A/G RATIO 0.7 (0.9-1.6); ALBUMIN 3.4 g/dL (3.4-5.0); BILIRUBIN TOTAL 1.1 mg/dL (0.2-1.0); CALCIUM 9.5 mg/dL (8.5-10.1); CARBON DIOXIDE,CO2 22.5 mmol/L (21.0-32.0); CREATININE 2.2 mg/dL (0.6-1.0); EST CRCL DRUG DOSING (CG) 14.12 mL/min; MAGNESIUM 2.6 mg/dL (1.8-2.4); POTASSIUM,K 4.7 mmol/L (3.5-5.1); PROTEIN TOTAL,TP 8.2 g/dL (6.4-8.2)
[2023-07-07 19:49] LABS: CORONAVIRUS COVID-19 NAA NEGATIVE (NEGATIVE); INFLUENZA A NAA NEGATIVE (NEGATIVE); INFLUENZA B NAA NEGATIVE (NEGATIVE); RESPIRATORY SYNCYTIAL VIR NAA NEGATIVE (NEGATIVE)
[2023-07-07] MEDS ORDERED: Iopamidol 755 MG/ML 500 ML Multipack Bottle IVPUSH ONE (20:23)
[2023-07-07 21:33] LABS: APPEARANCE,URINE CLOUDY; COLOR,URINE YELLOW; GLUCOSE,URINE NEGATIVE (NEGATIVE); KETONES,URINE TRACE mg/dL (NEGATIVE); LEUKOCYTE ESTERASE,URINE MODERATE (NEGATIVE); NITRITE,URINE NEGATIVE (NEGATIVE); OCCULT BLOOD,URINE MODERATE (NEGATIVE); PH,URINE 5.5 (5.0-8.0); PROTEIN,URINE 30 mg/dL (NEGATIVE)
[2023-07-07 21:52] LABS: BILIRUBIN,URINE SMALL (NEGATIVE)
[2023-07-07 21:53] LABS: BACTERIA,URINE 3+ (NEGATIVE); HYALINE CASTS,URINE 0-1 (0-2/LPF); MUCUS,URINE LIGHT (NONE-MOD); SQUAMOUS EPITHELIAL CELLS,UR OCCASIONAL; WBC,URINE TO NUMEROUS TO COUNT (0-5/HPF)
[2023-07-07] MEDS: cefTRIAXone 500 MG in Sodium Chloride 0.9% 50 ML IV SCH ×2 (22:17→22:19)
[2023-07-07] MEDS ORDERED: cefTRIAXone 500 MG in Sodium Chloride 0.9% 50 ML IV STA (22:17)
[2023-07-07] MEDS ORDERED: cefTRIAXone 500 MG Vial ONE (22:23)
[2023-07-07] MEDS ORDERED: Sodium Chloride 0.9% 50 ML ONE (22:23)
[2023-07-08] MEDS: Sodium Chloride 0.9% 1,000 ML IV SCH ×2 (02:10→11:14)
[2023-07-08 06:36] LABS: A/G RATIO 0.7 (0.9-1.6); BILIRUBIN TOTAL 0.7 mg/dL (0.2-1.0); CALCIUM 8.8 mg/dL (8.5-10.1); CREATININE 1.7 mg/dL (0.6-1.0); EST CRCL DRUG DOSING (CG) 18.05 mL/min; POTASSIUM,K 5.2 mmol/L (3.5-5.1); PROTEIN TOTAL,TP 7.2 g/dL (6.4-8.2)
[2023-07-08 07:10] LABS: BASOPHILS ABSOLUTE AUTO 0.02 K/uL (0.00-0.20); BASOPHILS PERCENT AUTO 0.2 % (0.0-1.0); EOSINOPHILS ABSOLUTE AUTO 0.08 K/uL (0.00-0.45); EOSINOPHILS PERCENT AUTO 0.9 % (0.0-6.0); HEMATOCRIT 42.2 % (37.0-47.0); HEMOGLOBIN 14.5 g/dL (12.0-16.0); IMMATURE GRAN ABSOLUTE AUTO 0.03 K/uL (0.00-0.05); IMMATURE GRAN PERCENT AUTO 0.3 % (0.0-0.4); LYMPHOCYTES PERCENT AUTO 20.8 % (24.0-44.0); MEAN CORPUSCULAR HEMOGLOBIN 32.7 pg (28.0-32.0); MEAN CORPUSCULAR HGB CONC 34.4 g/dL (32.0-36.0); MONOCYTES ABSOLUTE AUTO 1.03 K/uL (0.00-0.80); MONOCYTES PERCENT AUTO 11.3 % (0.0-8.0); NEUTROPHILS ABSOLUTE AUTO 6.09 K/uL (1.80-7.70); NEUTROPHILS PERCENT AUTO 66.5 % (41.0-71.0); RED BLOOD CELL COUNT 4.44 M/uL (4.10-5.30); WHITE BLOOD CELL COUNT,WBC 9.15 K/uL (3.9-11.3)
[2023-07-08 07:18] LABS: PLATELET COUNT,PLT 108 K/uL (150-400)
[2023-07-08] MEDS: Polyethylene Glycol 3350 Powder 17 GM Packet PO SCH ×2 (13:14→18:02)
[2023-07-08] MEDS: cefTRIAXone 1 GM in Sodium Chloride 0.9% 50 ML IV SCH (21:22)
[2023-07-09] MEDS: Sodium Chloride 0.9% 1,000 ML IV SCH ×2 (02:06→16:43)
[2023-07-09] MEDS: Polyethylene Glycol 3350 Powder 17 GM Packet PO SCH (08:16)
[2023-07-09] MEDS: QUEtiapine 100 MG Tab PO PRN ×2 (09:50→10:17)
[2023-07-09] MEDS ORDERED: Bisacodyl 5 MG Tab PO ONE (16:46)
[2023-07-09] MEDS: cefTRIAXone 1 GM in Sodium Chloride 0.9% 50 ML IV SCH (20:59)
[2023-07-09 23:11] LABS: CALCIUM 8.2 mg/dL (8.5-10.1); CREATININE 1.2 mg/dL (0.6-1.0); EST CRCL DRUG DOSING (CG) 25.58 mL/min; POTASSIUM,K 3.7 mmol/L (3.5-5.1)
[2023-07-09 23:13] LABS: BASOPHILS ABSOLUTE AUTO 0.02 K/uL (0.00-0.20); BASOPHILS PERCENT AUTO 0.2 % (0.0-1.0); EOSINOPHILS ABSOLUTE AUTO 0.09 K/uL (0.00-0.45); EOSINOPHILS PERCENT AUTO 1.1 % (0.0-6.0); HEMATOCRIT 38.3 % (37.0-47.0); HEMOGLOBIN 13.1 g/dL (12.0-16.0); IMMATURE GRAN ABSOLUTE AUTO 0.03 K/uL (0.00-0.05); IMMATURE GRAN PERCENT AUTO 0.4 % (0.0-0.4); LYMPHOCYTES ABSOLUTE AUTO 1.59 K/uL (1.00-4.80); LYMPHOCYTES PERCENT AUTO 19.4 % (24.0-44.0); MEAN CORPUSCULAR HGB CONC 34.2 g/dL (32.0-36.0); MEAN CORPUSCULAR VOLUME 93.6 fL (83.0-99.0); MONOCYTES ABSOLUTE AUTO 0.89 K/uL (0.00-0.80); MONOCYTES PERCENT AUTO 10.9 % (0.0-8.0); NEUTROPHILS ABSOLUTE AUTO 5.56 K/uL (1.80-7.70); RED BLOOD CELL COUNT 4.09 M/uL (4.10-5.30); WHITE BLOOD CELL COUNT,WBC 8.18 K/uL (3.9-11.3)
[2023-07-09 23:15] LABS: PLATELET COUNT,PLT 94 K/uL (150-400)
[2023-07-10 05:57] LABS: BASOPHILS ABSOLUTE AUTO 0.03 K/uL (0.00-0.20); BASOPHILS PERCENT AUTO 0.3 % (0.0-1.0); EOSINOPHILS ABSOLUTE AUTO 0.09 K/uL (0.00-0.45); HEMATOCRIT 40.3 % (37.0-47.0); HEMOGLOBIN 13.8 g/dL (12.0-16.0); IMMATURE GRAN ABSOLUTE AUTO 0.06 K/uL (0.00-0.05); IMMATURE GRAN PERCENT AUTO 0.7 % (0.0-0.4); LYMPHOCYTES ABSOLUTE AUTO 1.75 K/uL (1.00-4.80); LYMPHOCYTES PERCENT AUTO 19.6 % (24.0-44.0); MEAN CORPUSCULAR HEMOGLOBIN 32.9 pg (28.0-32.0); MEAN CORPUSCULAR HGB CONC 34.2 g/dL (32.0-36.0); MEAN PLATELET VOLUME 11.8 fL (9.4-12.3); MONOCYTES PERCENT AUTO 11.2 % (0.0-8.0); NEUTROPHILS ABSOLUTE AUTO 5.98 K/uL (1.80-7.70); NEUTROPHILS PERCENT AUTO 67.2 % (41.0-71.0); WHITE BLOOD CELL COUNT,WBC 8.91 K/uL (3.9-11.3)
[2023-07-10 06:15] LABS: CALCIUM 8.1 mg/dL (8.5-10.1); CARBON DIOXIDE,CO2 25.7 mmol/L (21.0-32.0); CREATININE 1.2 mg/dL (0.6-1.0); EST CRCL DRUG DOSING (CG) 25.58 mL/min; POTASSIUM,K 3.5 mmol/L (3.5-5.1)
[2023-07-10 06:31] LABS: PLATELET COUNT,PLT 86 K/uL (150-400)
[2023-07-10] MEDS: Sodium Chloride 0.9% 1,000 ML IV SCH (07:47)
[2023-07-10] MEDS: Polyethylene Glycol 3350 Powder 17 GM Packet PO SCH (08:58)
[2023-07-10] MEDS: Sodium Chloride 0.45% 1,000 ML IV SCH (10:33)
[2023-07-10] MEDS: Sennosides 8.6 MG Tab PO SCH (10:33)
[2023-07-10] MEDS: Bisacodyl 5 MG Tab PO SCH (10:33)
[2023-07-10] MEDS: cefTRIAXone 1 GM in Sodium Chloride 0.9% 50 ML IV SCH (22:31)
[2023-07-11] MEDS: Sodium Chloride 0.45% 1,000 ML IV SCH ×2 (00:14→13:56)
[2023-07-11 05:39] LABS: BASOPHILS ABSOLUTE AUTO 0.03 K/uL (0.00-0.20); BASOPHILS PERCENT AUTO 0.4 % (0.0-1.0); EOSINOPHILS ABSOLUTE AUTO 0.16 K/uL (0.00-0.45); EOSINOPHILS PERCENT AUTO 1.9 % (0.0-6.0); HEMATOCRIT 38.2 % (37.0-47.0); HEMOGLOBIN 13.3 g/dL (12.0-16.0); IMMATURE GRAN ABSOLUTE AUTO 0.05 K/uL (0.00-0.05); IMMATURE GRAN PERCENT AUTO 0.6 % (0.0-0.4); LYMPHOCYTES ABSOLUTE AUTO 1.96 K/uL (1.00-4.80); LYMPHOCYTES PERCENT AUTO 23.2 % (24.0-44.0); MEAN CORPUSCULAR HEMOGLOBIN 32.4 pg (28.0-32.0); MEAN CORPUSCULAR HGB CONC 34.8 g/dL (32.0-36.0); MEAN CORPUSCULAR VOLUME 92.9 fL (83.0-99.0); MEAN PLATELET VOLUME 11.8 fL (9.4-12.3); MONOCYTES ABSOLUTE AUTO 0.94 K/uL (0.00-0.80); MONOCYTES PERCENT AUTO 11.1 % (0.0-8.0); NEUTROPHILS ABSOLUTE AUTO 5.32 K/uL (1.80-7.70); NEUTROPHILS PERCENT AUTO 62.8 % (41.0-71.0); PLATELET COUNT,PLT 88 K/uL (150-400); RED BLOOD CELL COUNT 4.11 M/uL (4.10-5.30); WHITE BLOOD CELL COUNT,WBC 8.46 K/uL (3.9-11.3)
[2023-07-11 06:02] LABS: A/G RATIO 0.6 (0.9-1.6); ALBUMIN 2.1 g/dL (3.4-5.0); BILIRUBIN TOTAL 0.6 mg/dL (0.2-1.0); CALCIUM 7.5 mg/dL (8.5-10.1); CARBON DIOXIDE,CO2 26.3 mmol/L (21.0-32.0); EST CRCL DRUG DOSING (CG) 30.69 mL/min; POTASSIUM,K 2.9 mmol/L (3.5-5.1); PROTEIN TOTAL,TP 5.5 g/dL (6.4-8.2)
[2023-07-11] MEDS ORDERED: Potassium Chloride 20 MEQ Tab.ER PO ONE (07:57)
[2023-07-11] MEDS: Sennosides 8.6 MG Tab PO SCH (08:30)
[2023-07-11] MEDS: Polyethylene Glycol 3350 Powder 17 GM Packet PO SCH (08:30)
[2023-07-11] MEDS: Bisacodyl 5 MG Tab PO SCH (08:30)
[2023-07-11] MEDS: Potassium Chloride 100 ML IV SCH ×2 (11:22→14:00)
[2023-07-11] MEDS ORDERED: Potassium Chloride 10 MEQ in Premix Bag 4 BAG IV ONE (15:31)
[2023-07-11] MEDS: Potassium Chloride 10 MEQ in Premix Bag 1 BAG IV SCH ×2 (16:50→18:13)
[2023-07-11] MEDS: QUEtiapine 100 MG Tab PO PRN (20:50)
[2023-07-11] MEDS ORDERED: Magnesium Sulfate/Water 2 GM/50 ML Premix Bag IV ONE (21:57)
[2023-07-11] MEDS: cefTRIAXone 1 GM in Sodium Chloride 0.9% 50 ML IV SCH (23:34)
[2023-07-12] MEDS: Sodium Chloride 0.45% 1,000 ML IV SCH ×2 (05:17→19:24)
[2023-07-12 07:20] LABS: BASOPHILS ABSOLUTE AUTO 0.02 K/uL (0.00-0.20); BASOPHILS PERCENT AUTO 0.3 % (0.0-1.0); EOSINOPHILS ABSOLUTE AUTO 0.15 K/uL (0.00-0.45); EOSINOPHILS PERCENT AUTO 2.1 % (0.0-6.0); HEMATOCRIT 41.2 % (37.0-47.0); HEMOGLOBIN 14.2 g/dL (12.0-16.0); IMMATURE GRAN ABSOLUTE AUTO 0.05 K/uL (0.00-0.05); IMMATURE GRAN PERCENT AUTO 0.7 % (0.0-0.4); MEAN CORPUSCULAR HEMOGLOBIN 32.1 pg (28.0-32.0); MEAN CORPUSCULAR HGB CONC 34.5 g/dL (32.0-36.0); MEAN PLATELET VOLUME 12.1 fL (9.4-12.3); MONOCYTES ABSOLUTE AUTO 0.83 K/uL (0.00-0.80); MONOCYTES PERCENT AUTO 11.4 % (0.0-8.0); NEUTROPHILS ABSOLUTE AUTO 4.36 K/uL (1.80-7.70); NEUTROPHILS PERCENT AUTO 59.5 % (41.0-71.0); PLATELET COUNT,PLT 100 K/uL (150-400); RED BLOOD CELL COUNT 4.43 M/uL (4.10-5.30); WHITE BLOOD CELL COUNT,WBC 7.31 K/uL (3.9-11.3)
[2023-07-12 07:21] LABS: A/G RATIO 0.6 (0.9-1.6); ALBUMIN 2.3 g/dL (3.4-5.0); BILIRUBIN TOTAL 0.5 mg/dL (0.2-1.0); CALCIUM 7.9 mg/dL (8.5-10.1); CARBON DIOXIDE,CO2 24.6 mmol/L (21.0-32.0); CREATININE 0.9 mg/dL (0.6-1.0); EST CRCL DRUG DOSING (CG) 34.1 mL/min; MAGNESIUM 2.3 mg/dL (1.8-2.4); POTASSIUM,K 3.7 mmol/L (3.5-5.1); PROTEIN TOTAL,TP 6.1 g/dL (6.4-8.2)
[2023-07-12] MEDS: Sennosides 8.6 MG Tab PO SCH (09:01)
[2023-07-12] MEDS: Polyethylene Glycol 3350 Powder 17 GM Packet PO SCH (09:01)
[2023-07-12] MEDS: Bisacodyl 5 MG Tab PO SCH (09:01)
[2023-07-13 05:45] LABS: BASOPHILS ABSOLUTE AUTO 0.02 K/uL (0.00-0.20); BASOPHILS PERCENT AUTO 0.2 % (0.0-1.0); EOSINOPHILS ABSOLUTE AUTO 0.16 K/uL (0.00-0.45); EOSINOPHILS PERCENT AUTO 1.5 % (0.0-6.0); HEMOGLOBIN 13.2 g/dL (12.0-16.0); IMMATURE GRAN ABSOLUTE AUTO 0.04 K/uL (0.00-0.05); IMMATURE GRAN PERCENT AUTO 0.4 % (0.0-0.4); LYMPHOCYTES ABSOLUTE AUTO 1.83 K/uL (1.00-4.80); LYMPHOCYTES PERCENT AUTO 17.2 % (24.0-44.0); MEAN CORPUSCULAR HEMOGLOBIN 32.3 pg (28.0-32.0); MEAN CORPUSCULAR HGB CONC 34.7 g/dL (32.0-36.0); MEAN CORPUSCULAR VOLUME 92.9 fL (83.0-99.0); MEAN PLATELET VOLUME 10.7 fL (9.4-12.3); MONOCYTES ABSOLUTE AUTO 0.99 K/uL (0.00-0.80); MONOCYTES PERCENT AUTO 9.3 % (0.0-8.0); NEUTROPHILS ABSOLUTE AUTO 7.59 K/uL (1.80-7.70); NEUTROPHILS PERCENT AUTO 71.4 % (41.0-71.0); PLATELET COUNT,PLT 117 K/uL (150-400); RED BLOOD CELL COUNT 4.09 M/uL (4.10-5.30); WHITE BLOOD CELL COUNT,WBC 10.63 K/uL (3.9-11.3)
[2023-07-13 06:14] LABS: A/G RATIO 0.6 (0.9-1.6); ALBUMIN 2.2 g/dL (3.4-5.0); BILIRUBIN TOTAL 0.6 mg/dL (0.2-1.0); CALCIUM 7.7 mg/dL (8.5-10.1); CARBON DIOXIDE,CO2 22.8 mmol/L (21.0-32.0); EST CRCL DRUG DOSING (CG) 30.69 mL/min; POTASSIUM,K 3.5 mmol/L (3.5-5.1); PROTEIN TOTAL,TP 5.9 g/dL (6.4-8.2)
[2023-07-13] MEDS: Sennosides 8.6 MG Tab PO SCH (09:24)
[2023-07-13] MEDS: Bisacodyl 5 MG Tab PO SCH (09:24)
[2023-07-13] MEDS: Polyethylene Glycol 3350 Powder 17 GM Packet PO SCH (09:24)
[2023-07-14 07:07] LABS: BASOPHILS ABSOLUTE AUTO 0.01 K/uL (0.00-0.20); BASOPHILS PERCENT AUTO 0.2 % (0.0-1.0); EOSINOPHILS ABSOLUTE AUTO 0.17 K/uL (0.00-0.45); EOSINOPHILS PERCENT AUTO 2.6 % (0.0-6.0); HEMATOCRIT 36.3 % (37.0-47.0); HEMOGLOBIN 12.4 g/dL (12.0-16.0); IMMATURE GRAN ABSOLUTE AUTO 0.02 K/uL (0.00-0.05); IMMATURE GRAN PERCENT AUTO 0.3 % (0.0-0.4); LYMPHOCYTES ABSOLUTE AUTO 1.34 K/uL (1.00-4.80); LYMPHOCYTES PERCENT AUTO 20.6 % (24.0-44.0); MEAN CORPUSCULAR HGB CONC 34.2 g/dL (32.0-36.0); MEAN CORPUSCULAR VOLUME 93.8 fL (83.0-99.0); MEAN PLATELET VOLUME 11.5 fL (9.4-12.3); MONOCYTES ABSOLUTE AUTO 0.77 K/uL (0.00-0.80); MONOCYTES PERCENT AUTO 11.8 % (0.0-8.0); NEUTROPHILS ABSOLUTE AUTO 4.19 K/uL (1.80-7.70); NEUTROPHILS PERCENT AUTO 64.5 % (41.0-71.0); PLATELET COUNT,PLT 114 K/uL (150-400); RED BLOOD CELL COUNT 3.87 M/uL (4.10-5.30)
[2023-07-14 07:35] LABS: A/G RATIO 0.6 (0.9-1.6); BILIRUBIN TOTAL 0.4 mg/dL (0.2-1.0); CALCIUM 7.8 mg/dL (8.5-10.1); CARBON DIOXIDE,CO2 25.8 mmol/L (21.0-32.0); EST CRCL DRUG DOSING (CG) 30.69 mL/min; POTASSIUM,K 3.1 mmol/L (3.5-5.1); PROTEIN TOTAL,TP 5.5 g/dL (6.4-8.2)
[2023-07-14] MEDS: Bisacodyl 5 MG Tab PO SCH (10:10)
[2023-07-14] MEDS: Polyethylene Glycol 3350 Powder 17 GM Packet PO SCH (10:10)
[2023-07-14] MEDS: Sennosides 8.6 MG Tab PO SCH (10:10)
[2023-07-14] MEDS ORDERED: NS with KCl 40mEq 1,000 ML IV SCH (10:30)
[2023-07-14] MEDS: QUEtiapine 100 MG Tab PO PRN (21:58)
[2023-07-15] MEDS ORDERED: Haloperidol Lactate 5 MG/ML SDV IM ONE (00:08)
[2023-07-15 06:11] LABS: BASOPHILS ABSOLUTE AUTO 0.02 K/uL (0.00-0.20); BASOPHILS PERCENT AUTO 0.3 % (0.0-1.0); EOSINOPHILS ABSOLUTE AUTO 0.12 K/uL (0.00-0.45); HEMATOCRIT 36.8 % (37.0-47.0); HEMOGLOBIN 12.4 g/dL (12.0-16.0); IMMATURE GRAN ABSOLUTE AUTO 0.02 K/uL (0.00-0.05); IMMATURE GRAN PERCENT AUTO 0.3 % (0.0-0.4); LYMPHOCYTES ABSOLUTE AUTO 0.97 K/uL (1.00-4.80); LYMPHOCYTES PERCENT AUTO 16.4 % (24.0-44.0); MEAN CORPUSCULAR HEMOGLOBIN 32.1 pg (28.0-32.0); MEAN CORPUSCULAR HGB CONC 33.7 g/dL (32.0-36.0); MEAN CORPUSCULAR VOLUME 95.3 fL (83.0-99.0); MEAN PLATELET VOLUME 10.9 fL (9.4-12.3); MONOCYTES ABSOLUTE AUTO 0.69 K/uL (0.00-0.80); MONOCYTES PERCENT AUTO 11.7 % (0.0-8.0); NEUTROPHILS ABSOLUTE AUTO 4.09 K/uL (1.80-7.70); NEUTROPHILS PERCENT AUTO 69.3 % (41.0-71.0); PLATELET COUNT,PLT 119 K/uL (150-400); RED BLOOD CELL COUNT 3.86 M/uL (4.10-5.30); WHITE BLOOD CELL COUNT,WBC 5.91 K/uL (3.9-11.3)
[2023-07-15 06:29] LABS: A/G RATIO 0.6 (0.9-1.6); ALBUMIN 2.1 g/dL (3.4-5.0); BILIRUBIN TOTAL 0.5 mg/dL (0.2-1.0); EST CRCL DRUG DOSING (CG) 30.69 mL/min; PROTEIN TOTAL,TP 5.6 g/dL (6.4-8.2)
[2023-07-15] MEDS: Polyethylene Glycol 3350 Powder 17 GM Packet PO SCH (09:55)
[2023-07-15] MEDS: Sennosides 8.6 MG Tab PO SCH (09:55)
[2023-07-15] MEDS: Bisacodyl 5 MG Tab PO SCH (09:55)
[2023-07-16 06:34] LABS: HEMATOCRIT 37.7 % (37.0-47.0); HEMOGLOBIN 13.2 g/dL (12.0-16.0); MEAN CORPUSCULAR HEMOGLOBIN 32.8 pg (28.0-32.0); MEAN CORPUSCULAR VOLUME 93.8 fL (83.0-99.0); MEAN PLATELET VOLUME 11.1 fL (9.4-12.3); PLATELET COUNT,PLT 123 K/uL (150-400); RED BLOOD CELL COUNT 4.02 M/uL (4.10-5.30); WHITE BLOOD CELL COUNT,WBC 5.02 K/uL (3.9-11.3)
[2023-07-16 06:43] LABS: CALCIUM 8.4 mg/dL (8.5-10.1); CARBON DIOXIDE,CO2 24.9 mmol/L (21.0-32.0); EST CRCL DRUG DOSING (CG) 30.69 mL/min; POTASSIUM,K 3.7 mmol/L (3.5-5.1)
[2023-07-16 07:11] LABS: LYMPHOCYTES ABSOLUTE MAN 0.85 K/uL (1.00-4.80); LYMPHOCYTES PERCENT MAN 17 % (24-44); MONOCYTES PERCENT MAN 20 % (0-8); SEG NEUTROPHILS ABSOLUTE MAN 3.16 K/uL (1.80-7.70); SEG NEUTROPHILS PERCENT MAN 63 % (41-71)
[2023-07-16] MEDS: Sennosides 8.6 MG Tab PO SCH ×2 (09:49→10:03)
[2023-07-16] MEDS: Polyethylene Glycol 3350 Powder 17 GM Packet PO SCH ×2 (09:50→10:02)
[2023-07-16] MEDS: Bisacodyl 5 MG Tab PO SCH (09:50)
[2023-07-16] MEDS ORDERED: D5 1/2 NS w/ 20 mEq/L KCl 1,000 ML IV SCH (12:15)
[2023-07-16] MEDS: QUEtiapine 100 MG Tab PO PRN (22:30)
[2023-07-17] MEDS: Dextrose 5%-0.45% NaCl 1,000 ML IV SCH ×2 (06:03→16:00)
[2023-07-17 06:20] LABS: HEMATOCRIT 39.3 % (37.0-47.0); HEMOGLOBIN 13.6 g/dL (12.0-16.0); MEAN CORPUSCULAR HEMOGLOBIN 32.1 pg (28.0-32.0); MEAN CORPUSCULAR HGB CONC 34.6 g/dL (32.0-36.0); MEAN CORPUSCULAR VOLUME 92.7 fL (83.0-99.0); MEAN PLATELET VOLUME 10.6 fL (9.4-12.3); PLATELET COUNT,PLT 124 K/uL (150-400); RED BLOOD CELL COUNT 4.24 M/uL (4.10-5.30); WHITE BLOOD CELL COUNT,WBC 5.35 K/uL (3.9-11.3)
[2023-07-17 06:59] LABS: LYMPHOCYTES ABSOLUTE MAN 0.96 K/uL (1.00-4.80); LYMPHOCYTES PERCENT MAN 18 % (24-44); MONOCYTES ABSOLUTE MAN 1.23 K/uL (0.00-0.80); MONOCYTES PERCENT MAN 23 % (0-8); SEG NEUTROPHILS ABSOLUTE MAN 3.16 K/uL (1.80-7.70); SEG NEUTROPHILS PERCENT MAN 59 % (41-71)
[2023-07-17 07:08] LABS: A/G RATIO 0.6 (0.9-1.6); ALBUMIN 2.2 g/dL (3.4-5.0); BILIRUBIN TOTAL 0.4 mg/dL (0.2-1.0); CALCIUM 8.1 mg/dL (8.5-10.1); CARBON DIOXIDE,CO2 31.4 mmol/L (21.0-32.0); EST CRCL DRUG DOSING (CG) 30.69 mL/min; POTASSIUM,K 3.7 mmol/L (3.5-5.1); PROTEIN TOTAL,TP 6.1 g/dL (6.4-8.2)
[2023-07-17] MEDS: Bisacodyl 5 MG Tab PO SCH (09:50)
[2023-07-17] MEDS: Sennosides 8.6 MG Tab PO SCH (09:52)
[2023-07-17] MEDS: Polyethylene Glycol 3350 Powder 17 GM Packet PO SCH (09:52)
[2023-07-17] MEDS: Enoxaparin 40 MG/0.4 ML Syringe SUBCUT SCH (11:17)
[2023-07-18 06:01] LABS: BASOPHILS ABSOLUTE AUTO 0.01 K/uL (0.00-0.20); BASOPHILS PERCENT AUTO 0.2 % (0.0-1.0); EOSINOPHILS ABSOLUTE AUTO 0.06 K/uL (0.00-0.45); EOSINOPHILS PERCENT AUTO 1.4 % (0.0-6.0); HEMATOCRIT 40.5 % (37.0-47.0); HEMOGLOBIN 14.3 g/dL (12.0-16.0); IMMATURE GRAN ABSOLUTE AUTO 0.02 K/uL (0.00-0.05); IMMATURE GRAN PERCENT AUTO 0.5 % (0.0-0.4); LYMPHOCYTES ABSOLUTE AUTO 1.54 K/uL (1.00-4.80); LYMPHOCYTES PERCENT AUTO 35.1 % (24.0-44.0); MEAN CORPUSCULAR HEMOGLOBIN 32.7 pg (28.0-32.0); MEAN CORPUSCULAR HGB CONC 35.3 g/dL (32.0-36.0); MEAN CORPUSCULAR VOLUME 92.7 fL (83.0-99.0); MEAN PLATELET VOLUME 10.8 fL (9.4-12.3); MONOCYTES PERCENT AUTO 15.9 % (0.0-8.0); NEUTROPHILS ABSOLUTE AUTO 2.06 K/uL (1.80-7.70); NEUTROPHILS PERCENT AUTO 46.9 % (41.0-71.0); PLATELET COUNT,PLT 110 K/uL (150-400); RED BLOOD CELL COUNT 4.37 M/uL (4.10-5.30); WHITE BLOOD CELL COUNT,WBC 4.39 K/uL (3.9-11.3)
[2023-07-18 06:27] LABS: A/G RATIO 0.6 (0.9-1.6); ALBUMIN 2.2 g/dL (3.4-5.0); BILIRUBIN TOTAL 0.4 mg/dL (0.2-1.0); CALCIUM 7.9 mg/dL (8.5-10.1); CARBON DIOXIDE,CO2 28.6 mmol/L (21.0-32.0); EST CRCL DRUG DOSING (CG) 30.69 mL/min; POTASSIUM,K 3.6 mmol/L (3.5-5.1)
[2023-07-18] MEDS: Sennosides 8.6 MG Tab PO SCH (09:52)
[2023-07-18] MEDS: Bisacodyl 5 MG Tab PO SCH (09:52)
[2023-07-18] MEDS: Polyethylene Glycol 3350 Powder 17 GM Packet PO SCH ×2 (09:53→10:10)
[2023-07-18] MEDS: Enoxaparin 40 MG/0.4 ML Syringe SUBCUT SCH (10:11)
[2023-07-18] MEDS: D5 1/2 NS w/ 20 mEq/L KCl 1,000 ML IV SCH (11:25)
[2023-07-19] MEDS: D5 1/2 NS w/ 20 mEq/L KCl 1,000 ML IV SCH (00:57)
[2023-07-19 06:12] LABS: BASOPHILS ABSOLUTE AUTO 0.01 K/uL (0.00-0.20); BASOPHILS PERCENT AUTO 0.2 % (0.0-1.0); EOSINOPHILS PERCENT AUTO 2.3 % (0.0-6.0); HEMATOCRIT 39.3 % (37.0-47.0); HEMOGLOBIN 13.5 g/dL (12.0-16.0); IMMATURE GRAN ABSOLUTE AUTO 0.01 K/uL (0.00-0.05); IMMATURE GRAN PERCENT AUTO 0.2 % (0.0-0.4); LYMPHOCYTES PERCENT AUTO 41.6 % (24.0-44.0); MEAN CORPUSCULAR HEMOGLOBIN 31.9 pg (28.0-32.0); MEAN CORPUSCULAR HGB CONC 34.4 g/dL (32.0-36.0); MEAN CORPUSCULAR VOLUME 92.9 fL (83.0-99.0); MEAN PLATELET VOLUME 10.8 fL (9.4-12.3); MONOCYTES ABSOLUTE AUTO 0.57 K/uL (0.00-0.80); MONOCYTES PERCENT AUTO 13.2 % (0.0-8.0); NEUTROPHILS ABSOLUTE AUTO 1.84 K/uL (1.80-7.70); NEUTROPHILS PERCENT AUTO 42.5 % (41.0-71.0); PLATELET COUNT,PLT 107 K/uL (150-400); RED BLOOD CELL COUNT 4.23 M/uL (4.10-5.30); WHITE BLOOD CELL COUNT,WBC 4.33 K/uL (3.9-11.3)
[2023-07-19 06:40] LABS: A/G RATIO 0.6 (0.9-1.6); ALBUMIN 2.1 g/dL (3.4-5.0); BILIRUBIN TOTAL 0.3 mg/dL (0.2-1.0); CALCIUM 7.7 mg/dL (8.5-10.1); CARBON DIOXIDE,CO2 26.9 mmol/L (21.0-32.0); CREATININE 1.1 mg/dL (0.6-1.0); EST CRCL DRUG DOSING (CG) 27.9 mL/min; POTASSIUM,K 3.6 mmol/L (3.5-5.1); PROTEIN TOTAL,TP 5.7 g/dL (6.4-8.2)
[2023-07-19] MEDS: Bisacodyl 5 MG Tab PO SCH (08:45)
[2023-07-19] MEDS: Sennosides 8.6 MG Tab PO SCH (08:45)
== END 2023-07-19 14:10 | disposition hospice, home (50) | DRG 683 ==
LOC: MW.ED 17:58 → MW.MS 22:19
PROVIDERS: ADMIT Internal Medicine; ATTEND Family Medicine
DX: N17.9 Acute kidney failure, unspecified (principal); N30.00 Acute cystitis without hematuria; K56.41 Fecal impaction; K52.89 Other specified noninfective gastroenteritis and colitis; H91.90 Unspecified hearing loss, unspecified ear; I25.10 Atherosclerotic heart disease of native coronary artery without angina pectoris; Z96.659 Presence of unspecified artificial knee joint; N39.0 Urinary tract infection, site not specified; Z51.5 Encounter for palliative care; E78.00 Pure hypercholesterolemia, unspecified; F03.C0 Unspecified dementia, severe, without behavioral disturbance, psychotic disturbance, mood disturbance, and anxiety; I10 Essential (primary) hypertension; M19.90 Unspecified osteoarthritis, unspecified site; Z86.73 Personal history of transient ischemic attack (TIA), and cerebral infarction without residual deficits; Z95.4 Presence of other heart-valve replacement; Z98.49 Cataract extraction status, unspecified eye; I25.810 Atherosclerosis of coronary artery bypass graft(s) without angina pectoris; Z79.02 Long term (current) use of antithrombotics/antiplatelets; Z95.1 Presence of aortocoronary bypass graft; Z90.49 Acquired absence of other specified parts of digestive tract; Z98.890 Other specified postprocedural states; Z11.52 Encounter for screening for COVID-19; Z88.8 Allergy status to other drugs, medicaments and biological substances; Z79.899 Other long term (current) drug therapy; Z20.822 Contact with and (suspected) exposure to COVID-19
CPT/HCPCS: 0241U; 36415; 71045; 74177; 80048; 80053; 81001; 82803; 82947; 83605; 83690; 83735; 84484; 85025; 85610; 85730; 87040; 87086; 93005; 96361; 96365; 96375; 97110; 97163; 97530; 99285; 93010; A9270-GY; J0696; J1630; J1650; J2270; J2405; J3475; J3480; J3490; J7030; J7042; Q9967